=== PATIENT | female | born 1950 | race Caucasian/White ===

== ENCOUNTER 2024-12-19 13:42 | Emergency (ER) | payer MEDICARE, SELFPAY ==
--- OUTSIDE RECORDS SUMMARY | 2024-04-13 04:30 | XMS_ITS | Continuity of Care Document ---
Author Organization [facility], L TD Address [address] [place] [address] Phone Care Team Providers Care Tax Lawyer Name Role Phone Trace Limon MD Unavailable Unavailable Allergies, Adverse Reactions, Alerts Substance Reaction Status Criticality Rrzlvxc-NXT-QkX Reductase Inhibitors Acti ve No Information CIPROFLOXACIN HCL Active No Informa tion ciprofloxacin Active No Information Penicillins Active No Information Medications Medication Instructions Dosage Effective Dates (start - stop) Status Comments amlodipine 2.5 mg tablet take 1 tablet by oral route every day 2.5 MG - Active Vitamin D3 25 mcg (1,000 unit) capsule take 1 tablet by oral route every day 1 tablet - Active metoprolol tartrate 25 mg tablet take 1 tablet by oral route every day 25 MG - Active olmesartan 5 mg tablet take 1 tablet by oral route every day 5 MG - Active aspirin 81 mg tablet,delayed release take 1 tablet by oral route every day 81 MG - Active metformin 500 mg tablet take 1 tablet by oral route every day with morning and evening meals 500 MG - Active Zyrtec 10 mg tablet take 1 tablet by oral route every day 10 MG - Active irbesartan 75 mg tablet take 1 tablet by oral route every day 75 MG - No Longer Active Procedures Procedure Date [employer]DUS [employer] REFRACTION EYE EXAM ESTABLISHED PATIENT EYE EXAM ESTABLISHED PATIENT REFRACTION FUNDUS PHOTOGRAPHY EYE EXAM ESTABLISHED PATIENT REFRACTION EYE EXAM ESTABLISHED PATIENT REFRACTION EYE EXAM ESTABLISHED PATIENT FUNDUS PHOTOGRAPHY EYE EXAM, NEW PATIENT Vision svcs frames purchases EYE EXAM, NEW PATIENT VISION REFRACTION UPDATE Bifocal Lens Progressive lens per lens Lens Polycarb Bifocal Lens Progressive lens per lens Lens Polycarb A/R Standard [place] Roll And [place] Slip On Sunglasses Advance Directives Directive Yes / No Effective Date File Name No Information Encounters Encounter Description Practice Location Reason(s) For Visit Diagnoses Date Provider Providers Copied on Encounter [facility], [facility], [address] [place] [address], [id number] , tel:[phone] [facility] diabetic eye exam (chief complaint)v ision exam (chief complaint) Type 2 diabetes mellitus without complicationsLong term (current) use of oral hypoglycemic drugsHypermetropi a, bilateralRegular astigmatism, bilateralPresbyop iaAge-related nuclear cataract, bilateralVitreous degeneration, bilateral Ashly Woodward. [address] [place] [address], [id number], [place]. tel:[phone] Referring Provider: Trace iLmon I, [address] [place] [address], [id number]. tel:[phone] [facility], [facility], [address] [place] [address], [id number] , tel:[phone] [facility] diabetic eye exam (chief complaint)v ision exam (chief complaint) Age-related nuclear cataract, bilateralType 2 diabetes mellitus without complicationsNone xudative age-related macular degeneration, bilateral, early dry stageLong term (current) use of oral hypoglycemic drugsPresbyopia 4 Nikki Marie. [address] [place] [address], [id number], [place]. tel:[phone] Referring Provider: Marie Anderson, [address] [place] [address], [id number]. tel:[phone] [facility], [facility], [address] [place] [address], [id number] , [place] tel:[phone] [facility] cataract evaluation (chief complaint) Type 2 diabetes mellitus without complicationsNone xudative age-related macular degeneration, bilateral, early dry stageLong term (current) use of oral hypoglycemic drugsAge-related nuclear cataract, bilateral 3 Agusto Hooks. [address] [place] [address], [id number], [place]. tel:[phone] Referring Provider: Neva Flanagan, [address] [place] [address], [id number]. tel:[phone] [facility], [address] [place] [address], [id number] , [place] tel:[phone] [facility] diabetic eye exam (chief complaint)v ision exam (chief complaint) Combined forms of age-related cataract, bilateralType 2 diabetes mellitus without complicationsLong term (current) use of oral hypoglycemic drugsNonexudative age-related macular degeneration, bilateral, early dry stagePresbyopia 2 Nikki Salazar. [address] [place] [address], [id number], [place]. tel:[phone] Referring Provider: Marie Anderson, [address] [place] [address], [id number]. tel:[phone] [facility], [facility], [address] [place] [address], [id number] , [place] tel:[phone] [facility] no changes in vision (chief complaint) Vitreous degeneration, right eyeAge-related nuclear cataract, bilateralPresbyop ia 1 Nikki Salazar. [address] [place] [address], [address] [place] [address], . tel:[phone] [facility], [address] [place] [address], [id number] , tel:[phone] [facility] [place] (chief complaint) Vitreous degeneration, right eyeAge-related nuclear cataract, bilateral 1 Nikki Salazar. [address] [place] [address], [address] [place] [address], . tel:[phone] [facility], [address] [place] [address], [id number] , tel:[phone] [facility] No Information 3 Shirley Guillen. [address] [place] [address], [address] [place] [address], . [phone] [facility], [address] [place] [address], [address] [place] [address] , tel:[phone] [facility] PresbyopiaSenile nuclear sclerosis 2 Shirley Guillen. [address] [place] [address], [address] [place] [address], . tel:[phone] Family History Family Member Type Diagnosis Age At Onset Problem (finding) No Family history of St rabismus Problem (finding) No Family history of Re spiratory Disease Problem (finding) No Family history of Ca taracts Father Problem (finding) HBP Problem (finding) No Family history of St roke Problem (finding) No Family history of Ar thritis Mother Problem (finding) diabetes melli tus in first degree relative Mother Problem (finding) glaucoma Problem (finding) No Family history of He art Disease Problem (finding) No Family history of As thma Problem (finding) No Family history of Re tinal Disorders Problem (finding) No Family hist ory of Macular Degeneration Payers Payer name Insurance type Covered green party ID Authoriza tion(s) RR Medicare MB [id number] [facility] [id number] Social History Type Description Quantity Date Captured Comments Alcohol Use Details Unknown Caffeine Use Details Unknown Tobacco Use Status Moderate cigarette smoker (10-19 cigs/day) Smoking Status Heavy tobacco smoker Smoking Tobacco Use Details Cigarette: No Details Available Cigarette: 15 Cigarettes per day Sex Female Chief Complaint And Reason For Visit From encounter dated '04/13/2024 10:30'. diabetic eye exam (chief complaint). Description: The 73 year old patient presents for diabetic eyeexam in the right eye and left eye. Pt is taking oral medication. PCP is Senia Multani. Pt statesthat she did not check her BS this morning, but is using higher in the mornings ranging from 130-170. Pt states that lat A1C was 6 taken less than a year ago. vision exam (chief complaint). Description: The patient is present for dilated/vision exam in the right eye and left eye. Pt states that she has not noticed any changes in her vision in OU for distance and near with glasses. Pt states that when she started more HBP medication within the last 3 months that she started noticing floaters in the OS. Pt states that she has glare with lights at night. Pt denies pain or discomfort. Pt is not using any At's. Reason For Referral Reason For Referral No Information Plan Of Treatment Date Type Action Status Goal Tobacco cessation counseling completed Goal Tobacco cessation counseling completed Goal Tobacco cessation counseling completed Goal Tobacco cessation counseling completed Goal Tobacco cessation counseling completed History Of Present Illness Encounter Date Complaint History Of Prese nt Illness diabetic eye exam The 73 year ol d patient presents for diabetic eye exam in the right eye and left eye. Pt is taking oral medication. PCP is Senia Multani. Pt states that she did not check her BS this morning, but is using higher in the mornings ranging from 130-170. Pt states that lat A1C was 6 taken less than a year ago. Feb-28-2025 vision exam The patient is p resent for dilated/vision exam in the right eye and left eye. Pt states that she has not noticed any changes in her vision in OU for distance and near with glasses. Pt states that when she started more HBP medication within the last 3 months that she started noticing floaters in the OS. Pt states that she has glare with lights at night. Pt denies pain or discomfort. Pt is not using any At's. vision exam The patient is p resent for dilated vision exam in the right eye and left eye. Pt states that she has blurry vision OU for distance and near with glasses. Pt states that she has glare with lights. Pt denies pain or discomfort. Pt is not using any ATs. diabetic eye exam The 72 year ol d patient presents for diabetic eye exam in the right eye and left eye. Pt is taking oral medication. PCP is Senia Multani NP. Pt states that BS was 124 yesterday morning. Pt states that A1C is usually 6-6.4. cataract evaluation The 71 year old patient presents for evaluation of cataract evaluation in the right eye and left eye, referred SCS. Pt states she gets the glare at night from headlights. Pt states she does not see the road signs as well as she did before. Pt needs more light for reading. Pt does not use OTC eye drops/AT. Pt Type 2 Diabetic BS 103 and A1C 6.8. diabetic eye exam The 71 year ol d patient presents for evaluation of diabetic eye exam in the right eye and left eye. Pt is type 2 diabetic treating with oral meds. BS stable. Pt states BS runs 90-120 and last A1C was 3 months ago and it was 6. Please send letter to Argelia Multani. vision exam The patient is p resent for evaluation of vision exam in the right and left eye. Pt reports a decrease in vision since last exam. Pt states this affects both D&N c gls. Pt states that she does notice glare at night and she feels she can see better at night w/o glasses. Pt states she has not noticed any floaters in a while. Pt states that about 1 month ago, her СВЕТЛАНА was very tender. Pt thought her IOP might have went up, but it started feeling better the next day. Pt is not using eye meds or OTC AT. no changes in vision The 69 Year old female presents for f/u Vitreous Degeneration OD and Cataract OU. Pt states no changes in vision in the right eye and left eye since last exam, but has noticed occasional floaters every once in a while OD. It affects both near and far vision c gls. Pt states floaters dont move when she moves her eye and no flashes of light. The patient denies pain or discomfort and COVID-19 symptoms - temperature normal. Not using any eye meds or OTC AT. [place] The 69 Year old female presents for [place] in the unsure which eye. Pt notes she notices the [place] when either eye is closed, but always appears on the right side of vision. It started about 1 week(s) ago. It affects both near and far vision. The symptom is constant but patient states she has to look for it in brighter light. In addition, the condition is more noticeable in dimmer light. The patient denies COVID-19 symptoms - temperature normal and flashes, curtain pain. Pt notes some itching and dryness. No eye meds. Pt reports that 6 months ago she had some crusting but resolved with lid scrubs and using Systane. No longer Systane. Functional Status Date Functional Assessmen t No Information Instructions Date Instruction Additional Infor yoan Impression/Plan Impression/Plan Impression/Plan Impression/Plan Impression/Plan Impression/Plan - Return in 1 year with DRI for Ref T & D. Related to Presbyopia Presbyopia OU. Condi tion: will continue to monitor. NSC OU. Condition: will continue to monitor. - Presbyopia OU. REC updating RX with AR. No OAG. REC yearly eye exam especially to monitor for OAG. No retinal problems. NSC OU create glare. NSC OU. REC AR to reduce intensity of glare. Eyes appear healthy. 1 year for R,T,D Related to Presbyopia Assessments Type Assessment Date assessment Type 2 diabetes mellitus without complications assessment alf (current) use of oral hypoglycemic drugs assessment Hypermetropia, bilateral 2024 assessment Regular astigmatism, bilateral F assessment Presbyopia assessment Age-related nuclear cataract, bi lateral assessment Vitreous degeneration, bilateral Patient Care Teams Name Effective Dates (start - stop) Status Members No Information
--- OUTSIDE RECORDS SUMMARY | 2024-12-19 11:15 | XMS_ITS | Encounter Summary ---
Author Organization [facility] Address [address] [place] [address] Care Team Providers Care Gold Frame Assembler Name Role Phone Sandro Wilson MD Unavailable Senia Multani NP Unavailable [phone] Senia Multani NP Primary Care Provider + Reason for Visit * Reason Comments Post-op 12/03/24 TCAR w/ Lt Carotid angiogram & Aortic arch angiogram Lt Carotid stent @ Aortic arch w/ transcervical cutdown on Lt common artery Encounter Details Date Type Department Care Team (Late st Contact Info) Description 12/19/2024 11:15 AM PATIENTS TRANSPORTER Office Visit [facility] at [address] [place] [address] Wilbert Norman MD [facility] [address] [place] [address] [place] [address] Social History Tobacco Use Types Packs/Day Years Used Date Smoking Tobacco: Every Day Cigarettes 0.5 49 Started: 1975; Last attempted to quit: 2024 Smokeless Tobacco: Never Alcohol Use Standard Drinks/Week Comments Not Currently 0 (1 standard drink = 0.6 oz pur e alcohol) Social Connection and Isolation Panel Answer Date Recorded In a typical week, how many times do you talk on the phone with family, friends, or neighbors? More than three times a week 12/04/2024 How often do you get togethe r with friends or relatives? Three times a week 12/04/2024 How often do you attend chur ch or baptist services? Never 12/04/2024 Do you belong to any clubs o r organizations such as religious groups, unions, fraternal or athletic groups, or school groups? Yes 12/04/2024 How often do you attend meet ings of the clubs or organizations you belong to? More than 4 times per year 12/04/2024 Are you , , di vorced, , never , or living with a partner? 12/04/2024 AUDIT-C Answer Date Recorded Q1: How often do you have a drink containing alcohol? Never 11/28/2024 Q2: How many drinks containi ng alcohol do you have on a typical day when you are drinking? Patient does not drink Q3: How often do you have si x or more drinks on one occasion? Never 11/28/2024 Overall Financial Resource Strain (CARDIA) Answe r Date Recorded How hard is it for you to pa y for the very basics like food, housing, medical care, and heating? Not hard at all 12/04/2024 Hunger Vital Sign Answer Date Recorded Within the past 12 months, y ou worried that your food would run out before you got the money to buy more. Never true 12/05/19 25 Within the past 12 months, t he food you bought just didn't last and you didn't have money to get more. Never true 12/04/2024 PRAPARE - Transportation Answer Date Re corded In the past 12 months, has l ack of transportation kept you from medical appointments or from getting medications? No 11/15 In the past 12 months, has l ack of transportation kept you from meetings, work, or from getting things needed for daily living? No 12/04/2024 Housing Stability Vital Sign Answer Allen e Recorded In the last 12 months, was t here a time when you were not able to pay the mortgage or rent on time? No 12/04/2024 In the past 12 months, how m any times have you moved where you were living? 0 12/04/2024 At any time in the past 12 m [facility], were you homeless or living in a long term (including now)? No 12/04/2024 [facility] Utilities Answer Date Recorded In the past 12 months has th [employer], gas, oil, or water company threatened to shut off services in your home? No 12/04/2024 Personal Safety Answer Date Recorded Have you ever been in or are you currently in a harmful physical or emotional relationship or is someone making you feel afraid or unsafe? Denies 12/03/2024 Comments No Sex and Gender Information Value Date Recorded Sex Assigned at Not on file Legal Sex Female 4:20 AM PATIENTS TRANSPORTER Gender Identity Not on file Sexual Orientation Not on file documented as of this encounter Last Filed Vital Signs Vital Sign Reading Time Taken Comments Blood Pressure 152/84 12/19/2024 11:09 AM PATIENTS TRANSPORTER Pulse 66 12/19/2024 11:09 AM PATIENTS TRANSPORTER Temperature - - Respiratory Rate - - Oxygen Saturation 99% 12/19/2024 11:09 AM PATIENTS TRANSPORTER Inhaled Oxygen Concentration - - Weight 68 kg (150 lb) 12/19/2024 11:09 AM PATIENTS TRANSPORTER Height 157.5 cm (5' 2) 12/19/2024 11:09 AM PATIENTS TRANSPORTER Body Mass Index 27.44 12/19/2024 11:09 AM PATIENTS TRANSPORTER documented in this encounter Functional Status * BP Location Answer Date of Assessment Author Left arm 12/19/2024 11:09 AM PATIENTS TRANSPORTER Rony Felder MA * BP Location Answer Date of Assessment Author Left arm 12/19/2024 11:09 AM PATIENTS TRANSPORTER Rony Felder MA documented as of this encounter Plan of Treatment Not on file documented as of this encounter Visit Diagnoses Not on filedocumented in this encounter Care Teams Gold Frame Assembler Relationship Specialty Start Date End Date Senia Multani NP [address] [place] [address] PCP - General Nurse Practitioner 11/21/24 Sandro Wilson MD Referring Physician Cardiology 11/12/24 Senia Multani NP [address] [place] [address] Nurse Practitioner 11/12/24 documented as of this encounter
[2024-12-19 13:59] VITALS: BP 116/61; PULSE 70; RESP 18; TEMP 36.8; O2SAT 97
[2024-12-19 14:09] LABS: EDUAAPPEAR Clear; EDUABILI 1+ (Negative); EDUABLOOD Negative (Negative); EDUACOLOR1 Dark; EDUAGLUCOSE Negative (Negative); EDUAKETONE Trace (Negative); EDUALEUKO Trace (Negative); EDUANITRATE Negative (Negative); EDUAPH 6.0; EDUAPROTEIN 1+ (Negative); EDUASPGRAVITY 1.020; EDUAUROBILI 0.2
--- NOTE | 2024-12-19 14:40 | ED_ITS ---
HPI - Female Genitourinary General Chief complaint: Urogenital-Female Stated complaint: ear/UTI Time Seen by Provider: 12/19/24 14:08 Source: patient and RN notes reviewed Mode of arrival: ambulatory Limitations: no limitations History of Present Illness HPI Narrative: 74 year old female patient with hx of CVA in Oct, cardiac and carotid stents 2 weeks ago, presents today complaining of intermittent sharp left ear pain x2 days without drainage or muffled hearing. Currently rates her pain 3/10. She has tried tylenol, motrin, and zyrtec for her pain withour relief. She is also complaining of urgency, frequency, headache, and low back pain that has been sporadic over the last 5-6 days. States she experienced symptoms 5 days ago, then symptoms were absent for 3-4 days before returning again. Denies fever, hematuria, paresthesias. Related Data Home Medications ?Medication ?Instructions ?Recorded ?Confirmed ?Last Taken ?Type alprazolam 0.5 mg tablet mg 12/19/24 Unknown History amlodipine 10 mg tablet mg 12/19/24 Unknown History clopidogrel 75 mg tablet mg 12/19/24 Unknown History ezetimibe 10 mg tablet mg 12/19/24 Unknown History metformin 500 mg tablet mg 12/19/24 Unknown History metoprolol succinate 25 mg mg PO 12/19/24 Unknown His tory tablet,extended release 24 hr nitroglycerin 0.4 mg sublingual mg 12/19/24 Unknown H istory tablet olmesartan 40 mg tablet mg 12/19/24 Unknown History Allergies Allergy/AdvReac Type Severity Reaction Status Date / Time Penicillins Allergy Mild Hives Verified 12/19/24 13:45 [facility] Past Medical History Medical History (Updated 12/19/24 @ 15:02 by Kiara Fabian APRN, SH[facility]) History of CVA (cerebrovascular accident) Hypertension Surgical History Surgical History (Updated 12/19/24 @ 15:01 by Kiara Fabian APRN, SHARON) H/O heart artery stent Comments At time of signature, I have reviewed and agree with nursing past medical, surgical, social and family history unless otherwise noted. Please see nursing chart for further information. There is no relevant family history pertinent to the presenting complaint Exam Narrative: GENERAL: Well-appearing, well-nourished, and in no acute distress. HEAD: Normocephalic, atraumatic. EYES: EOMI. PERRL. No redness or drainage. Conjunctivae normal. ENT: Mucous membranes pink and moist. Nares clear. No rhinorrhea. Right TM normal. Left TM with moderate amount of cerumen in the canal with occlusion of the TM. See procedure note. NECK: Normal AROM. Surgical wound noted to the left anterior neck. CHEST: No respiratory distress. Clear to auscultation. HEART: Regular rate and rhythm. No murmur appreciated. MUSCULOSKELETAL: No bony tenderness. EXTREMITIES: Normal range of motion. No edema. SKIN: Warm, dry, no rash. Capillary refill normal. Normal skin turgor. NEURO: No focal deficits. Alert and oriented x3. Gait steady. PSYCH: Normal affect. No signs of depression or anxiety. Course Course Level of Care: Express Care Visit Vital Signs Vital signs: Vital Signs Temperature 98.3 F 12/19/24 13:59 Pulse Rate 70 12/19/24 13:59 Respiratory Rate 18 12/19/24 13:59 Blood Pressure 116/61 12/19/24 13:59 Pulse Oximetry 97 12/19/24 13:59 Oxygen Delivery Room Air 12/19/24 13:59 Temperature 98.3 F 12/19/24 13:59 Pulse Rate 70 12/19/24 13:59 Respiratory Rate 18 12/19/24 13:59 Blood Pressure 116/61 12/19/24 13:59 Pulse Oximetry 97 12/19/24 13:59 Oxygen Delivery Room Air 12/19/24 13:59 Reviewed Procedures Ear Wax Removal Left Ear: Ear Wax Removal Date: 12/19/24 Ear Wax Removal Time: 14:20 Cerumenolytic Used: other (water with small amt of peroxide) Results: Re-examined: cerumen removed completely TM Examination: TM(s) intact, normal appearance Ear Canal Exam: atraumatic Patient Tolerated Procedure: well Complications: no problems Technique: ear canal irrigated and ear canal curetted MDM - Female Genitourinary MDM Narrative Medical decision making narrative: 74 year old female patient with hx of CVA in Oct, cardiac and carotid stents 2 weeks ago, presents today complaining of intermittent sharp left ear pain x2 days without drainage or muffled hearing. Currently rates her pain 3/10. She has tried tylenol, motrin, and zyrtec for her pain withour relief. She is also complaining of urgency, frequency, headache, and low back pain that has been sporadic over the last 5-6 days. States she experienced symptoms 5 days ago, then symptoms were absent for 3-4 days before returning again. Denies fever, hematuria, paresthesias. Upon exam, patient had left ear canal with moderate cerumen causing loss of visualization of the TM. Cerumen removal accomplished with some irrigation and curette use. Visualization of the left TM showed a moderate serous otitis media without evidence of bacterial infection. Recommend starting some Flonase. Patient's urinalysis shows 1+ protein, trace ketones, and trace leukocytes. Taking into account this urinalysis as well as patient is very sporadic urinary symptoms, using shared decision making, will wait for urine culture to come back before starting patient on antibiotics for UTI. VSS. Anticipatory guidance. ED precautions given. Differential Diagnosis Differential diagnosis: Likely urinary tract infection and other (Pyelonephritis, otitis media, otitis externa, ruptured TM, serous otitis) Lab Data Labs: Lab Results 12/19/24 Range/Units 14:06 POC Urine Color Dark POC Urine Clarity Clear POC Urine pH 6.0 POC Ur Specif [place] 1.020 POC Urine Protein 1+ (Negative) POC Ur Glucose (UA) Negative (Negative) POC Urine Ketones Trace (Negative) POC Urine Blood Negative (Negative) POC Urine Nitrite Negative (Negative) POC Urine Bilirubin 1+ (Negative) POC Urine Urobilinogen 0.2 POC U Leukocyte Esteras Trace (Negative) Critical Care Time Critical Care Time Critical Care Time: No Discharge Plan Discharge Clinical Impression: Symptoms of urinary tract infection, Impacted cerumen of left ear Acute serous otitis media of left ear Qualifiers: Recurrence: non-recurrent Qualified Code(s): H65.02 - Acute serous otitis media, left ear Patient Disposition: Home Condition: Stable Instructions: Fluid In The Ear (Serous Otitis Media) (ED) Additional Instructions: Your left ear exam showed a small amount of fluid behind the eardrum. Please consider starting some Flonase to help with this. You may continue Tylenol as well. Your urinalysis at this time is not consistent with active infection. You will be notified in a few days if your urine culture comes back positive for infection and appropriate antibiotics will be called in for you at that time. If symptoms worsen to include fever, severe abdominal or back pain, vomiting, please go to the ER immediately for further evaluation and treatment. Patient Language: Mongolian Prescriptions: No Action metformin 500 mg tablet clopidogrel 75 mg tablet alprazolam 0.5 mg tablet amlodipine 10 mg tablet nitroglycerin 0.4 mg tablet, sublingual metoprolol succinate 25 mg tablet extended release 24 hr PO olmesartan 40 mg tablet ezetimibe 10 mg tablet Follow-up/Referrals: UNKNOWN,DOCTOR [Primary Care Provider] Time of Disposition: 14:39
--- OUTSIDE RECORDS SUMMARY | 2024-12-20 13:04 | XMS_ITS | Encounter Summary ---
Author Organization [facility] Address [address] [place] [address] Phone Care Team Providers Care Neurology Tech Name Role Phone Senia Multani APRN Primary Care Provider Encounter Details Date Type Department Care Team (Latest Contact Info) Description 04/15/2023 Transcribe Orders [facility] [address] [place] [address] Gisella Bella MD [address] [place] [address] [phone] (Work) Encounter for screening mammogram for breast cancer (Primary Dx) Social History Tobacco Use Types Packs/Day Years Used Date Smoking Tobacco: Every Day Cigarettes 0.5 30 Smokeless Tobacco: Never Alcohol Use Standard Drinks/Week Comments Yes 0 (1 standard drink = 0.6 oz pur e alcohol) AUDIT-C Answer Date Recorded Frequency of Alcohol Consumption Monthly or less 11/16/2018 Average Number of Drinks Not on file 019 Frequency of Binge Drinking Not on file 04/2018 Comments No Sex and Gender Information Value Date Recorded Sex Assigned at Not on file 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 Gender Identity Not on file Sexual Orientation Not on file Occupation Industry Job Start Date Job End Date [employer] Not on file Not on file N ot on file documented as of this encounter Plan of Treatment Upcoming Encounters Date Type Department Care Team (Late st Contact Info) Description 03/21/2025 9:15 AM PRODUCT DEVELOPMENT TECHNICIAN Office Visit [facility] Dermatology [facility] [address] [place] [address] Arely Clemens, YUNIER [address] [place] [address] documented as of this encounter Visit Diagnoses Diagnosis Encounter for screening mammogram for breast cancer- Primary documented in this encounter Care Teams Neurology Tech Relationship Specialty Start Date End Date Senia Multani APRN PCP - General Family Medicine 01/20/17 documented as of this encounter
--- OUTSIDE RECORDS SUMMARY | 2024-12-20 13:04 | XMS_ITS | Clinical Summary ---
Author Organization [facility] Address [address] [place] [address] Phone Care Team Providers Care Batter Scaler Name Role Phone Senia Multani APRN Primary Care Provider Allergies Active Allergy Reactions Criticality Noted Date Comments Atorvastatin Nausea & Vomiting Medium 05/31/2017 Muscle aches, GERD, weakness, nausea Ciprofloxacin Hives,Rash Low 11/16/2018 Gum-Pv Alcohol-Dental Adhesive Rash Low 02/22/2023 Latex Unknown 11/30/2019 Nitrofurantoin Monohyd/M-Cryst Palpitations Low 10/24/2018 Penicillins Anaphylaxis High 05/31/2017 Hypotension, passed out, N/V, anxiety Dgyiluz-Vin-Hbh Reductase Inhibitors Nausea Low 02/22/2023 Tapentadol Nausea Low 10/24/2018 Medications metFORMIN (GLUCOPHAGE) 500 mg tablet Take by mouth 2 (two) times daily Active cetirizine (ZYRTEC) 10 mg tablet Take 1 tablet by mouth Active ALPRAZolam (XANAX) 0.5 mg tablet Active albuterol HFA 90 mcg/actuation inhaler Take 2 puffs inhaled by mouth 9 Active cholecalciferol (VITAMIN D3) 25 mcg (1,000 unit) capsule Take 1,000 Units by mouth Active aspirin enteric coated 81 mg tablet, delayed release Take 81 mg by mouth every day Active metoprolol succinate ER (TOPROL XL) 25 mg extended release tabletIndication s:Essential (primary) hypertension Take 1 tablet (25 mg total) by mouth every day 90 tablet 3 4 Active Additional Information Patient not taking.Reported on 04/19/2024 olmesartan (BENICAR) 40 mg tabletIndication s:Essential (primary) hypertension Take 1 tablet (40 mg total) by mouth at bedtime 90 tablet 3 4 Active amLODIPine (NORVASC) 10 mg tablet Take 10 mg by mouth Active acetaminophen 325 mg tablet Take 325 mg by mouth Active Active Problems Problem Noted Date Diagnosed Date Atherosclerotic heart diseas e of [place] coronary artery without angina pectoris 12/29/2020 Assessment & Plan (09/19/2023 9:43 PM CDT): Coronary disease is stable without angina. I recommend continued medical therapy. If she develops any significant chest pain or shortness breath with exertion she will be scheduled for coronary angiogram. Assessment & Plan (06/14/2022 10:53 PM CDT): Coronary disease is stable without angina. I recommend medical therapy. I recommend risk factor modification including control of blood pressure and lipids. I recommend target LDL less than 70. I recommend target blood pressure less than 130/80 mm Hg. Assessment & Plan (11/16/2021 10:25 PM CDT): She does not have any symptoms of angina or anginal equivalent. At this time she requires medical therapy and risk factor modification. She is on aspirin. Unfortunately she did not tolerate atorvastatin and rosuvastatin because of myalgias. She is not willing to try Zetia or PCSK9 inhibitor. Assessment & Plan (05/04/2021 12:42 PM CDT): She does not have any angina. He requires aggressive risk factor modification. She does not want to take statin or PCSK9 inhibitor. Her blood pressure was also elevated but her blood pressure at home is much better controlled. I discussed with her option of restarting metoprolol succinate. She did not want to add any other medicine at this time. Assessment & Plan (04/06/2021 12:44 PM YARD SPOTTER): Coronary artery disease is stable. She does not have any angina. Previous coronary CT angiogram November 2020 showed 40-50% lad stenosis, 20-30% proximal left circumflex artery stenosis and 40 50% proximal and mid right coronary stenosis with normal ejection fraction. I recommend medical therapy and risk factor modification. Assessment & Plan (12/29/2020 11:08 AM YARD SPOTTER): Coronary disease is not severe and she does not have any angina. She requires medical therapy and risk factor modification. I have added amlodipine 5 mg daily. She is already on carvedilol 12.5 mg twice a day. She is on aspirin 325 mg daily. I have ordered rosuvastatin 10 mg daily. I recommend continued medical therapy. She does not require further cardiac workup at this time. I recommended that she quit smoking. Shortness of breath 08/12/2020 Assessment & Plan (08/12/2020 1:42 PM CDT): Predominantly pulmonary, continues to smoke, probable recent bronchitis, COVID- 19 last December. Symptoms improved with Pulmonary management. Need to exclude cardiac component, patient is concerned about cardiac inflammation and heart function. History of atypical nevus 12/06/2019 Abdominal aortic aneurysm (AAA) without rupture 11/16/2018 Atherosclerosis of [place] ar yessenia of both lower extremities with intermittent claudication 11/16/2018 Benign neoplasm of skin 11/16/2018 Bilateral carotid artery stenosis 11/16/2018 Benign paroxysmal positional vertigo, bilateral 11/16/2018 Degeneration of intervertebral disc of lumbar re gion 11/16/2018 Essential (primary) hypertension 11/16/2018 Assessment & Plan (09/19/2023 9:40 PM CDT): Blood pressure is significantly elevated. States that her blood pressure at home is around 130/80 mm Hg. I have started her on metoprolol succinate 25 mg daily. She is on olmesartan 40 mg daily. I have change olmesartan to 40 mg at night instead of morning. Assessment & Plan (06/14/2022 10:48 PM CDT): Blood pressure in clinic was elevated. She states that at home her blood pressure is 130/75 mm Hg. She is on maximum dose of olmesartan 40 mg daily. She did not tolerate amlodipine because of adverse effects including feeling sick, muscle pain, nausea and dizziness. She states that she could not function when she took amlodipine. Because of her diabetes mellitus target blood pressure should be 130/80 mm Hg or below. She does not want to take any additional blood pressure medication at this time. If in future she agrees to add a blood pressure medicines then option would be to start her on hydrochlorothiazide 25 mg daily along with potassium chloride 10 mEq daily. Assessment & Plan (11/16/2021 10:22 PM CDT): Blood pressure is under control on current medications. Assessment & Plan (05/04/2021 12:40 PM CDT): Blood pressure in the clinic with her own machine and clinic machine was elevated. Repeat blood pressure was 162/84 mm Hg. Prior to leaving her blood pressure did come down. She her machine recorded blood pressure of 138/80 mm Hg. Previously she was on metoprolol succinate 50 mg daily and she was able to tolerate this medicine without too much adverse effects. For now she will continue olmesartan 40 mg daily without any other medication. She states that she wants to continue her medications and not add any medicine at this time. Assessment & Plan (04/06/2021 12:47 PM YARD SPOTTER): He blood pressure is significantly elevated today. She cut down her carvedilol to 3.125 mg twice a day because of fatigue and tiredness and bad dreams at night. She quit taking amlodipine because of adverse effects. She thought that this medicine was causing her to have urinary incontinence and myalgias in combination with statin. She is on olmesartan 40 mg daily. I have added hydralazine 10 mg twice a day. I recommend that she bring her home blood pressure machine with her next time to check blood pressure with home machine and clinic by over machine and evaluate for any discrepancies or inaccuracy of home machine. Assessment & Plan (12/29/2020 11:04 AM YARD SPOTTER): Her blood pressure is not adequately controlled. Blood pressure in the right arm was higher than the left and I explained to her that right arm blood pressure is accurate and she should check blood pressure in the right arm only. I have added amlodipine 5 mg daily. She will continue all valsartan 40 mg daily and carvedilol 12.5 mg twice a day. Assessment & Plan (08/12/2020 1:41 PM CDT): Borderline control today, has not been checking it recently. No angina. Normal stress echo 2016. EF 55-60% 2019. Assessment & Plan (08/13/2019 10:17 AM CDT): Blood pressure controlled. No recent chest pain. Normal stress echo 2017. Recent EF 55-60%. Symptomatically doing well. GERD (gastroesophageal reflux disease) 9 History of nonmelanoma skin cancer 11/16/2018 Hypercholesterolemia 11/16/2018 Assessment & Plan (09/19/2023 9:43 PM CDT): Previously she did not tolerate atorvastatin and rosuvastatin because of myalgias. I recommended PCSK9 inhibitor therapy with Repatha. She did not agree to taking Repatha. Also she did not agree to taking Zetia. She does have coronary disease and peripheral arterial disease and she is status post left carotid endarterectomy in the past. She was diabetes mellitus and she has an active smoker. She however refused lipid-lowering therapy with Zetia or Repatha. Assessment & Plan (06/14/2022 10:52 PM CDT): She is intolerance to atorvastatin and rosuvastatin because of myalgias. She is extensive atherosclerotic cardiovascular disease in multiple vascular beds including carotid disease status post left carotid endarterectomy, coronary disease with correlated 50% proximal and mid right coronary artery stenosis, 40-50% ostial 1st diagonal artery stenosis and 20-30% proximal left circumflex artery stenosis. Also she is peripheral vascular disease and small abdominal aortic aneurysm. Target LDL 70 or below. Previous lipids on 09/20/2021 showed LDL 181. I discussed with her option of adding PCSK9 inhibitor such as Repatha 140 mg subcutaneous every 2 weeks. She refused Repatha. I discussed with her option of taking Zetia 10 mg daily which is likely to improve her LDL by 15 %. She does not want to take Zetia. I recommended low-cholesterol diet less than 200 mg cholesterol per day. Recommend that she cut down red meat, egg yolk and dairy products. I recommended regular exercise program at least 45 minutes of exercise 5 days a week. I discussed with her option of [id number] lipid lowering supplements such as CholesteRice which is red yeast rice products which has been shown to reduce LDL and total cholesterol. I did explain to her that only statin therapies and PCSK9 inhibitor therapy has been shown to prevent cardiovascular events including heart attack and stroke. Other therapies help improve the LDL but there is no proof that they prevent cardiovascular events including heart attack and stroke. After the discussion she would like to try lifestyle modification and then repeat cholesterol test and then decide on taking lipid-lowering [id number] supplement surgery as red yeast rice preparation. She is not agreeing to PCSK9 inhibitor therapy or Zetia. Assessment & Plan (11/16/2021 10:24 PM CDT): She did not tolerate atorvastatin and rosuvastatin because of myalgias. I discussed with her further options regarding markedly elevated LDL of 181. She has coronary disease and she has carotid artery disease status post left carotid endarterectomy and she has bilateral peripheral arterial disease. Target LDL 70 or less. I discussed with her further options. I recommended PCSK9 inhibitor such as Repatha 140 mg subcutaneous every 14 days. She refused to take Repatha. I discussed with her option of trying Zetia 10 mg daily. She refused that as well. She does not want to take any cholesterol medicine at this time. She is well aware of the risks of progression of coronary disease peripheral artery disease and carotid disease and risk of heart attack stroke and limb ischemia. I also recommended that she quit smoking. Assessment & Plan (05/04/2021 12:41 PM CDT): She has mixed hyperlipidemia. She is diabetic. Target LDL less than 100. Her LDL is 121. She did not tolerate atorvastatin because of myalgias. She did not tolerate rosuvastatin because of myalgias. I discussed with her option of switching to PCSK9 inhibitor such as Repatha subcutaneous twice a month. She does not want to take any new medicine at this time. She does have multivessel atherosclerotic disease including carotid artery stenosis, peripheral arterial disease and coronary disease. I did explain that in the absence of statin or PCSK9 inhibitor she is likely to have progression of her vascular and coronary disease. She states that she does not want to take additional medicines at this time. She is aware of the risks of not taking statin or PCSK9 inhibitor. Assessment & Plan (04/06/2021 12:47 PM YARD SPOTTER): She complains of myalgias. I have instructed her to take rosuvastatin 10 mg every other day. Assessment & Plan (12/29/2020 11:06 AM YARD SPOTTER): She has not started rosuvastatin 5 mg daily. Her previous LDL is 124 with HDL 53 and triglyceride 132 on 07/29/2020. She has multivessel coronary disease with 40-50% LAD and 40-50% right coronary artery stenosis and 20-30% left circumflex stenosis. She also has carotid stenosis and peripheral artery disease. Target LDL less than 70. I have ordered rosuvastatin 10 mg daily and follow-up lipids and ALT level after 3 months. I recommended low-cholesterol diet less than 20 mg per day. I recommend that she cut down red meat, egg yolk and dairy products. Assessment & Plan (08/12/2020 1:42 PM CDT): History of intolerance to atorvastatin. Refuses other statins. Not interested in the PCSK9 inhibitors. Assessment & Plan (08/13/2019 10:17 AM CDT): Statin intolerant, followed by primary care Osteopenia 11/16/2018 Other specified peripheral vascular diseases 04/2018 Uterine prolapse 11/16/2018 Vitamin D deficiency 11/16/2018 Anxiety, generalized 07/19/2018 Type 2 diabetes mellitus wit h hyperglycemia, without long-term current use of insulin 07/19/2018 Aortoiliac occlusive disease 06/03/2017 Assessment & Plan (08/12/2020 1:42 PM CDT): Extensive peripheral vascular disease, followed by the vascular team, has abdominal aortic aneurysm being monitored Assessment & Plan (08/13/2019 10:17 AM CDT): Extensive peripheral vascular disease, followed by the vascular team Resolved Problems Problem Noted Date Diagnosed Date Resolved Date Encounter for preprocedural cardiovascular examination 11/16/2018 06/13/2019 Encounters Date Type Department Care Team Description 11/29/2024 Telephone [facility] [address] [place] [address] Byron Villarreal APRN Missed Appointment 10/08/2024 Refill [facility] Card[facility] [address] [place] [address] Adelfo Voss MD Refill Request from Last 3 Months Family History Medical History Relation Name Comments Blood Disease Daughter Nunu Hodgkins Hodgkin's Daughter Nunu Diabetes Father Heart Father one bypass Other Father occlusion from left femoral to popliteal Squamous Cell Cancer Father Breast Cancer Mother Laura had breast can cer twice. 40 was second diagnosis Colon Cancer Mother Laura Diabetes Mother Laura No Pertinent Hx Son Ovarian Cancer Negative Relation Name Status Comments Daughter Nunu Alive Father Maternal Grandfather Maternal Grandmother Mother Laura Paternal Grandfather Paternal Grandmother Son Alive Social History Tobacco Use Types Packs/Day Years Used Date Smoking Tobacco: Every Day Cigarettes 0.5 30 Smokeless Tobacco: Never Tobacco Cessation:Ready to Q uit: Not Asked; Counseling Given: Not Answered Alcohol Use Standard Drinks/Week Comments Not Currently 0 (1 standard drink = 0.6 oz pur e alcohol) Rarely AUDIT-C Answer Date Recorded Frequency of Alcohol Consumption Monthly or less 11/16/2018 Average Number of Drinks Not on file 019 Frequency of Binge Drinking Not on file 04/2018 Comments No Sex and Gender Information Value Date Recorded Sex Assigned at Not on file Legal Sex Female 8:07 AM YARD SPOTTER Gender Identity Not on file Sexual Orientation Not on file Occupation Industry Job Start Date Job End Date [employer] Not on file Not on file N ot on file Last Filed Vital Signs Vital Sign Reading Time Taken Comments Blood Pressure 112/80 04/19/2024 11:11 AM YARD SPOTTER Pulse 82 04/19/2024 11:11 AM YARD SPOTTER Temperature 36.4 C (97.5 F) 01/09/2024 8:09 AM YARD SPOTTER Respiratory Rate 13 01/09/2024 10:05 AM YARD SPOTTER Oxygen Saturation 97% 04/19/2024 11:11 AM YARD SPOTTER Inhaled Oxygen Concentration - - Weight 60.1 kg (132 lb 6.4 oz) 04/19/2024 11:11 AM YARD SPOTTER Height 157.5 cm (5' 2) 04/19/2024 11:11 AM YARD SPOTTER Body Mass Index 24.22 04/19/2024 11:11 AM YARD SPOTTER Plan of Treatment Upcoming Encounters Date Type Department Care Team (Late st Contact Info) Description 03/21/2025 9:15 AM YARD SPOTTER Office Visit [facility] [address] [address] Arely Clemens, PA [address] [place] [address] Health Maintenance Due Date Last Done Comments HCPOA Document on File 2000 Zoster (Shingles) Vaccine (1 of 2) 2000 Eligible for Initial Annual Medicare Wellness Exam 11/14/2016 Pneumococcal Vaccines (50+) (2 of 2 - PCV) 11/11/2017 11/11/2016 Diabetes: Foot Exam 11/16/2018 Diabetes: Urine Microalbumin 11/16/2018 Diabetes: Glyco Hemoglobin A1C 03/20/2023 09/17/2022 Diabetes: Comprehensive Metabolic Panel 09/18/2023 09/17/2022, 04/26/2022, 06/14/2017 Lipid Panel 09/18/2023 09/17/2022 COVID-19 Vaccine ( season) 2024 Influenza Vaccine (#1) 2024 , 12/15/2022, 01/12/2021, Additional history exists Breast Cancer Screening 10/30/2024 10/31/19 24, 10/31/2023, 05/10/2022, Additional history exists Depression Screening 02/16/2025 02/17/2024, 02/16/2023, 02/26/2022, Additional history exists Fall Screening 02/16/2025 02/17/2024, 02/16/2023 Diabetes: Eye (Ophthalmology) Exam 04/13/2025 04/13/2024, 04/13/2024, 03/23/2023, Additional history exists DTaP/Tdap/Td Vaccines (2 - Td or Tdap) 09/19/2025 09/20/2015 RSV Vaccine (60+/) (1 - 1-dose 75+ series) 2025 Diagnostic Colonoscopy 01/08/2029 01/09/2024, 2023 HIB Vaccines Aged Out No longer eligi ble based on patient's age to complete this topic HPV Vaccines Aged Out No longer eligi ble based on patient's age to complete this topic Hepatitis A Vaccines Aged Out No long er eligible based on patient's age to complete this topic Hepatitis B Vaccines Aged Out No long er eligible based on patient's age to complete this topic IPV Vaccines Aged Out No longer eligi ble based on patient's age to complete this topic Meningococcal B Vaccine Aged Out No l onger eligible based on patient's age to complete this topic Meningococcal Vaccine (ACWY) Aged Out No longer eligible based on patient's age to complete this topic Rotavirus Vaccines Aged Out No longer eligible based on patient's age to complete this topic Procedures Procedure Name Priority Date/Time Associated Diagnosis Comments COLONOSCOPY 01/09/2024 8:59 AM YARD SPOTTER YADIEL SCREENING BREAST BILATERAL W/CAD Routine 10/31/2023 7:54 AM CDT Screening mammogram, encounter for GLYCO HB A1C Routine 09/17/2022 7:46 AM CDT Elevated glucose GENERAL HEALTH PANEL Routine 09/17/2022 7:46 AM CDT Elevated cholesterol LIPID PANEL (W/ DIRECT LDL) Routine 09/17/2022 7:45 AM CDT Hypercholesterolemia Atherosclerosis of [place] coronary artery of [place] heart without angina pectoris from Last 3 Months or Most Recently Relevant to Health Maintenance Results * COLONOSCOPY (01/09/2024 8:59 AM YARD SPOTTER) REPORT COMPONENT Attending MD: Shania Jackson MD, [id number] Procedure: Colonoscopy [facility] REPORT COMPONENT Findings: The terminal ileum appeared normal. Three sessile polyps were found in the sigmoid colon. The polyps were 2 to 3 mm in size. These polyps were removed with a cold biopsy forceps. Resection and retrieval were complete. Non-bleeding internal hemorrhoids were found during retroflexion. The hemorrhoids were Grade I (internal hemorrhoids that do not prolapse). The exam was otherwise normal throughout the examined colon. [facility] REPORT COMPONENT Recommendation: - Patient has a contact number available for emergencies. The signs and symptoms of potential delayed complications were discussed with the patient. Return to normal activities tomorrow. Written discharge instructions were provided to the patient. - Resume previous diet. Start fiber supplements such as Metamucil on a daily basis. - Continue present medications. - Repeat colonoscopy date to be determined after pending pathology results are reviewed for surveillance. - The findings and recommendations were discussed with the designated responsible adult. - Discharge patient to home (with escort). - The patient will be observed post-procedure, until all discharge criteria are met. [facility] Anatomical Region Laterality Modality Other 01/09/2024 8:59 AM YARD SPOTTER Impressions 01/09/2024 9:36 AM YARD SPOTTER Impression: - The examined portion of the ileum was normal. - Three 2 to 3 mm polyps in the sigmoid colon, removed with a cold biopsy forceps. Resected and retrieved. - Non-bleeding internal hemorrhoids. Narrative 01/09/2024 9:36 AM YARD SPOTTER [facility] Patient Name: Cinthia Vela Procedure Date: 01/09/2024 8:59 AM Gender: Female Date of : 1950 Indications: Abdominal pain in the right lower quadrant, Change in bowel habits. Personal history of polyps Medicines: Fentanyl 100 micrograms IV, Midazolam 6 mg IV, The level of sedation administered was moderate, Sedation Administered by the Nurse, See Nursing Notes for medication administration Estimated Blood Loss: Estimated blood loss: none. Complications: No immediate complications. No blood products administered. Implants or grafts: None permanent Procedure: Pre-Anesthesia Assessment: - Prior to the procedure, a History and Physical was performed, and patient medications and allergies were reviewed. The patient's tolerance of previous anesthesia was also reviewed. The risks and benefits of the procedure and the sedation options and risks were discussed with the patient. All questions were answered, and informed consent was obtained. Prior Anticoagulants: The patient has taken no anticoagulant or antiplatelet agents. ASA Grade Assessment: II - A patient with mild systemic disease. After reviewing the risks and benefits, the patient was deemed in satisfactory condition to undergo the procedure. After I obtained informed consent, the scope was passed under direct vision. Throughout the procedure, the patient's blood pressure, pulse, and oxygen saturations were monitored continuously. The Colonoscope was introduced through the anus and advanced to the terminal ileum, with identification of the appendiceal orifice and IC valve. The colonoscopy was performed without difficulty. The patient tolerated the procedure well. The quality of the bowel preparation was adequate. The quality of the bowel preparation was evaluated using the BBPS ([place] Bowel Preparation Scale) with scores of: Right Colon = 3 (entire mucosa seen well with no residual staining, small fragments of stool or opaque liquid), Transverse Colon = 3 (entire mucosa seen well with no residual staining, small fragments of stool or opaque liquid) and Left Colon = 3 (entire mucosa seen well with no residual staining, small fragments of stool or opaque liquid). The total BBPS score equals 9. The terminal ileum, the appendiceal orifice and the rectum were photographed. Providers: Shania Jackson MD Procedure Code(s): --- Technical --- 38906, Colonoscopy, flexible; with biopsy, single or multiple Diagnosis Code(s): --- Technical --- D12.5, Benign neoplasm of sigmoid colon R10.31, Right lower quadrant pain R19.4, Change in bowel habit CPT copyright 2021 [employer]. All rights reserved. The codes documented in this report are preliminary and upon insight director review may be revised to meet current compliance requirements. Attending Participation: I personally performed the entire procedure. I was present with the patient for the duration of the procedure, and supervised endoscopy staff. For moderate sedation cases, see RN flow sheet. For anesthesia sedated cases see anesthesia flow sheet. Shania Jackson MD 01/09/2024 9:35:52 AM Electronically signed and Authenticated by Shania Jackson MD Number of Addenda: 0 Note Initiated On: 01/09/2024 8:59 AM Procedure Date: 01/09/2024 8:59:13 AM Scope Withdrawal Time 0 hours 13 minutes 1 second Total Procedure Duration Time 0 hours 17 minutes 24 seconds Scope In: 9:14:41 AM Scope Out: 9:32:05 AM Shania Jackson MD GI PROCEDURES Final Result * YADIEL SCREENING BREAST BILATERAL W/CAD (10/31/2023 7:54 AM CDT) Anatomical Region Laterality Modality Breast Bilateral Mammography Ana SimmonsKhloeRomaine CARTOGRAPHIC TECHNICIAN MAMMOGRAPHY Final Res ult * (ABNORMAL) GLYCO HB A1C (09/17/2022 7:46 AM CDT) GLYCO HB A1C 6.0(H) 4.2 - 5.6 % [facility] Comment: Prediabetic: 5.7-6.4 Diabetes: >6.4 Glycemic control for adults with diabetes: <7.0 Pre-diabetes is a range suggesting higher than normal blood glucose that can help determine and increase risk of diabetes as determined by age and other risk factors. [facility], [address] [place] [address] 09/17/2022 7:46 AM CDT 09/17/2022 11:59 AM CDT Gisella Bella MD HEM/CHEM/IMMUN-BLOOD Final Re sult Performing Organization Address City/State/[facility] Co de Phone Number [facility] [address] [place] [address]. [address] * (ABNORMAL) GENERAL HEALTH PANEL (09/17/2022 7:46 AM CDT) WBC 5.92 4.50 - 11.00 10^3/uL [facility] RBC 4.49 3.80 - 5.30 10^6/uL [facility] HGB 15.7 11.7 - 16.0 g/dL [facility] HCT 44.3 35.0 - 47.0 % [facility] MCV 98.7 80.0 - 101.0 fL [facility] MCH 34.9 26.0 - 35.0 pg [facility] MCHC 35.4 31.0 - 37.0 g/dL [facility] RDW 11.4 9.9 - 17.1 % [facility] PLATELET 187 150 - 400 10^3/uL [facility] SEG 53.1 % [facility] LYMPHOCYTE 34.0 % [facility] MONOCYTE 5.4 % [facility] EOSINOPHIL 5.9 % [facility] BASOPHIL 1.6 % [facility] ABSOLUTE NEUTR 3.14 1.80 - 7.70 10^3/uL [facility] ABSOLUTE LYMPH 2.01 1.00 - 4.80 10^3/uL [facility] ABSOLUTE MONO 0.32 0.00 - 0.80 10^3/uL [facility] ABSOLUTE EOS 0.35 0.00 - 0.50 10^3/uL [facility] ABSOLUTE BASO 0.09 0.00 - 0.20 10^3/uL [facility] TSH 1.44 0.35 - 4.94 uIU/mL [facility] CALCIUM 9.4 8.4 - 10.2 mg/dL [facility] GLUCOSE 137(H) 65 - 99 mg/dL [facility] Comment: REFERENCE RANGE FOR GLUCOSE: NON- ADULT 65 TO 99 MG/DL-FASTING, NORMOGLYCEMIA 100 TO 125 MG/DL-IMPAIRED FASTING GLUCOSE 65 TO 125 MG/DL-NORMOGLYCEMIA, NON-FASTING IMPAIRED GLUCOSE TOLERANCE IS DIAGNOSED IF THE FOLLOWING ARE PRESENT: FASTING GLUCOSE LEVEL 100-125 MG/DL; AND THE 120 MINUTES SAMPLE IS BETWEEN 140-199 MG/DL BASED ON ADA GUIDELINES, FOLLOW-UP REPORT OF THE EXPERT COMMITTEE ON THE DIAGNOSIS OF DIABETES MELLITUS. DIABETES CARE,VOL.26.. [place] IS BASED ON FASTING REF RANGE BUN 19(H) 7 - 18 mg/dL [facility] CREATININE 0.7 0.6 - 1.0 mg/dL [facility] TOTAL PROTEIN 7.9 6.5 - 8.5 g/dL [facility] ALBUMIN 4.8 3.8 - 5.0 g/dL [facility] BILIRUBIN, TOTAL 0.4 0.1 - 1.2 mg/dL [facility] AST 25 8 - 39 U/L [facility] ALT 14 0 - 35 U/L [facility] ALKALINE PHOSPHATASE 112 38 - 126 U/L [facility] SODIUM 140 135 - 143 mEq/L [facility] POTASSIUM 4.2 3.6 - 5.0 mEq/L [facility] CHLORIDE 104 98 - 107 mEq/L [facility] Comment: CHLORIDE NOTE: Triglyceride at 600 mg/dl may cause a positive bias of approximately 2.1 mmol/L for Chloride CO2 29 22 - 32 mmol/L [facility] GFR:NON- 82 arbitrary unit [facility] GFR: 100 arbitrary unit [facility] Comment: CHRONIC KIDNEY DISEASE <60 ML/MIN/1.73 M^2 KIDNEY FAILURE <15 ML/MIN/1.73 M^2 REFERENCE: NKDEP (MDRD equation) NOTE: Results of GFR should be interpreted in relation to patient's clinical history & presenting condition. [facility], [address] [place] [id number] 09/17/2022 7:46 AM CDT 09/17/2022 11:59 AM CDT us Gisella Bella MD HEM/CHEM/IMMUN-BLOOD Final Re sult [facility] [address] [place] [address]. [place] [address], * (ABNORMAL) LIPID PANEL (W/ DIRECT LDL) (09/17/2022 7:45 AM CDT) CHOLESTEROL, TOTAL 232(H) <200 mg/dL [facility] TRIGLYCERIDES 145 0 - 150 mg/dL [facility] Comment:TRIGLYCERIDES SHOULD BE FASTING FOR 14 HOURS HDL CHOLESTEROL 49 40 - 110 mg/dL [facility] LDL, DIRECT 229(H) 0 - 100 mg/dL [facility] Comment: ADULT REFERENCE RANGE LIPID PROFILE (mg/dl)*: Total Cholesterol < 200 Desirable 200-239 Borderline High >/= 240 High Triglycerides < 150 Normal 150-199 Borderline High 200-499 High HDL Cholesterol < 40 A major factor for heart disease >/= 60 Considered protective against heart disease LDL Cholesterol (Calculated) < 100 Optimal 100-129 Near Optimal 130-159 Borderline High 160-189 High >/= 190 Very High *[facility], NIH Diseases and Conditions Index, 2007. IF RESULT IS INDETERMINATE = UNABLE TO DETERMINE LDL DUE TO ELEVATED TRIGLYCERIDE. [facility], [address] [place] [id number] 09/17/2022 7:45 AM CDT 09/17/2022 11:59 AM CDT us Adelfo Voss MD HEM/CHEM/IMMUN-BLOOD Final Resu lt [facility] [address] [facility] [place] [address], from Last 3 Months or Most Recently Relevant to Health Maintenance Insurance [employer] [facility] [employer] [facility] [employer] Care Teams Batter Scaler Relationship Specialty Start Date End Date Senia Multani APRN PCP - General Family Medicine 01/20/17
--- OUTSIDE RECORDS SUMMARY | 2024-12-20 13:04 | XMS_ITS | Clinical Summary ---
Author Organization [facility] Address [address] [place] [address] Phone Care Team Providers Care Communications Superintendent Name Role Phone Senia Multani APRN, CAPACITY MANAGEMENT SPECIALIST Primary Care Pro vider Mikayla Osorio APRN, CAPACITY MANAGEMENT SPECIALIST Unavailable Allergies Active Allergy Reactions Criticality Noted Date Comments Ciprofloxacin Hives,Rash 02/22/2023 Denture Adhesive Rash 02/22/2023 Latex Other (see Comments) 11/30/2019 Atorvastatin Other (see Comments) Medium 05/31/2017 Muscle aches, GERD, weakness, nausea Nitrofurantoin Palpitations Low 10/24/2018 Other-Environmental Allergen (Not Found In Search) Unknown 05/12/2022 Penicillin G Anaphylaxis 02/22/2023 Penicillins Anaphylaxis High 05/31/2017 Hypotension, passed out, N/V, anxiety Statins Nausea 02/22/2023 Tapentadol Nausea 10/24/2018 Medications Cholecalciferol (VITAMIN D-3) 400 UNIT Tablet Take 1 Tablet by mouth daily. Active Acetaminophen (Tylenol) 325 MG Capsule Tylenol oral 4 Active aspirin EC 81 MG Tablet Delayed Response aspirin 81 mg tablet,delayed release 2 Active cetirizine (ZyrTEC Allergy) 10 MG Tablet Zyrtec 10 mg tablet 4 Active albuterol 108 (90 Base) MCG/ACT Aerosol SolutionIndicati ons:Acute cough take 2 Puffs by inhalation every 4 hours as needed for Cough. 18 g 4 Active olmesartan (BENICAR) 5 MG Tablet Take 1 Tablet by mouth daily. 5 Active metFORMIN (GLUCOPHAGE) 500 MG Tablet Take 1 Tablet by mouth 2 times daily (with meals). 180 Tablet 3 5 Active ALPRAZolam (XANAX) 0.5 MG TabletIndication s:Anxiety, generalized TAKE 1 TABLET BY MOUTH 3 TIMES DAILY NEEDED FOR ANXIETY 90 Tablet 5 Active amLODIPine (NORVASC) 10 MG Tablet TAKE 1 TABLET BY MOUTH DAILY 90 Tablet 5 Active metoprolol Succinate (TOPROL-XL) 25 MG TABLET SR 24 HR TAKE 1 TABLET BY MOUTH DAILY 90 Tablet 5 Active Active Problems Problem Noted Date Diagnosed Date Current smoker 02/22/2023 History of left-sided carotid endarterectomy 10/2023 PEYMAN (obstructive sleep apnea) 05/11/2021 Chronic right-sided thoracic back pain 2 Atherosclerotic heart diseas e of [place] coronary artery without angina pectoris 12/29/2020 Overview (03/24/2021): Last Assessment & Plan: Coronary disease is not severe and she [...] time. I recommended that she quit smoking. 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 No recent chest pain. Normal stress echo 2016. Recent EF 55-60%. Symptomatically doing well. History of nonmelanoma skin cancer 11/16/2018 Hypercholesterolemia 11/16/2018 Overview (05/27/2020): Last Assessment & Plan: Statin intolerant, followed by primary care Other specified peripheral vascular diseases 04/2018 Benign neoplasm of skin 11/16/2018 Type 2 diabetes mellitus wit h hyperglycemia, without long-term current use of insulin 07/19/2018 Overview (08/26/2020): Last dilated eye exam 05/27/20 Anxiety, generalized 07/19/2018 Aortoiliac occlusive disease 06/03/2017 Nuclear senile cataract 09/15/2011 Benign paroxysmal positional vertigo, bilateral Female climacteric state GERD (gastroesophageal reflux disease) Osteopenia Degeneration of intervertebral disc of lumbar re gion Uterine prolapse Vitamin D deficiency Resolved Problems Problem Noted Date Diagnosed Date Resolved Date Cough 08/28/2020 09/14/2022 Diarrhea 06/03/2017 07/19/2018 Sty 06/03/2017 07/19/2018 Aphthous ulcer recurrent 06/2018 Encounters Date Type Department Care Team Description 10/31/2024 Telephone [facility] [place] [address] [place] [address] Senia Multani, STAIN APPLICATOR, CAPACITY MANAGEMENT SPECIALIST [facility]/09[facility] [address] [place] [address] Senia Multani, EVELYN, CAPACITY MANAGEMENT SPECIALIST Medication Refill 10/08[facility]20[facility] [place] [facility] [address] [place] [address] Zachery Toscano MD Medication Refill 10/08/2024 Refill [facility] [place] [address] [place] [address] Senia Multani, EVELYN, NEFTALI Medication Refill from Last 3 Months Immunizations Immunization Administration Dates Next Due Influenza Vaccine 11/11/2016,11/13/2015,11/14/19 15 Influenza Vaccine, Quadrivalent, PF 01/12/2021,1 Influenza, Quadrivalent, Adjuvanted 12/15/2022 Influenza, Trivalent, Adjuvanted, PF 12/07/2023 Influenza, high-dose, trivalent, PF 12/02/2018,1 02/14/2017 Pneumococcal Vaccine Adult - 23 Valent 7 TDAP Vaccine 09/20/2015 Family History Medical History Relation Name Comments Diabetes Brother 1 Diabetes Brother 2 Diabetes Brother 3 Diabetes Father Squamous Cell Carcinoma Father Colon Cancer Maternal Aunt Diabetes Maternal Aunt Diabetes Maternal Grandfather Congestive Heart Failure Maternal Grandmother Diabetes Maternal Grandmother Breast Cancer Mother Colon Cancer Mother Diabetes Mother Other-comment Paternal Grandmother BYPASS No Known Problems Sister 1 Diabetes Sister 2 Diabetes Sister 3 Diabetes Sister 4 Relation Name Status Comments Brother 1 Brother 2 Brother 3 Father Maternal Aunt Maternal Grandfather Maternal Grandmother Mother Paternal Grandmother Sister 1 Sister 2 Sister 3 Sister 4 Social History Tobacco Use Types Packs/Day Years Used Date Smoking Tobacco: Every Day Cigarettes 0.5 44 Smokeless Tobacco: Never Tobacco Cessation:Ready to Q uit: No; Counseling Given: Yes Alcohol Use Standard Drinks/Week Comments Yes 0 (1 standard drink = 0.6 oz pur e alcohol) rarely [facility] Utilities Answer Date Recorded In the past 12 months has [employer], gas, oil, or water [employer] threatened to shut off services in your home? No 05/23/2024 Social Connection and Isolation Panel Answer Date Recorded In a typical week, how many times do you talk on the phone with family, friends, or neighbors? Patient declined 05/23/2024 Frequency of Social Gatherings with Friends and Family Not on file 05/23/2024 How often do you attend alevism or zoroastrianism serv ices? Patient declined 05/23/2024 Do you belong to any clubs o r organizations such as alevism groups, unions, fraternal or athletic groups, or school groups? Patient declined 05/23/2024 How often do you attend meet ings of the clubs or organizations you belong to? Patient declined 05/23/2024 Are you , , di vorced, , never , or living with a partner? 05/23/2024 AUDIT-C Answer Date Recorded Q1: How often do you have a drink containing alc ohol? Patient declined 05/23/2024 Q2: How many drinks containi ng alcohol do you have on a typical day when you are drinking? Patient declined 05/23/2024 Q3: How often do you have si x or more drinks on one occasion? Patient declined 05/23/2024 Overall Financial Resource Strain (CARDIA) Answe r Date Recorded How hard is it for you to pa y for the very basics like food, housing, medical care, and heating? Patient declined 05/23/2024 PHQ-2 Answer Date Recorded Total Score - Questions 1-9 0 02/2023 [facility] - Occupational Stress Questionnaire Answer Date Recorded Do you feel stress - tense, restless, nervous, or anxious, or unable to sleep at night because your mind is troubled all the time - these days? Only a little 05/23/2024 Exercise Vital Sign Answer Date Recorde d On average, how many days pe r week do you engage in moderate to strenuous exercise (like a brisk walk)? Patient declined On average, how many minutes do you engage in exercise at this level? Patient declined 05/23/2024 Hunger Vital Sign Answer Date Recorded Within the past 12 months, y ou worried that your food would run out before you got the money to buy more. Never true 05/24/19 25 Within the past 12 months, t he food you bought just didn't last and you didn't have money to get more. Never true 05/23/2024 PRAPARE - Transportation Answer Date Re corded In the past 12 months, has l ack of transportation kept you from medical appointments or from getting medications? No 10/2024 In the past 12 months, has l ack of transportation kept you from meetings, work, or from getting things needed for daily living? No 05/23/2024 Housing Stability Vital Sign Answer Allen e Recorded In the last 12 months, was t here a time when you were not able to pay the mortgage or rent on time? No 04/06/2023 In the last 12 months, how many places have you lived? 1 04/06/2023 In the last 12 months, was t here a time when you did not have a steady place to sleep or slept in a [place] (including now)? No 04/06/2023 Housing Stability Vital Sign Answer Allen e Recorded In the last 12 months, was t here a time when you were not able to pay the mortgage or rent on time? No 05/23/2024 Number of Times Moved in the Last Year Not on fi le 05/23/2024 At any time in the past 12 m [facility], were you homeless or living in a [place] facility (including now)? No 05/23/2024 Education Answer Date Recorded What is the highest level of school you have completed or the highest degree you have received? Associate degree: occupational, technical, or vocational program 05/27/2020 Sexually Active Control Partners Comments Yes Post-menopausal Comments No Sex and Gender Information Value Date Recorded Sex Assigned at Not on file Legal Sex Female 8:15 PM [employer] Gender Identity Not on file Sexual Orientation Not on file Last Filed Vital Signs Vital Sign Reading Time Taken Comments Blood Pressure 138/70 05/24/2024 7:28 AM CDT Pulse 62 05/24/2024 7:28 AM CDT Temperature 37.1 C (98.7 F) 05/24/2024 7:28 AM CDT Respiratory Rate 20 05/24/2024 7:28 AM CDT Oxygen Saturation 94% 05/24/2024 7:28 AM CDT Inhaled Oxygen Concentration - - Weight 60.3 kg (133 lb) 05/24/2024 7:28 AM CDT Height 157.5 cm (5' 2) 05/24/2024 7:28 AM CDT Body Mass Index 24.33 05/24/2024 7:28 AM CDT Plan of Treatment Upcoming Encounters Date Type Department Care Team (Late st Contact Info) Description 01/02/2025 7:20 AM [employer] [facility] Visit [facility] [address] [place] [address] Senia Multani, STAIN APPLICATOR, CAPACITY MANAGEMENT SPECIALIST [address] [place] [address] Health Maintenance Due Date Last Done Comments Cologuard 11/27/1995 Respiratory Syncytial Virus (RSV) Immunization (Adult) (1 - Risk 50-74 years 1-dose series) 2000 Medicare Initial AWV [id number] 11/14/2016 Pneumococcal Immunization (50+ years) (2 of 2 - PCV) 11/11/2017 11/11/2016 Diabetes: Foot Exam 09/15/2023 09/14/2022, 07/27/2019, 07/27/2019, Additional history exists Immunochemical Fecal Occult Blood 04/09/2024 04/09/2023 DEXA Bone Density 04/12/2024 04/12/2022, 12/29/2016 Influenza Immunization (#1) 10/15/202411/15, 12/15/2022, 01/12/2021, Additional history exists Mammogram 10/30/2024 10/31/2023, 10/15, 05/10/2022, Additional history exists Diabetes: Eye Exam 04/13/2025 04/13/2024, 0 04/13/2024, 03/23/2023, Additional history exists Diabetes: Nephropathy Screening 05/24/2025 05/24/2024, 05/24/2024, 02/04/2024, Additional history exists Lung Cancer Screening 06/01/2025 06/01/2024 , 06/28/2023, 12/22/2022, Additional history exists Diabetes: Hemoglobin A1c 06/03/2025 025, 10/30/2024, 05/24/2024, Additional history exists Td Immunization Every 10 Years (Adults With 1 Tdap) 09/19/2025 09/20/2015 Colonoscopy 01/08/2034 01/09/2024, 12/16, 01/09/2024, Additional history exists Colorectal Cancer Screening 01/08/2034 DTaP/Tdap/Td Immunization Discontinued 09/20/2015 Pneumococcal Immunization Combined Discontinued 11/11/2016 Hepatitis C Virus (HCV) Screening Completed 12/05/2023 Hepatitis B Immunization Aged Out No longer eligible based on patient's age to complete this topic Human Papillomavirus (HPV) Immunization Aged Out No longer eligible based on patient's age to complete this topic Meningococcal Immunization (ACWY) Aged Out No longer eligible based on patient's age to complete this topic Rotavirus Immunization Aged Out No lo nger eligible based on patient's age to complete this topic SARS-COV-2 Immunization Discontinued Zoster Immunization Discontinued Procedures Procedure Name Priority Date/Time Associated Diagnosis Comments CARDIOLOGY CONSULT 12/17/2024 12 :00 AM [employer] STRESS TEST 11/27/2024 12:00 AM CDT CARDIOLOGY CONSULT 11/22/2024 12 :[address] CHEST W/O CONTRAST Routine 06/01/2024 4:11 PM CDT Enlarged lymph nodes UR MICROALBUMIN/CREATIN INE RATIO RANDOM Routine 05/24/2024 8:29 AM CDT Type 2 diabetes mellitus with hyperglycemia, without long-term current use of insulin (HCC) HEMOGLOBIN A1C W/ ESTIMATED GLUCOSE Routine 05/24/2024 8:29 AM CDT Type 2 diabetes mellitus with hyperglycemia, without long-term current use of insulin (HCC) HM DILATED EYE EXAM 04/13/2024 1 2:00 AM [employer]ER HEPATITIS C ANTIBODY Routine 12/05/2023 9:09 AM CDT Preventative health care (Adult) Need for hepatitis C screening test YADIEL SCREENING BILATERAL DIGITAL W CAD W TIFFANIE Routine 10/31/2023 11:01 AM CDT Encounter for screening mammogram for malignant neoplasm of breast STOOL, OCCULT BLOOD IMMUNOASSAY (IFOB) Routine 04/09/2023 8:21 AM [employer] Change in bowel movement HM COLONOSCOPY Routine 10/03/2019 HM DEXA SCAN Routine 12/29/2016 from Last 3 Months or Most Recently Relevant to Health Maintenance Results * CARDIOLOGY CONSULT (12/17/2024 12:00 AM [employer]) Only the most recent of2 resultswithin the time period is included. 12/17/2024 us Provider Scan GENERIC SCAN ORDERS CONSULT Guera l Result SCAN * STRESS TEST (11/27/2024 12:00 AM CDT) Anatomical Region Laterality Modality Other 11/27/2024 us Provider Scan CV PROCEDURES SCHED Final Result * CT CHEST W/O CONTRAST (06/01/2024 4:11 PM CDT) Anatomical Region Laterality Modality Chest N/A Computed Tomogra phy 06/01/2024 4:11 PM CDT Impressions 06/03/2024 9:55 AM CDT IMPRESSION: 1. No lymphadenopathy. 2. Partially visualized abdominal aortic aneurysm. Narrative 06/03/2024 9:55 AM CDT DICTATING PHYSICIAN: Bhanu Jonas M.D. EXAM DATE: 06/01/2024 4:11 PM EXAM: CT CHEST W/O CONTRAST COMPARISON: 06/28/[address] INDICATION: Lymphadenopathy. PROCEDURE: Nonenhanced CT images of the chest. 1.25 mm lung windows. Dose reduction technique(s) utilized. Radiation dose reduction techniques were employed. CTDIvol: 4.3 mGy. DLP: 170 mGy-cm. FINDINGS: Lung and airways: No abnormality identified. Thyroid: Unremarkable thyroid. Esophagus: Unremarkable. Aorta and vessels: Normal caliber. Normal anatomic configuration of the arch vessels. Scattered wall calcifications. Heart: Normal size. No pericardial effusion. Coronary artery calcification. Pulmonary arteries: Normal caliber. Lymphatics: Stable small prominent lymph nodes. No lymphadenopathy. Pleura: No effusion or thickening. Chest wall and axilla: Unremarkable. Upper Abdomen: Cholecystectomy clips. Partially visualized 4.1 x 3.5 cm abdominal aortic aneurysm. Bones: No destructive lesions. Procedure Note Bhanu Jonas MD - 06/03/2024 DICTATING PHYSICIAN: Bhaun Jonas M.D. EXAM DATE: 06/01/2024 4:11 PM EXAM: CT CHEST W/O CONTRAST COMPARISON: 06/28/[address] INDICATION: Lymphadenopathy. PROCEDURE: Nonenhanced CT images of the chest. 1.25 mm lung windows. Dosereduction technique(s) utilized. Radiation dose reduction techniques wereemployed. CTDIvol: 4.3 mGy. DLP: 170 mGy-cm. FINDINGS: Lung and airways: No abnormality identified. Thyroid: Unremarkable thyroid. Esophagus: Unremarkable. Aorta and vessels: Normal caliber. Normal anatomic configuration of thearch vessels. Scattered wall calcifications. Heart: Normal size. No pericardial effusion. Coronary arterycalcification. Pulmonary arteries: Normal caliber. Lymphatics: Stable small prominent lymph nodes. No lymphadenopathy. Pleura: No effusion or thickening. Chest wall and axilla: Unremarkable. Upper Abdomen: Cholecystectomy clips. Partially visualized 4.1 x 3.5 cmabdominal aortic aneurysm. Bones: No destructive lesions. IMPRESSION: 1. No lymphadenopathy. 2. Partially visualized abdominal aortic aneurysm. Mikayla Osorio STAIN APPLICATOR, NEFTALI IMG CT ORDERABLE S Final Result * (ABNORMAL) HEMOGLOBIN A1C W/ ESTIMATED GLUCOSE (05/24/2024 8:29 AM CDT) HGB-A1C 6.4(H) 4.0 - 6.0 % 05/24/2024 4:40 PM CDT [facility] Est Average Glucose 137.0 mg/dL 05/24/2024 4:40 PM CDT [facility] Blood Venipuncture / Unknown 05/24/2024 8:29 AM CDT 05/24/2024 8:29 AM CDT Narrative [facility] - 05/24/2024 4:40 PM CDT Specimens containing greater than 5% of Hemoglobin F may result in lower than expected % HbA1c results. Senia Multani STAIN APPLICATOR, CAPACITY MANAGEMENT SPECIALIST CHEMISTRY ORDERAB LES Final Result [facility] [address] [place] [address], [place] * (ABNORMAL) UR MICROALBUMIN/CREATININE RATIO RANDOM (05/24/2024 8:29 AM CDT) Pathologist [facility] RAN UR MICROALBUMIN 6.00 mg/dL 05/24/2024 4:22 PM CDT [facility] Comment:No reference range h as been established. Consider Clinical Correlation. CREATININE URINE 71.6 mg/dL 05/25/19 25 4:22 PM CDT [facility] Comment:No reference range h as been established. Consider Clinical Correlation. ALB/CREAT RATIO 84(H) 0 - 30 mg/g CRE 05/24/2024 4:22 PM CDT [facility] Urine Non-Phlebotomy Collection / Unknown 05/24/2024 8:29 AM CDT 05/24/2024 8:29 AM CDT Senia Multani APRN, CNP URINE ORDERABLES Final Result [facility] [address] [place] [address], [place] * HM DILATED EYE EXAM (04/13/2024 12:00 AM [employer]) 04/13/2024 us Provider Scan PROCEDURE/MINOR SURGICAL ORDERAB LES Final Result SCAN * HEPATITIS C ANTIBODY (12/05/2023 9:09 AM CDT) Pathologist [facility] hepatitis C antibody 0.07 <1 S/CO 12/05/2023 8:35 PM CDT [facility] Comment: Signal/Cutoff ratio < 0.79 is Nondetected Signal/Cutoff ratio 0.80-0.99 is Grayzone Signal/Cutoff ratio > 0.99 is Detected Supplemental assays are recommended if signal/cutoff ratio is >/=1.00. Signal/cutoff ratio result >/= 5.00 is 97% predictive of positivity for recombinant immunoblot assay (RIBA) and will be reported to the [place] Department of Public [facility] as required. Blood Venipuncture / Unknown 12/05/2023 9:09 AM CDT 12/05/2023 9:09 AM CDT us Senia Multani APRN, NEFTALI CHEMISTRY ORDERAB LES Final Result [facility] [address] [place] [address], [place] * YADEIL SCREENING BILATERAL DIGITAL W CAD W TIFFANIE (10/31/2023 11:01 AM CDT) Anatomical Region Laterality Modality breast Bilateral Mammography 10/31/2023 11:0 1 AM CDT Impressions 10/31/2023 12:09 PM CDT IMPRESSION: Stable bilateral mammogram. No mammographic evidence of malignancy in either breast. BI-RAD: BI-RAD 2 - Benign findings. FOLLOW UP: Annual follow-up mammography is recommended unless otherwise clinically indicated in the interval time.. RECOMMENDATION: Monthly self-breast examinations and screening mammograms as per ACS guidelines or as otherwise indicated. The patient was entered into a reminder system for their next mammogram. [employer] wants you to know regarding mammography: Although all palpable abnormalities should be imaged prior to performances of any interventional procedures, lack of radiologic evidence of malignancy should not delay biopsy if a clinically suspicious mass is present. A certain percentage of cancers, probably 10-20% will not be identified by mammography / ultrasound. Certain malignancies are inherently non-visible mammographically / ultrasonically, and an addition, adenosis and dense breast tissue may obscure an underlying neoplasm. Monthly self breast examination and annual clinical examination should be performed in conjunction with mammography. Thank you for allowing us to participate in the care of your patient. Narrative 10/31/2023 12:09 PM CDT PROCEDURE: [facility] SCREENING BILATERAL DIGITAL W CAD W TIFFANIE CLINICAL INFORMATION: 72 years, screening mammogram. Family history of breast cancer, mother. Squamous cell carcinoma. control pill usage in the past. No previous breast biopsy in the past COMPARISON: May 10, 2022. SIDE: Bilateral. TECHNIQUE: Mammogram digital plain and tomosynthesis images done. This mammogram was interpreted with the aid of CAD. BREAST DENSITY: The breast density for this patient is Category B - Scattered areas of fibroglandular density. FINDINGS: Moderately fatty breasts bilaterally with scattered fibroglandular densities on both sides. Nonspecific lymph nodes in the axilla bilaterally. Some vascular calcifications bilaterally. There is a small nodular density in the left breast in the central portion in the CC view. This is stable compared to prior study. There is no evidence of skin thickening, architectural distortion, or suspicious cluster of microcalcifications. us Ana Pitts STAIN APPLICATOR, CAPACITY MANAGEMENT SPECIALIST IMG MAMMO ORDERABLES Final Result * STOOL, OCCULT BLOOD IMMUNOASSAY (IFOB) (04/09/2023 8:21 AM [employer]) OCCULT BLOOD - IFOB Negative Negative 04/09/2023 5:29 PM [employer] [facility] Other STOOL SPECIMEN / Unknown Non-Phlebotomy Collection / Unknown 04/09/2023 8:21 AM [employer] 04/09/2023 8:21 AM [employer] Senia Multani STAIN APPLICATOR, CAPACITY MANAGEMENT SPECIALIST BODY FLUIDS & STO OLS ORDERABLES Final Result [facility] [address] [place] [address], * COLONOSCOPY (10/03/2019) Raj Patel MD PROCEDURE/MINOR SURGICAL ORDERABLES Edited Result - Final * DEXA SCAN (12/29/2016) Anatomical Region Laterality Modality Other Carlitos Renteria MD [place] - IMAGING Final Result from Last 3 Months or Most Recently Relevant to Health Maintenance Insurance MEDICARE [employer] Care Teams Communications Superintendent Relationship Specialty Start Date End Date Senia Multani APRN, CAPACITY MANAGEMENT SPECIALIST [address] [place] [address] PCP - General Advanced Practice Nurse 06/03/17 Mikayla Osorio APRN, CAPACITY MANAGEMENT SPECIALIST [address], [place] [id number] Nurse Practitioner Pulmonary Disease 11/06/20
--- OUTSIDE RECORDS SUMMARY | 2024-12-20 13:04 | XMS_ITS | Encounter Summary ---
Author Organization [facility] Address [address] [place] [address] Phone Care Team Providers Care Boat Fueler Name Role Phone Senia Multani APRN Primary Care Provider Reason for Visit * Reason Onset Date Comments Appointment Request 04/19/2023 Encounter Details Date Type Department Care Team (Late st Contact Info) Description 04/19/2023 Telephone [facility] Main [address] [place] [phone] Ana Pitts APRN Appointment Request Social History Tobacco Use Types Packs/Day Years [...] on file Legal Sex Female 8:07 AM SHEET METAL HELPER Gender Identity Not on file Sexual Orientation Not on file 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 T METAL HELPER * Telephone Encounter - Yulissa Mccarthy - 04/19/2023 10:18 AM CST Patient name: Cinthia Vela Exam ordered: pelvic pain Detailed reason for exam: full pelvic sono Provider the patient is seeing for follow-up: Ana Pitts APN Timeframe for ultrasound: Next available Please schedule f/u appt. With Ana. T METAL HELPER documented in this encounter Plan of Treatment Upcoming Encounters Date Type Department Care Team (Late st Contact Info) Description 03/21/2025 9:15 AM SHEET METAL HELPER Office Visit [address] [address] Arely Clemens, YUNIER [address] [place], [place] [phone] documented as of this encounter Visit Diagnoses Not on filedocumented in this encounter Care Teams Boat Fueler Relationship Specialty Start Date End Date Senia Multani APRN PCP - General Family Medicine 01/20/17 documented as of this encounter
--- OUTSIDE RECORDS SUMMARY | 2024-12-20 13:04 | XMS_ITS | Encounter Summary ---
Author Organization [facility] Address [address] [place] [address] Phone Care Team Providers Care Experimental Flight Test Mechanic Name Role Phone Senia Multani APRN Primary Care Provider Reason for Visit * Reason Onset Date Comments Missed Appointment 11/29/2024 Encounter Details Date Type Department Care Team ([facility] st Contact Info) Description 11/29/2024 Telephone [facility] Vein and Vascular Main [address] [place] [address] Byron Villarreal APRN [address] [place] [address] Missed Appointment Social History Tobacco Use Types Packs/Day Years [...] on file Legal Sex Female 8:07 AM NONPROFIT FUNDRAISER Gender Identity Not on file Sexual Orientation Not on file Occupation Industry Job Start Date Job End Date [employer] Not on file Not on file N ot on file documented as of this encounter Miscellaneous Notes * Telephone Encounter - Chelsie Bergeron - 11/29/2024 9:25 AM CDT Patient Cancelled their Testing and Office Visit on [ 12/03 & 12/04 ]. Will reach out to patient to attempt to reschedule. Please assist patient in rescheduling if they call prior. Patient is having surgery at on 12/03 so had to cancel regular follow up appt. Pt to call back and reschedule when able. documented in this encounter Plan of Treatment Upcoming Encounters Date Type Department Care Team (Late st Contact Info) Description 03/21/2025 9:15 AM NONPROFIT FUNDRAISER Office Visit [facility] Dermatology [facility] [address] [place] [address] Arely Clemens, PA [address] [place], [place] [address] documented as of this encounter Visit Diagnoses Not on filedocumented in this encounter Care Teams Experimental Flight Test Mechanic Relationship Specialty Start Date End Date Senia Multani APRN PCP - General Family Medicine 01/20/17 documented as of this encounter
--- OUTSIDE RECORDS SUMMARY | 2024-12-20 13:04 | XMS_ITS | Encounter Summary ---
Author Organization [facility] Address [address] [place] [address] Phone Care Team Providers Care Manager Delivery Name Role Phone Senia Multani APRN, FURNACE MECHANIC Primary Care Pro vider Carlitos Renteria MD Unavailable Unavailable High, Mikayla Eddy APRN, CNP Unavailable Encounter Details Date Type Department Care Team (Late st Contact Info) Description 09/03/2020 Lab [facility]quisition [facility] [address] [place] [address] Arely Clemens, PAC [address] [place] [address] Neoplasm of unspecified behavior of bone, soft tissue, and skin Social History Tobacco Use Types Packs/Day Years Used Date Smoking Tobacco: Every Day Cigarettes Smokeless Tobacco: Never Comments:UNDER 10 A DAY 08/28 Alcohol Use Standard Drinks/Week Comments Yes 0 (1 standard drink = 0.6 oz pur e alcohol) rarely PHQ-2 Answer Date Recorded Total Score - Questions 1-9 1 08/14 Education Answer Date Recorded What is the highest level of school you have completed or the highest degree you have received? Associate degree: occupational, technical, or vocational program 05/27/2020 Sexually Active Control Partners Comments Yes Post-menopausal Comments No Sex and Gender Information Value Date Recorded Sex Assigned at Not on file Legal Sex Female 8:15 PM MULTI TOWNSHIP ASSESSOR Gender Identity Not on file Sexual Orientation Not on file COVID-19 Exposure Response Date Recorded In the last month, have you been in contact with someone who was confirmed or suspected to have Coronavirus / COVID-19? No / Unsure 08/27/2020 10:28 AM CDT documented as of this encounter Plan of Treatment Upcoming Encounters Date Type Department Care Team (Late st Contact Info) Description 01/02/2025 7:20 AM MULTI TOWNSHIP ASSESSOR Office Visit [facility] - Primary Care [facility] [address] [place] [address] Senia Multani, BEEF CATTLE GRAZIER, FURNACE MECHANIC [address] [place] [address] documented as of this encounter Procedures Procedure Name Priority Date/Time Associated Diagnosis Comments PATHOLOGY SURGICAL Routine 09/03/2020 11 :24 AM CDT Neoplasm of unspecified behavior of bone, soft tissue, and skin documented in this encounter Results * PATHOLOGY SURGICAL (09/03/2020 11:24 AM CDT) Case Report Surgical Pathology Report Case: [id number] Authorizing Provider: Arely Clemens PAC Collected: 09/03/2020 11:24 AM Ordering Location: [facility]: 09/04/2020 06:58 AM [facility] Laboratory Services Pathologist: Sharri Ervin MD Specimen: Skin, LEFT DISTAL DORSAL FOREARM 09/11/2020 11:15 PM CDT [facility] FINAL DIAGNOSIS SKIN LESION, LEFT DISTAL DORSAL FOREARM, SKIN BIOPSY: - SQUAMOUS CELL CARCINOMA IN SITU, 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 Complete but conservative excision of the lesion as clinically indicated is suggested. Abnormal for scanning. 09/11/2020 11:[address] [facility] Clinical Information Rule out carcinoma 09/11/2020 11:[address] [facility] Gross Description A. LEFT DISTAL DORSAL FOREARM The specimen is labeled Cinthia Vela, left distal dorsal forearm. The name and the [facility] number on the requisition and the specimen container match. Received in formalin is an unoriented shave fragment of villalobos white skin measuring 0.5 x 0.4 x 0.1 cm. The external margins are inked with blue ink. The tissue is bisected and submitted between sponges in cassette A1. CE/1/Lx3/TC/star 09/11/2020 11:[address] [facility] Other SPECIMEN FROM SKIN / Unknown 09/03/2020 11:24 AM CDT 09/04/2020 6:58 AM CDT us Arely Clemens PAC PATHOLOGY/CYTOLOGY ORDERABLES Fi nal Result [facility] [address] [place] [address], documented in this encounter Visit Diagnoses Diagnosis Neoplasm of unspecified behavior of bone, soft tissue, and skin documented in this encounter Additional Health Concerns Infection Onset Date Last Indicated Resolved Time COVID - 19 08/03/2021 08/03/2021 08/04/2021 12:0 9 PM CDT COVID - 19 Confirmed 08/03/2021 08/03/2021 022 12:16 AM CDT C. difficile Rule-Out 02/04/2024 02/04/20242023 8:25 AM MULTI TOWNSHIP ASSESSOR C. difficile 02/04/2024 02/04/2024 05/04/2024 12:1 6 AM CDT Respiratory Rule-Out 02/13/2024 02/13/2024 024 1:58 PM MULTI TOWNSHIP ASSESSOR Assessment Noted Time PHQ-9 Depression Total Score: 1 08/29/19 10:29 AM CDT documented as of this encounter Care Teams Manager Delivery Relationship Specialty Start Date End Date Senia Multani APRN, FURNACE MECHANIC [address] [place] [address] PCP - General Advanced Practice Nurse 06/03/17 Carlitos Renteria MD [address] [place] [address] Consulting Physician Obstetrics & Gynecology 04/03/19 12/14/21 Mikayla Osorio APRN, FURNACE MECHANIC [address] [place] [address] Nurse Practitioner Pulmonary Disease 11/06/20 documented as of this encounter
--- OUTSIDE RECORDS SUMMARY | 2024-12-20 13:04 | XMS_ITS | Encounter Summary ---
Author Organization [facility] Address [address] [place] [address] Phone Care Team Providers Care Customer Assistant Name Role Phone Senia Multani APRN, COMMERCIAL ESCROW OFFICER Primary Care Pro vider Carlitos Renteria MD Unavailable Unavailable High, Mikayla Eddy APRN, COMMERCIAL ESCROW OFFICER Unavailable Reason for Visit * Reason Comments Medication Refill Encounter Details Date Type Department Care Team (Late st Contact Info) Description 01/07/2020 Refill [facility] [address] [place] [address] Senia Multani APRN, COMMERCIAL ESCROW OFFICER [address] [place], [place] [address] Medication Refill Social History Tobacco Use Types Packs/Day Years Used Date Smoking Tobacco: Every Day Cigarettes Smokeless Tobacco: Never Alcohol Use Standard Drinks/Week Comments Yes 0 (1 standard drink = 0.6 oz pur e alcohol) rarely PHQ-2 Answer Date Recorded Total Score - Questions 1-9 0 07/15 Education Answer Date Recorded What is the highest level of school you have completed or the highest degree you have received? Some college, no degree 12/17/2019 Comments No Sex and Gender Information Value Date Recorded Sex Assigned at Not on file Legal Sex Female 8:15 PM MORTGAGE UNDERWRITER Gender Identity Not on file Sexual Orientation Not on file COVID-19 Exposure Response Date Recorded In the last month, have you been in contact with someone who was confirmed or suspected to have Coronavirus / COVID-19? No / Unsure 12/24/2019 9:25 AM MORTGAGE UNDERWRITER documented as of this encounter Miscellaneous Notes * Telephone Encounter - Martina Moreno - 01/07/2020 11:00 AM CST Requested Prescriptions Pending Prescriptions Disp Refills ??? metoprolol Succinate (TOPROL-XL) 50 MG TABLET SR 24 HR [Pharmacy Med Name: METOPROL SUC 50MG ER] 90 Tab 1 Sig: Take 1 Tab by mouth nightly. See telephone encounter dated 12/12/19. Tera:12/17/19 Last filled:04/30/19 90 tab 1 refill Nov: 02/27/20 BP Readings from Last 3 Encounters: 12/16/19 131/72 11/30/19 146/84 07/27/19 148/90 Lab Results Component Value Date SODIUM 138 12/20/2019 POTASSIUM 4.0 12/20/2019 CHLORIDE 101 12/20/2019 CO2VEN 28 12/20/2019 ANIONGAP 9.0 12/20/2019 GLUCOSE 198 (H) 12/20/2019 BUN 23 12/20/2019 CREATININE 0.78 12/20/2019 BCRATIO8 29 (H) 12/20/2019 TOTALPROTEIN 6.8 12/16/2019 ALBUMIN 4.5 12/16/2019 CALCIUM 9.7 12/20/2019 TBIL 0.3 12/16/2019 SGOTAST 13 12/16/2019 SGPTALT 13 12/16/2019 ALKALINEPHO 88 12/16/2019 GFRNA >60 12/20/2019 GFRA >60 12/20/2019 GAGE UNDERWRITER * Telephone Encounter - Martina Moreno - 01/07/2020 10:15 AM CST [employer] message sent to patient to verify if she is taking Metoprolol Succinate or Tartrate. GAGE UNDERWRITER documented in this encounter Plan of Treatment Upcoming Encounters Date Type Department Care Team (Late st Contact Info) Description 01/02/2025 7:20 AM MORTGAGE UNDERWRITER Office Visit [facility] [address] [place] [address] Senia Multani APRN, COMMERCIAL ESCROW OFFICER [address], [place] [address] documented as of this encounter Visit Diagnoses Not on filedocumented in this encounter Additional Health Concerns Infection Onset Date Last Indicated Resolved Time COVID - 19 06/30/2020 06/30/2020 07/20/2020 12:1 6 AM CDT COVID - 19 08/03/2021 08/03/2021 08/04/2021 12:0 9 PM CDT COVID - 19 Confirmed 08/03/2021 08/03/2021 022 12:16 AM CDT C. difficile Rule-Out 02/04/2024 02/04/20242023 8:25 AM MORTGAGE UNDERWRITER C. difficile 02/04/2024 02/04/2024 05/04/2024 12:1 6 AM CDT Respiratory Rule-Out 02/13/2024 02/13/2024 024 1:58 PM MORTGAGE UNDERWRITER Assessment Noted Time PHQ-9 Depression Total Score: 0 07/27/19 8:35 AM CDT documented as of this encounter Care Teams Customer Assistant Relationship Specialty Start Date End Date Senia Multani APRN, COMMERCIAL ESCROW OFFICER [address] [place] [address] PCP - General Advanced Practice Nurse 06/03/17 Carlitos Renteria MD [address] [place] [address] Consulting Physician Obstetrics & Gynecology 04/03/19 12/14/21 Mikayla Osorio APRN, COMMERCIAL ESCROW OFFICER [address] [place] [address] Nurse Practitioner Pulmonary Disease 11/06/20 documented as of this encounter
--- OUTSIDE RECORDS SUMMARY | 2024-12-20 13:04 | XMS_ITS | Encounter Summary ---
Author Organization [facility] Address [address] [place] [address] Phone Care Team Providers Care Label Machine Operator Name Role Phone Senia Multani APRN Primary Care Provider Reason for Referral * - Complete Specialty Diagnoses / Procedures Referred By Ann alvarez Referred To Contact Cardiology Diagnoses Chest pain, precordial Procedures ECHOCARDIOGRAM-ADULT VA ECHO HEART XTHORACIC,COMPLETE W DOPPLER Natasha Grady MD [facility] Cardiac Diagnostics Main [address] [place] [address] Phone: tel: fax: Referral ID Status Reason Start Date Expiration Date V isits Requested Visits Authorized [id number] Complete 10/21/2018 1 1 Encounter Details Date Type Department Care Team (Late st Contact Info) Description 10/21/2018 Transcribe Orders [facility] Cardiology Main [address] [place] [address] Natasha Grady MD Chest pain, precordial Social History Tobacco Use Types Packs/Day Years Used Date Smoking Tobacco: Never Assessed Comments No Sex and Gender Information Value Date Recorded Sex Assigned at Not on file Legal Sex Female 8:07 AM DESIGN ENGINEER Gender Identity Not on file Sexual Orientation Not on file documented as of this encounter Plan of Treatment Upcoming Encounters Date Type Department Care Team (Late st Contact Info) Description 03/21/2025 9:15 AM DESIGN ENGINEER Office Visit [facility] Dermatology [facility] [address] [place] [address] Arely Clemens, PA [address] [place], [place] [address] documented as of this encounter Results * [facility] TRANSTHORACIC ECHO COMPLETE WO CONTRAST (08/07/2019 10:48 AM CDT) LVEF - ECHO 55 - 60% [facility] Anatomical Region Laterality Modality Ultrasound 08/07/2019 10:1 1 AM CDT Impressions 08/08/2019 2:51 PM CDT FINAL REPORT 08/07/2019 Patient Name: CINTHIA VELA [facility] Num: [id number] Ordering Physician: NATASHA GRADY History: AAA HTN HCL SMOKER Patient Age [age] years old Order Number [id number] Patient Height 62 in Patient Weight 152.2 lbs Heart Rate 59 bpm BSA 1.7 m2 Procedure: Complete 2D echo with spectral/color Doppler 54609 Reason for Study: Chest Pain (786.51) Interpretation Summary: There is mild concentric left ventricular hypertrophy. The left ventricular wall motion is normal. Left ventricular systolic function is normal. Ejection Fraction = 55 - 60% Stage 1 diastolic dysfunction of the left ventricle (Impaired Relaxation). There is trace mitral regurgitation. There is mild tricuspid regurgitation. No significant change from 09/19/16. Narrative 08/08/2019 2:51 PM CDT Echo Findings Aortic Valve: The aortic valve is trileaflet. The aortic valve is normal in structure and function. The aortic root is normal size. No aortic stenosis. There is no aortic regurgitation. Mitral Valve: The mitral valve is normal in structure and function. There is no mitral valve stenosis. There is trace mitral regurgitation. Tricuspid Valve: The tricuspid valve is normal in structure and function. There is mild tricuspid regurgitation. Right ventricular systolic pressure is normal. Pulmonic Valve: The pulmonic valve is not well visualized. There is no pulmonary regurgitation. Right Ventricle: The right ventricle is normal size. There is normal right ventricular contraction. Right Atrium: Right atrial size is normal. Left Atrium: The left atrial size is normal. SHANNON 22.42ml/m2 Left Ventricle: The left ventricle is normal in size. There is mild concentric left ventricular hypertrophy. Left ventricular systolic function is normal. Ejection Fraction = 55 - 60% The left ventricular wall motion is normal. Pericardium: No pericardial effusion. Diastology: E / E' = 12.67 Stage 1 diastolic dysfunction of the left ventricle (Impaired Relaxation). Miscellaneous Findings: IVC is normal size and shows normal respiratory variation. Tech Comments: Study was difficult due to lung interference . Echo Measurements MMode 2D Measurements and Calculations: IVSd 1.3 cm LVIDd 3.8 cm LVIDs 3 cm LVPWd 1.2 cm IVS/LVPW 1 FS 21.8 % EDV(Teich) 62.5 ml ESV(Teich) 34.5 ml EF(Teich) 44.8 % EF (est.) 54.5 % EDV(cubed) 55.5 ml ESV(cubed) 26.5 ml EF(cubed) 52.1 % LV mass(C)d 161.4 grams LV mass(C)dI 94.8 grams/m2 SV(Teich) 28 ml SI(Teich) 16.4 ml/m2 SV(cubed) 28.9 ml SI(cubed) 17 ml/m2 Ao root diam 2.9 cm Ao root area 6.8 cm2 LVOT diam 2 cm LVOT area 3.2 cm2 EDV(MOD-sp4) 52.9 ml ESV(MOD-sp4) 21.1 ml EF(MOD-sp4) 60 % EDV(MOD-sp2) 67.9 ml ESV(MOD-sp2) 32.8 ml EF(MOD-sp2) 51.6 % SV(MOD-sp4) 31.8 ml SI(MOD-sp4) 18.7 ml/m2 SV(MOD-sp2) 35 ml SI(MOD-sp2) 20.6 ml/m2 Doppler Measurements and Calculations: MV E max mars 75.7 cm/sec MV A max mars 103 cm/sec MV E/A 0.74 MV dec slope 302.1 cm/sec2 MV dec time 0.25 sec Ao V2 max 115.9 cm/sec Ao max PG 5.4 mmHg Ao max PG (full) 1.6 mmHg MARIA C(V,A) 2.7 cm2 MARIA C(V,D) 2.7 cm2 LV V1 max PG 3.8 mmHg LV V1 max 96.9 cm/sec TR max mars 250.6 cm/sec Interpreting Physician: Natasha Grady M.D. electronically signed on 2019-08-08 14:51:45.853 Optic Fibre Drawer: Carol Verde, Procedure Note Natasha Grady MD - 08/08/2019 Echo Findings Aortic Valve: The aortic valve is trileaflet. The aortic valve is normal in structure and function. The aortic root is normal size. No aortic stenosis. There is no aortic regurgitation. Mitral Valve: The mitral valve is normal in structure and function. There is no mitral valve stenosis. There is trace mitral regurgitation. Tricuspid Valve: The tricuspid valve is normal in structure and function. There is mild tricuspid regurgitation. Right ventricular systolic pressure is normal. Pulmonic Valve: The pulmonic valve is not well visualized. There is no pulmonary regurgitation. Right Ventricle: The right ventricle is normal size. There is normal right ventricular contraction. Right Atrium: Right atrial size is normal. Left Atrium: The left atrial size is normal. SHANNON 22.42ml/m2 Left Ventricle: The left ventricle is normal in size. There is mild concentric left ventricular hypertrophy. Left ventricular systolic function is normal. Ejection Fraction = 55 - 60% The left ventricular wall motion is normal. Pericardium: No pericardial effusion. Diastology: E / E' = 12.67 Stage 1 diastolic dysfunction of the left ventricle (Impaired Relaxation). Miscellaneous Findings: IVC is normal size and shows normal respiratory variation. Tech Comments: Study was difficult due to lung interference . Echo Measurements MMode 2D Measurements and Calculations: IVSd 1.3 cm LVIDd 3.8 cm LVIDs 3 cm LVPWd 1.2 cm IVS/LVPW 1 FS 21.8 % EDV(Teich) 62.5 ml ESV(Teich) 34.5 ml EF(Teich) 44.8 % EF (est.) 54.5 % EDV(cubed) 55.5 ml ESV(cubed) 26.5 ml EF(cubed) 52.1 % LV mass(C)d 161.4 grams LV mass(C)dI 94.8 grams/m2 SV(Teich) 28 ml SI(Teich) 16.4 ml/m2 SV(cubed) 28.9 ml SI(cubed) 17 ml/m2 Ao root diam 2.9 cm Ao root area 6.8 cm2 LVOT diam 2 cm LVOT area 3.2 cm2 EDV(MOD-sp4) 52.9 ml ESV(MOD-sp4) 21.1 ml EF(MOD-sp4) 60 % EDV(MOD-sp2) 67.9 ml ESV(MOD-sp2) 32.8 ml EF(MOD-sp2) 51.6 % SV(MOD-sp4) 31.8 ml SI(MOD-sp4) 18.7 ml/m2 SV(MOD-sp2) 35 ml SI(MOD-sp2) 20.6 ml/m2 Doppler Measurements and Calculations: MV E max mars 75.7 cm/sec MV A max mars 103 cm/sec MV E/A 0.74 MV dec slope 302.1 cm/sec2 MV dec time 0.25 sec Ao V2 max 115.9 cm/sec Ao max PG 5.4 mmHg Ao max PG (full) 1.6 mmHg MARIA C(V,A) 2.7 cm2 MARIA C(V,D) 2.7 cm2 LV V1 max PG 3.8 mmHg LV V1 max 96.9 cm/sec TR max mars 250.6 cm/sec Interpreting Physician: Natasha Grady M.D. electronically signed [id number] 14:51:45.853 Optic Fibre Drawer: JESSIE Senior FINAL [id number] Patient Name: CINTHIA VELA [facility] Num: [id number] Ordering Physician: NATASHA GRADY History: AAA HTN HCL SMOKER Patient Age [age] years old Order Number [id number] Patient Height 62 in Patient Weight 152.2 lbs Heart Rate 59 bpm BSA 1.7 m2 Procedure: Complete 2D echo with spectral/color Doppler 93343 Reason for Study: Chest Pain (786.51) Interpretation Summary: There is mild concentric left ventricular hypertrophy. The left ventricular wall motion is normal. Left ventricular systolic function is normal. Ejection Fraction = 55 - 60% Stage 1 diastolic dysfunction of the left ventricle (Impaired Relaxation). There is trace mitral regurgitation. There is mild tricuspid regurgitation. No significant change from 09/19/16. us Natasha Grady MD [facility] Final Result documented in this encounter Visit Diagnoses Diagnosis Chest pain, precordial Precordial pain Chest pain, precordial Precordial pain documented in this encounter Care Teams Label Machine Operator Relationship Specialty Start Date End Date Senia Multani, EVELYN PCP - General Family Medicine 01/20/17 documented as of this encounter
--- OUTSIDE RECORDS SUMMARY | 2024-12-20 13:04 | XMS_ITS | Encounter Summary ---
Author Organization [facility] Address [address] [place] [address] Phone Care Team Providers Care Mimeograph Operator Name Role Phone Senia Multani APRN, NEFTALI Primary Care Pro vider Mikayla Osorio APRN, COOKER SYRUP Unavailable Reason for Visit * Reason Comments Medication Refill Encounter Details Date Type Department Care Team (Late st Contact Info) Description 10/09/2024 Refill [facility] - Primary Care [facility] [address] [place] [address] Senia Multani APRN, COOKER SYRUP [address] [place] [address] Medication Refill Social History Tobacco Use Types Packs/Day Years Used Date Smoking Tobacco: Every Day Cigarettes 0.5 44 Smokeless Tobacco: Never Alcohol Use Standard Drinks/Week Comments Yes 0 (1 standard drink = 0.6 oz pur e alcohol) rarely [facility] Utilities Answer Date Recorded In the past 12 months has e electric, gas, oil, or water company threatened to shut off services in your home? No 05/23/2024 Social Connection and Isolation Panel Answer Date Recorded In a typical week, how many times do you talk on the phone with family, friends, or neighbors? Patient declined 05/23/2024 Frequency of Social Gatherings with Friends and Family Not on file 05/23/2024 How often do you attend shinto or christianity serv ices? Patient declined 05/23/2024 Do you belong to any clubs o r organizations such as shinto groups, unions, fraternal or athletic groups, or [...] Recorded Total Score - Questions 1-9 0 0 02/2023 [facility] of Occupat ional Health - Occupational [...] place to sleep or slept in a longterm (including now)? No 04/06/2023 Housing Stability Vital Sign Answer Allen e Recorded In the last 12 months, was t here a time when you were not able to pay the mortgage or rent on time? No 05/23/2024 Number of Times Moved in the Last Year Not on fi le 05/23/2024 At any time in the past 12 m [facility], were you homeless or living in a longterm (including now)? No 05/23/2024 Education Answer Date Recorded What is the highest level of school you have completed or the highest degree you have received? Associate degree: occupational, technical, or vocational program 05/27/2020 Sexually Active Control Partners Comments Yes Post-menopausal Comments No Sex and Gender Information Value Date Recorded Sex Assigned at Not on file Legal Sex Female 8:15 PM CANDY SPREADER Gender Identity Not on file Sexual Orientation Not on file documented as of this encounter Plan of Treatment Upcoming Encounters Date Type Department Care Team (Late st Contact Info) Description 01/02/2025 7:20 AM CANDY SPREADER [facility] [address] [place] [address] Senia Multani, MANOMETER TECHNICIAN, COOKER SYRUP [address] [place] [address] documented as of this encounter Visit Diagnoses Not on filedocumented in this encounter Additional Health Concerns Assessment Noted Time PHQ-9 Depression Total Score: 0 11/01/20 24 8:00 AM CDT documented as of this encounter Care Teams Mimeograph Operator Relationship Specialty Start Date End Date Senia Multani APRN, NEFTALI [address] [place] [address] PCP - General Advanced Practice Nurse 06/03/17 Mikayla Osorio APRN, NEFTALI [address] [place] [address] Nurse Practitioner Pulmonary Disease 11/06/20 documented as of this encounter
--- OUTSIDE RECORDS SUMMARY | 2024-12-20 13:05 | XMS_ITS | Encounter Summary ---
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 Not on file N ot on file documented as of this encounter Plan of Treatment Upcoming Encounters Date Type Department Care Team (Late st Contact Info) Description 03/21/2025 9:15 AM SERVICE MANAGER Office Visit [address] [address] Arely Clemens, PA [address] [place] [address] documented as of this encounter Procedures Procedure Name Priority Date/Time Associated Diagnosis Comments YADIEL SCREENING BREAST BILATERAL W/CAD Routine 10/31/2023 7:54 AM CDT Screening mammogram, encounter for documented in this encounter Results * YADIEL SCREENING BREAST BILATERAL W/CAD (10/31/2023 7:54 AM CDT) Anatomical Region Laterality Modality Breast Bilateral Mammography Ana Pitts VIDEO TECHNICIAN MAMMOGRAPHY Final Res ult documented in this encounter Visit Diagnoses Diagnosis Screening mammogram, encounter for documented in this encounter Care Teams Butcher Chicken And Fish Relationship Specialty Start Date End Date Senia Multani APRN PCP - General Family Medicine 01/20/17 documented as of this encounter
--- OUTSIDE RECORDS SUMMARY | 2024-12-20 13:05 | XMS_ITS | Encounter Summary ---
Author Organization [facility] Address [address] [place] [address] Phone Care Team Providers Care Product Mgr Name Role Phone Senia Multani APRN, NEFTALI Primary Care Pro vider Mikayla Osorio APRN, MEDICAL LABORATORY MANAGER Unavailable Reason for Visit * Reason Comments Medication Refill Encounter Details Date Type Department Care Team (Late st Contact Info) Description 07/04/2023 Refill [facility] - Primary Care [facility] [address] [place] [address] Senia Multani APRN, MEDICAL LABORATORY MANAGER [address] [place] [address] Medication Refill Social History Tobacco Use Types Packs/Day Years Used Date Smoking Tobacco: Every Day Cigarettes 0.5 44 Smokeless Tobacco: Never Alcohol Use Standard Drinks/Week Comments Yes 0 (1 standard drink = 0.6 oz pur e alcohol) rarely [facility] Utilities Answer Date Recorded In the past 12 months has e electric, gas, oil, or water company threatened to shut off services in your home? No 04/06/2023 Social Connection and Isolation Panel Answer Date Recorded In a typical week, how many times do you talk on the phone with family, friends, or neighbors? Three times a week 04/06/2023 How often do you get togethe r with friends or relatives? Twice a week 04/06/2023 How often do you attend chur ch or yazidism services? Patient declined 04/06/2023 Do you belong to any clubs o r organizations such as episcopalian groups, unions, fraternal or athletic groups, or school groups? Patient declined 04/06/2023 How often do you attend meet ings of the clubs or organizations you belong to? Patient declined 04/06/2023 Are you , , di vorced, , never , or living with a partner? 04/06/2023 AUDIT-C Answer Date Recorded Q1: How often do you have a drink containing alc ohol? Monthly or less 04/06/2023 Q2: How many drinks containi ng alcohol do you have on a typical day when you are drinking? 1 or 2 04/06/2023 Q3: How often do you have si x or more drinks on one occasion? Never 04/06/2023 Overall Financial Resource Strain (CARDIA) Answe r Date Recorded How hard is it for you to pa y for the very basics like food, housing, medical care, and heating? Not hard at all 04/06/2023 PHQ-2 Answer Date Recorded Total Score - Questions 1-9 0 03/18 [facility] of Occupat ional Health - Occupational Stress Questionnaire Answer Date Recorded Do you feel stress - tense, restless, nervous, or anxious, or unable to sleep at night because your mind is troubled all the time - these days? To some extent 04/06/2023 Exercise Vital Sign Answer Date Recorde d On average, how many days pe r week do you engage in moderate to strenuous exercise (like a brisk walk)? 2 days 04/06/2023 On average, how many minutes do you engage in exercise at this level? 20 min 04/06/2023 Hunger Vital Sign Answer Date Recorded Within the past 12 months, y ou worried that your food would run out before you got the money to buy more. Never true 04/06/19 24 Within the past 12 months, t he food you bought just didn't last and you didn't have money to get more. Never true 04/06/2023 PRAPARE - Transportation Answer Date Re corded In the past 12 months, has l ack of transportation kept you from medical appointments or from getting medications? No 03/18 In the past 12 months, has l ack of transportation kept you from meetings, work, or from getting things needed for daily living? No 04/06/2023 Housing Stability Vital Sign Answer [...] place to sleep or slept in a penitentiary (including now)? No 04/06/2023 Education Answer Date Recorded What is the highest level of school you have completed or the highest degree you have received? Associate degree: occupational, technical, or vocational program 05/27/2020 Sexually Active Control Partners Comments Yes Post-menopausal Comments No Sex and Gender Information Value Date Recorded Sex Assigned at Not on file Legal Sex Female 8:15 PM SODA ROOM OPERATOR Gender Identity Not on file Sexual Orientation Not on file documented as of this encounter Plan of Treatment Upcoming Encounters Date Type Department Care Team (Late st Contact Info) Description 01/02/2025 7:20 AM SODA ROOM OPERATOR [facility] Visit [facility] [address] [place] [address] Senia Multani, MANAGER ELECTRICAL, MEDICAL LABORATORY MANAGER [address] [place] [address] documented as of this encounter Visit Diagnoses Not on filedocumented in this encounter Additional Health Concerns Infection Onset Date Last Indicated Resolved Time C. difficile Rule-Out 02/04/2024 02/04/20242023 8:25 AM SODA ROOM OPERATOR C. difficile 02/04/2024 02/04/2024 05/04/2024 12:1 6 AM CDT Respiratory Rule-Out 02/13/2024 02/13/2024 024 1:58 PM SODA ROOM OPERATOR Assessment Noted Time PHQ-9 Depression Total Score: 0 04/07/19 24 7:55 AM SODA ROOM OPERATOR documented as of this encounter Care Teams Product Mgr Relationship Specialty Start Date End Date Senia Multani APRN, MEDICAL LABORATORY MANAGER [address] [place] [address] PCP - General Advanced Practice Nurse 06/03/17 Mikayla Osorio APRN, MEDICAL LABORATORY MANAGER [address] [place] [address] Nurse Practitioner Pulmonary Disease 11/06/20 documented as of this encounter
--- OUTSIDE RECORDS SUMMARY | 2024-12-20 13:05 | XMS_ITS | Encounter Summary ---
Author Organization [facility] Address [address] [place] [address] Phone Care Team Providers Care Edi Consultant Name Role Phone Senia Multani APRN Primary Care Provider Encounter Details Date Type Department Care Team (Late st Contact Info) Description 02/10/[address] 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 I got answering machine on both. If she feels well on current medications and her blood pressure is under control then just continuecurrent medication she is now taking without any change. She is diabetic and her target blood pressure should be 130/80 mm Hg. If her blood pressure is still running higher than target then she should call me back. CAL ASSISTANT OB GYN * Telephone Encounter - Jen Varela LPN - 02/10/2021 4:13 PM CST This nurse contacted the patient back. She states that when she initiated Coreg she noticed aches of both legs with feet tingling. She states with the addition of Norvasc she has intermittent nausea accompanied with fatigue and nightmares. She reports her blood pressures have been good. She reports she tried to stop the Norvasc and felt a lot better. She states she had energy, which she did not have. She reports she is currently taking: Olmesartan 40mg QHS Coreg 6.25mg BID (she cut the dose in half herself) Norvasc 2.5mg QD AM CAL ASSISTANT OB GYN * Telephone Encounter - Jessica Blanca MOA - 02/10/2021 1:10 PM CST Pt called back. Nurse was busy at the moment. Informed pt that the nurse would call back CAL ASSISTANT OB GYN * Telephone Encounter - Jen Varela LPN - 02/10/2021 12:33 PM CST Attempted to reach patient by telephone to further discuss symptoms. Left message for patient to return call. CAL ASSISTANT OB GYN * Telephone Encounter - Jen Varela LPN - 02/10/2021 11:32 AM CST ----- Message from Cinthia Vela sent at 02/08/2021 8:39 PM MEDICAL ASSISTANT OB GYN ----- Regarding: Side effects of Norvasc and/or Coreg I really need to adjust medications. I have had a lot of concerning symptoms since changing to Coreg in Oct and worse getting new symptoms since being on Norvasc. It affects my daily life. Vomiting,weakness, aching, heavy legs, tingling feet and more. CAL ASSISTANT OB GYN documented in this encounter Plan of Treatment Upcoming Encounters Date Type Department Care Team (Late st Contact Info) Description 03/21/2025 9:15 AM MEDICAL ASSISTANT OB GYN Office Visit [facility] Dermatology [address] [address] Arely Clemens, YUNIER [address] [place] [address] documented as of this encounter Visit Diagnoses Not on filedocumented in this encounter Care Teams Edi Consultant Relationship Specialty Start Date End Date Senia Multani APRN PCP - General Family Medicine 01/20/17 documented as of this encounter
--- OUTSIDE RECORDS SUMMARY | 2024-12-20 13:05 | XMS_ITS | Encounter Summary ---
Author Organization [facility] Address [address] [place] [address] Phone Care Team Providers Care Saw Repairer Name Role Phone Senia Multani APRN Primary Care Provider Reason for Visit * Reason Onset Date Comments Refill Request 04/22/2022 Encounter Details Date Type Department Care Team (Late st Contact Info) Description 04/22/2022 Refill [facility] Department of Cardiology, [address] [address] Adelfo Voss MD [address] [place] [address] Refill Request Social History Tobacco Use Types Packs/Day [...] on file Legal Sex Female 8:07 AM EMPLOYEE OPERATIONS EXAMINER Gender Identity Not on file Sexual Orientation Not on file 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 She had a comprehensive metabolic [facility] at [facility] on 10[facility]2021at showed normal kidney function and normal potassium. I called her and left a message that I have renewed her olmesartan prescription. OYEE OPERATIONS EXAMINER * Telephone Encounter - Jen Varela LPN - 04/22/2022 2:11 PM CST I routed you a separate encounter about this request. OYEE OPERATIONS EXAMINER documented in this encounter Plan of Treatment Upcoming Encounters Date Type Department Care Team (Late st Contact Info) Description 03/21/2025 9:15 AM EMPLOYEE OPERATIONS EXAMINER Office Visit [address] [address] Arely Clemens, YUNIER [address] [place] [address] documented as of this encounter Visit Diagnoses Diagnosis Essential (primary) hypertension Unspecified essential hypertension documented in this encounter Care Teams Saw Repairer Relationship Specialty Start Date End Date Senia Multani APRN PCP - General Family Medicine 01/20/17 documented as of this encounter
--- OUTSIDE RECORDS SUMMARY | 2024-12-20 13:05 | XMS_ITS | Encounter Summary ---
Author Organization [facility] Address [address] [place] [address] Phone Care Team Providers Care Dye Boarding Machine Operator Name Role Phone Senia Multani APRN Primary Care Provider Reason for Visit * Reason Onset Date Comments Refill Request 02/02/2021 Encounter Details Date Type Department Care Team (Late st Contact Info) Description 02/02/2021 Refill [facility] Cardiology Main [address] [place] [address] Adelfo Voss MD [address] [place] [address] Refill Request Social History Tobacco [...] on file Legal Sex Female 8:07 AM FACILITY SPECIALIST Gender Identity Not on file Sexual Orientation Not on file 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 file N ot on file documented as of this encounter Miscellaneous Notes * Telephone Encounter - Jessica Blanca MOA - 02/02/2021 12:48 PM CSTSummary: Med refill Pharmacy called stating that the pt needs a refill for the following med Carvedilol 12.5 mg x2 tablets daily 60 tablet dispense Pharmacy verified for [facility] [place] LITY SPECIALIST documented in this encounter Plan of Treatment Upcoming Encounters Date Type Department Care Team (Late st Contact Info) Description 03/21/2025 9:15 AM FACILITY SPECIALIST Office Visit [facility] [address] [place] [address] Arely Clemens, PA [address] [place] [address] documented as of this encounter Visit Diagnoses Diagnosis Essential (primary) hypertension Unspecified essential hypertension documented in this encounter Care Teams Dye Boarding Machine Operator Relationship Specialty Start Date End Date Senia Multani APRN PCP - General Family Medicine 01/20/17 documented as of this encounter
--- OUTSIDE RECORDS SUMMARY | 2024-12-20 13:05 | XMS_ITS | Encounter Summary ---
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 She states that her blood pressure has been under control at home with blood pressure readings approximately 124/78 in the morning and at night her blood pressure was sometimes around 105/50. When her blood pressure is low she does not feel well. I have instructed her to discontinue amlodipine 2.5 mg daily. I recommend that she continue olmesartan 40 mg daily and carvedilol 6.25mg twice a day. TIC FINISHER documented in this encounter Plan of Treatment Upcoming Encounters Date Type Department Care Team (Late st Contact Info) Description 03/21/2025 9:15 AM PLASTIC FINISHER Office Visit [address] [address] Arely Clemens, PA [address] [place] [address] documented as of this encounter Visit Diagnoses Diagnosis Essential (primary) hypertension Unspecified essential hypertension documented in this encounter Care Teams Program Support Assistant Relationship Specialty Start Date End Date Senia Multani APRN PCP - General Family Medicine 01/20/17 documented as of this encounter
--- OUTSIDE RECORDS SUMMARY | 2024-12-20 13:05 | XMS_ITS | Encounter Summary ---
Author Organization [facility] Address [address] [place] [address] Phone Care Team Providers Care Loom Repairer Name Role Phone Senia Multani APRN Primary Care Provider Reason for Referral * - Complete Specialty Diagnoses / Procedures Referred By Ann alvarez Referred To Contact Diagnoses Shortness of breath Disease of cardiovascular system EBCT (electron beam computerized tomography) abnormal Procedures CT CTA CORONARY ARTERIES WITH SCORING CT CTA CORONARY ARTERIES WITH SCORING CHG CT ANGIO HRT CORNRY ART/BYPASS GRFTS CONTRST 3D POST Bess Juarez APRN [address] [place] [address] Phone: tel: fax: [address] [phone] Referral ID Status Reason Start Date Expiration Date V isits Requested Visits Authorized [id number] Complete 11/04/2020 1 1 Encounter Details Date Type Department Care Team (Late st Contact Info) Description 12/02/2020 Transcribe Orders [facility] Cardiology Main [address] [place] [phone] Bess Juarez APRN [address] [place] [address] Shortness of breath; Disease of cardiovascular system; EBCT (electron beam computerized tomography) abnormal Social History Tobacco Use Types Packs/Day Years [...] on file Legal Sex Female 8: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 No / Unsure 12/05/2020 1:19 PM CDT documented as of this encounter Plan of Treatment Upcoming Encounters Date Type Department Care Team (Late st Contact Info) Description 03/21/2025 9:15 AM STEAMBOAT CAPTAIN Office Visit [address] [address] Arely Clemens, PA [address] [place] [address] documented as of this encounter Results * CT CTA CORONARY ARTERIES WITH SCORING (12/03/2020 12:29 PM CDT) Anatomical Region Laterality Modality Computed Tomogra phy 12/03/2020 9:54 AM CDT Narrative 12/04/2020 6:05 PM CDT Accession Exam Completed Date/Time [id number] CT CTA CORONARY ARTERIES WITH SCORING 12/03/2020 12:29 Requesting: BESS JUAREZ CT Angiography of the Coronary Arteries with Calcium Scoring Analysis: COMPARISONS: None INDICATION: Dyspnea on exertion (MONSON) QUALITY OF STUDY:Good CONTRAST: 100 mL of Isovue 370 mg/mL. TECHNIQUE: Multiple axial images of the heart with and without IV contrast were acquired. Additional reformatted images in Coronal, Sagittal, Oblique planes, as well as 3-D image from [place] [employer] were obtained. Dose modulation was used on this exam. FINDINGS: The Agatston coronary calcium score is 22.6. There is mild calcified atherosclerotic plaque. Aortic valve is trileaflet. There is no calcification on the valve leaflets. Aorta is normal in caliber. There is no evidence of dissection or aneurysm. Main pulmonary arteries normal in caliber. RIGHT main pulmonary artery appears normal. LEFT main pulmonary artery appears normal. Pulmonary veins are of normal configuration. There are 2 superior and 2 inferior branches. LEFT atrium is intact. The mitral valve appears intact without calcification. LEFT main coronary artery originates in the usual fashion. This vessel does not appear to have luminal obstruction. LEFT anterior descending artery originates from the LEFT main in the usual fashion. This vessel travels to the apex giving off a cascade of the lateral branches and a cascade of septal branches. There is approximately 40-50% stenosis from noncalcified plaque origin of D1 artery. Circumflex artery originates from the LEFT main in the usual fashion. This is a nondominant system. There is approximately 20-30% stenosis from noncalcified plaque in the proximal LCx, but this may be due to marked redundancy in this region. RIGHT coronary artery is very large dominant system. This is a tortuous system which ultimately gives off the PDA and a posterolateral network. On the 60% phase, there is approximately 40-50% stenosis from mixed calcified and noncalcified plaque in the proximal RCA. There is a proximally 40-50% stenosis from noncalcified plaque in the mid RCA. LEFT ventricular ejection fraction is 68%. LEFT ventricle is of normal size and with LEFT apical hypokinesia and thinning. The pericardium appears to have normal thickness without effusions noted. There is a 1.3 x 1.8 cm mildly enlarged noncalcified RIGHT paratracheal lymph node with normal fatty hilum. IMPRESSION: Mild Agatston coronary calcium score of 22.6. RIGHT dominant system with approximately 40-50% stenosis in the proximal and mid RCA. Approximately 40-50% stenosis in the proximal D1 artery. Approximately 20-30% stenosis in the proximal LCx, but this could be due to marked redundancy in this region. Normal LEFT ventricular ejection fraction of 68% with LEFT apical hypokinesia and thinning. Assisted by Gomez Rios RPA/RA 12/04/2020 18:05 Electronically Signed and Authenticated by Zoraida Perez M.D. 12/04/2020 18:05 Procedure Note Zoraida Peerz MD - 12/04/2020 Accession Exam CompletedDate/Time [id number] CT CTA CORONARY ARTERIES WITH SCORING 112:29 Requesting: BESS JUAREZ CT Angiography of the Coronary Arteries with Calcium Scoring Analysis: COMPARISONS: None INDICATION: Dyspnea on exertion (MONSON) QUALITY OF STUDY:Good CONTRAST: 100 mL of Isovue 370 mg/mL. TECHNIQUE: Multiple axial images of the heart with and without IV contrastwere acquired. Additional reformatted images in Coronal, Sagittal, Obliqueplanes, as well as 3-D image from [place] [employer] were obtained. Dosemodulation was used on this exam. FINDINGS: The Agatston coronary calcium score is 22.6. There is mild calcifiedatherosclerotic plaque. Aortic valve is trileaflet. There is no calcification on the valveleaflets. Aorta is normal in caliber. There is no evidence of dissectionor aneurysm. Main pulmonary arteries normal in caliber. RIGHT main pulmonary arteryappears normal. LEFT main pulmonary artery appears normal. Pulmonary veins are of normal configuration. There are 2 superior and 2inferior branches. LEFT atrium is intact. The mitral valve appears intactwithout calcification. LEFT main coronary artery originates in the usual fashion. This vesseldoes not appear to have luminal obstruction. LEFT anterior descending artery originates from the LEFT main in the usualfashion. This vessel travels to the apex giving off a cascade of thelateral branches and a cascade of septal branches. There is cybqioeaomvor61-04% stenosis from noncalcified plaque origin of D1 artery. Circumflex artery originates from the LEFT main in the usual fashion. Thisis a nondominant system. There is approximately 20-30% stenosis fromnoncalcified plaque in the proximal LCx, but this may be due to markedredundancy in this region. RIGHT coronary artery is very large dominant system. This is a tortuoussystem which ultimately gives off the PDA and a posterolateral network. Onthe 60% phase, there is approximately 40-50% stenosis from mixed calcifiedand noncalcified plaque in the proximal RCA. There is a proximally 40-50% stenosis from noncalcifiedplaque in the mid RCA. LEFT ventricular ejection fraction is 68%. LEFT ventricle is of normalsize and with LEFT apical hypokinesia and thinning. The pericardium appears to have normal thickness without effusionsnoted. There is a 1.3 x 1.8 cm mildly enlarged noncalcified RIGHT paratracheallymph node with normal fatty hilum. IMPRESSION: Mild Agatston coronary calcium score of 22.6. RIGHT dominant system with approximately 40-50% stenosis in the proximaland mid RCA. Approximately 40-50% stenosis in the proximal D1 artery. Approximately 20-30% stenosis in the proximal LCx, but this could be dueto marked redundancy in this region. Normal LEFT ventricular ejection fraction of 68% with LEFT apicalhypokinesia and thinning. Assisted by Gomez Rios RPA/ 118:05 Electronically Signed and Authenticated by Zoraida Perez M.D. 12/04/2020 18:05 Bess Juarez CYLINDER CHECKER CT WITH CONTRAST Final Re sult documented in this encounter Visit Diagnoses Diagnosis Shortness of breath Disease of cardiovascular system Unspecified cardiovascular disease EBCT (electron beam computerized tomography) abnormal Other nonspecific abnormal cardiovascular system function study Shortness of breath- Primary Disease of cardiovascular system Unspecified cardiovascular disease EBCT (electron beam computerized tomography) abnormal Other nonspecific abnormal cardiovascular system function study documented in this encounter Care Teams Loom Repairer Relationship Specialty Start Date End Date Senia Multani APRN PCP - General Family Medicine 01/20/17 documented as of this encounter
--- OUTSIDE RECORDS SUMMARY | 2024-12-20 13:05 | XMS_ITS | Encounter Summary ---
Author Organization [facility] Address [address] [place] [address] Phone Care Team Providers Care Equity Analyst Name Role Phone Senia Multani APRN Primary Care Provider Encounter Details Date Type Department Care Team (Late st Contact Info) Description 06/30/2023 Orders Only [facility] [address] [place] [address] Byron Villarreal, HAND TRUCKER [address] [place] [address] Infrarenal abdominal aortic aneurysm (AAA) without rupture ([facility]) Social History Tobacco Use Types Packs/Day Years [...] on file Legal Sex Female 8:07 AM QC TECH Gender Identity Not on file Sexual Orientation Not on file 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 Not on file N ot on file documented as of this encounter Plan of Treatment Upcoming Encounters Date Type Department Care Team (Late st Contact Info) Description 03/21/2025 9:15 AM QC TECH Office Visit [facility] [address] [place] [address] Arely Clemens, YUNIER [address] [place] [address] documented as of this encounter Procedures Procedure Name Priority Date/Time Associated Diagnosis Comments CT CTA ABDOMEN / PELVIS Routine 06/28/2023 1:33 PM CDT Infrarenal abdominal aortic aneurysm (AAA) without rupture (CMS-HCC) documented in this encounter Results * CT CTA ABDOMEN / PELVIS (06/28/2023 1:33 PM CDT) Anatomical Region Laterality Modality Abdomen, Pelvis N/A Computed Tomogra phy us Byron Villarreal APRN CT WITH CONTRAST Final Resu lt documented in this encounter Visit Diagnoses Diagnosis Infrarenal abdominal aortic aneurysm (AAA) without rupture (CMS-HCC) documented in this encounter Care Teams Equity Analyst Relationship Specialty Start Date End Date Senia Multani APRN PCP - General Family Medicine 01/20/17 documented as of this encounter
--- OUTSIDE RECORDS SUMMARY | 2024-12-20 13:05 | XMS_ITS | Encounter Summary ---
Author Organization [facility] Address [address] [place] [address] Phone Care Team Providers Care Senior Game Designer Name Role Phone Senia Mlutani APRN Primary Care Provider Reason for Referral * - Complete Specialty Diagnoses / Procedures Referred By Ann alvarez Referred To Contact Diagnoses Other specified disorders of bone density and structure, other site Procedures DEXA BONE DENSITOMETRY DEXA BONE DENSITOMETRY Babak Bella MD Phone: tel:[phone] fax: Referral ID Status Reason Start Date Expiration Date V isits Requested Visits Authorized [id number] Complete 02/26/2022 1 1 HT SERVICE SPECIALIST Encounter Details Date Type Department Care Team (Latest Contact Info) Description 03/01/2022 Transcribe Orders [facility] WORK COUNSELOR Main [address] [place] [address] Babak Bella MD [address] [place] [phone] (Work) Other specified disorders of bone density and structure, other site Social History Tobacco Use Types Packs/Day Years [...] on file Legal Sex Female 8:07 AM FLIGHT SERVICE SPECIALIST Gender Identity Not on file Sexual Orientation Not on file 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 No / Unsure 02/24/2022 3:40 PM FLIGHT SERVICE SPECIALIST documented as of this encounter Plan of Treatment Upcoming Encounters Date Type Department Care Team (Late st Contact Info) Description 03/21/2025 9:15 AM FLIGHT SERVICE SPECIALIST Office Visit [address] [address] Arely Clemens, PA [address] [place], [place] [id number] documented as of this encounter Results * DEXA BONE DENSITOMETRY (04/12/2022 2:09 PM FLIGHT SERVICE SPECIALIST) Anatomical Region Laterality Modality N/A Digital Radiogra phy 04/12/2022 1:34 PM FLIGHT SERVICE SPECIALIST Narrative 04/12/2022 7:15 PM FLIGHT SERVICE SPECIALIST Accession Exam Completed Date/Time [id number] DEXA BONE DENSITOMETRY 04/12/2022 14:09 Requesting: BABAK BELLA DEXA Bone Density Report: COMPARISON: None Available Bone Mineral Density performed on a [employer] DXA. The technical quality is excellent, and the exam is adequate for interpretation. World Health Organization (WHO) criteria: Normal: T-score at or above -1.0 Osteopenia: T-score between -1.0 and -2.5 Osteoporosis: T-score at or below -2.5 g/cm? T-score Lumbar Spine (L1-L4) 1.199 0.2 Left Femoral Neck 0.811 -1.6 Left Total Hip 0.835 -1.4 ASSESSMENT: The Bone Mineral Density fulfills the WHO classification for low bone mineral density (OSTEOPENIA). Using the WHO FRAX probability model of the Left Femur, the 10-year fracture risk is about 10.6% for a major osteoporotic related fracture and 3.0% for a hip fracture. According to the National Osteoporosis Foundation (NOF) and the International Society for Clinical Densitometry (ISCD), FDA-approved medical therapies should be considered due to the 10 year fracture probably by FRAX > 3% for a hip fracture or > 20% for a major osteoporotic fracture. RECOMMEND: Optimize calcium and vitamin D, and consider pharmacological therapy for osteoporosis if not contraindicated. FOLLOW-UP: Repeat Bone Mineral Density as appropriate in 1-2 years. THIS IS AN ABNORMAL FINDING. Electronically Signed and Authenticated by Zoraida Perez M.D. 04/12/2022 19:15 Procedure Note Zoraida Perez MD - 04/12/2022 Accession Exam CompletedDate/Time [id number] DEXA BONE DENSITOMETRY 314:09 Requesting: BABAK BELLA DEXA Bone Density Report: COMPARISON: None Available Bone Mineral Density performed on a [employer]. The technical quality is excellent, and the exam is adequate forinterpretation. World Health Organization (WHO) criteria: Normal: T-score at or above -1.0 Osteopenia: T-score between -1.0 and -2.5 Osteoporosis: T-score at or below -2.5 g/cm? T-score Lumbar Spine (L1-L4) 1.199 0.2 Left Femoral Neck 0.811 -1.6 Left Total Hip 0.835 -1.4 ASSESSMENT: The Bone Mineral Density fulfills the WHO classification forlow bone mineral density (OSTEOPENIA). Using the WHO FRAX probability model of the Left Femur, the 10-yearfracture risk is about 10.6% for a major osteoporotic related fracture and3.0% for a hip fracture. According to the National Osteoporosis Foundation(NOF) and the International Society for Clinical Densitometry (ISCD), FDA-approved medical therapies should beconsidered due to the 10 year fracture probably by FRAX > 3% for a hipfracture or > 20% for a major osteoporotic fracture. RECOMMEND: Optimize calcium and vitamin D, and consider pharmacologicaltherapy for osteoporosis if not contraindicated. FOLLOW-UP: Repeat Bone Mineral Density as appropriate in 1-2 years. THIS IS AN ABNORMAL FINDING. Electronically Signed and Authenticated by Zoraida Perez M.D. 04/12/2022 19:15 Babak Bella MD MAMMOGRAPHY Final Result documented in this encounter Visit Diagnoses Diagnosis Other specified disorders of bone density and structure, other site Other specified disorders of bone density and structure, other site documented in this encounter Care Teams Senior Game Designer Relationship Specialty Start Date End Date Senia Multani APRN PCP - General Family Medicine 01/20/17 documented as of this encounter
--- OUTSIDE RECORDS SUMMARY | 2024-12-20 13:05 | XMS_ITS | Encounter Summary ---
Author Organization [facility] Address [address] [place] [address] Phone Care Team Providers Care Emergency Medical Services Coordinator Name Role Phone Senia Multani APRN Primary Care Provider Encounter Details Date Type Department Care Team (Late st Contact Info) Description 10/08/2020 Telephone 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 No / Unsure 10/09/2020 1:09 PM CDT documented as of this encounter Miscellaneous Notes * Telephone Encounter - Kecia Carr RN - 10/08/2020 11:34 AM CDT Pt portal message sent. * Telephone Encounter - Kecia Carr RN - 10/08/2020 11:32 AM CDT Images from the original note were not included. Bess Juarez APRN P [facility] Cardiology Main Nurse Please call patient to get blood pressure readings documented in this encounter Plan of Treatment Upcoming Encounters Date Type Department Care Team (Late st Contact Info) Description 03/21/2025 9:15 AM SENIOR CLERK Office Visit [address] [address] Arely Clemens, YUNIER [address] [place] [address] documented as of this encounter Visit Diagnoses Not on filedocumented in this encounter Care Teams Emergency Medical Services Coordinator Relationship Specialty Start Date End Date Senia Multani APRN PCP - General Family Medicine 01/20/17 documented as of this encounter
--- OUTSIDE RECORDS SUMMARY | 2024-12-20 13:05 | XMS_ITS | Encounter Summary ---
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 No / Unsure 02/24/2022 3:40 PM LINE CONSTRUCTION SUPERINTENDENT documented as of this encounter Plan of Treatment Upcoming Encounters Date Type Department Care Team (Late Contact Info) Description 03/21/2025 9:15 AM LINE CONSTRUCTION SUPERINTENDENT Office Visit [facility] Dermatology [facility] [address] [place] [phone] Arely Clemens, YUNIER [address] [place] [address] documented as of this encounter Visit Diagnoses Not on filedocumented in this encounter Care Teams Electromechanical Assembly Technician Relationship Specialty Start Date End Date Senia Multani APRN PCP - General Family Medicine 01/20/17 documented as of this encounter
--- OUTSIDE RECORDS SUMMARY | 2024-12-20 13:05 | XMS_ITS | Encounter Summary ---
Author Organization [facility] Address [address] [place] [address] Phone Care Team Providers Care Spring Tier Name Role Phone Senia Multani APRN Primary Care Provider Reason for Referral * - Complete Specialty Diagnoses / Procedures Referred By Ann alvarez Referred To Contact Diagnoses Aortoiliac occlusive disease ([facility]) PVD (peripheral vascular disease) Procedures US CARLOS EDUARDO US CARLOS EDUARDO W/EXERCISE Catherine Ashford PA Referral ID Status Reason Start Date Expiration Date V isits Requested Visits Authorized [id number] Complete 11/07/2020 1 1 Encounter Details Date Type Department Care Team (Latest Contact Info) Description 10/30/2021 Transcribe Orders [facility] Department of Vein and Vascular [address] [place] [id number] Catherine Ashford PA Aortoiliac occlusive disease; PVD (peripheral vascular disease) Social History Tobacco Use Types Packs/Day Years [...] on file 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 No / Unsure 11/02/2021 8:14 AM CDT documented as of this encounter Plan of Treatment Upcoming Encounters Date Type Department Care Team (Late st Contact Info) Description 03/21/2025 9:15 AM WRECKING SUPERVISOR Office Visit [facility] Dermatology [address] [address] Arely Clemens PA [address] [place] [address] documented as of this encounter Results * US CARLOS EDUARDO (10/30/2021 10:24 AM CDT) Anatomical Region Laterality Modality Vascular Ultrasound 10/30/2021 9:46 AM CDT Impressions 11/02/2021 6:39 PM CDT Accession Exam Completed Date/Time [id number] US CARLOS EDUARDO 10/30/2021 10:24 Requesting: CATHERINE ASHFORD CARLOS EDUARDO: Technologist: Bal Kimble RVT Clinical Indication: Peripheral vascular disease Ankle-brachial index with toe pressure and PPG waveform and multi-level continuous Doppler waveforms performed. Previous Exam: 11/05/2020 Right: Pressures (mmHg): Brachial: 161 Posterior tibial: 100 Dorsalis pedis: 129 Greater toe: 72 CARLOS EDUARDO (RN UNIT MANAGER): 0.60 CARLOS EDUARDO (DPA): 0.75 TBI: 0.43 Waveforms: Femoral: Biphasic Popliteal: Biphasic Posterior tibial: Biphasic Dorsalis pedis: Biphasic Greater toe: Abnormal Left: Pressures (mmHg): Brachial: 168 Posterior tibial: 133 Dorsalis pedis: 142 Greater toe: 97 CARLOS EDUARDO (RN UNIT MANAGER): 0.79 CARLOS EDUARDO (DPA): 0.85 TBI: 0.58 Waveforms: Femoral: Biphasic Popliteal: Biphasic Posterior tibial: Monophasic Dorsalis pedis: Biphasic Greater toe: Abnormal Impression: Right: CARLOS EDUARDO demonstrates moderate disease. There are biphasic waveforms throughout evaluated lower extremity arteries suggestive of inflow arterial disease on this side. TBI is within the moderate disease range suggestive of either small vessel disease in the feet and/or underlying peripheral arterial disease. The greater toe pressure is 72mmHg. Left: CARLOS EDUARDO demonstrates moderate disease. Biphasic waveform at the femoral arterial segment is suggestive of inflow disease. The waveform at the popliteal segment further degraded into monophasic waveform at the posterior tibial segment which is also suggestive of popliteal-posterior tibial disease on this side. TBI is within the moderate disease range suggestive of either small vessel disease in the feet and/or underlying peripheral arterial disease. The greater toe pressure is 97mmHg. Assisted by Bal Kimble RVT 11/02/2021 18:39 Electronically Signed and Authenticated by Ricardo Caban 11/02/2021 18:39 Narrative Procedure Note Ricardo Caban MD - 11/02/2021 IMPRESSION Accession Exam CompletedDate/Time [id number] CARLOS EDUARDO 210:24 Requesting: CATHERINE ASHFORD CARLOS EDUARDO: Technologist: Bal Kimble RVT Clinical Indication: Peripheral vascular disease Ankle-brachial index with toe pressure and PPG waveform and multi- levelcontinuous Doppler waveforms performed. Previous Exam: 11/05/2020 Right: Pressures (mmHg): Brachial: 161 Posterior tibial: 100 Dorsalis pedis: 129 Greater toe: 72 CARLOS EDUARDO (RN UNIT MANAGER): 0.60 CARLOS EDUARDO (DPA): 0.75 TBI: 0.43 Waveforms: Femoral: Biphasic Popliteal: Biphasic Posterior tibial: Biphasic Dorsalis pedis: Biphasic Greater toe: Abnormal Left: Pressures (mmHg): Brachial: 168 Posterior tibial: 133 Dorsalis pedis: 142 Greater toe: 97 CARLOS EDUARDO (RN UNIT MANAGER): 0.79 CARLOS EDUARDO (DPA): 0.85 TBI: 0.58 Waveforms: Femoral: Biphasic Popliteal: Biphasic Posterior tibial: Monophasic Dorsalis pedis: Biphasic Greater toe: Abnormal Impression: Right: CARLOS EDUARDO demonstrates moderate disease. There are biphasic waveforms throughout evaluated lower extremity arteriessuggestive of inflow arterial disease on this side. TBI is within the moderate disease range suggestive of either small vesseldisease in the feet and/or underlying peripheral arterial disease. The greater toe pressure is 72mmHg. Left: CARLOS EDUARDO demonstrates moderate disease. Biphasic waveform at the femoral arterial segment is suggestive of inflowdisease. The waveform at the popliteal segment further degraded intomonophasic waveform at the posterior tibial segment which is alsosuggestive of popliteal-posterior tibial disease on this side. TBI is within the moderate disease range suggestive of either small vesseldisease in the feet and/or underlying peripheral arterial disease. The greater toe pressure is 97mmHg. Assisted by Bal Kimble RVT 11/02/2021 18:39 Electronically Signed and Authenticated by Ricardo Caban 8:39 Catherine Ashford [facility] Final Result documented in this encounter Visit Diagnoses Diagnosis Aortoiliac occlusive disease (CMS-HCC) Other arterial embolism and thrombosis of abdominal aorta PVD (peripheral vascular disease) Peripheral vascular disease, unspecified Aortoiliac occlusive disease (CMS-HCC) Other arterial embolism and thrombosis of abdominal aorta PVD (peripheral vascular disease) Peripheral vascular disease, unspecified documented in this encounter Care Teams Spring Tier Relationship Specialty Start Date End Date Senia Multani APRN PCP - General Family Medicine 01/20/17 documented as of this encounter
--- OUTSIDE RECORDS SUMMARY | 2024-12-20 13:05 | XMS_ITS | Encounter Summary ---
Author Organization [facility] Address [address] [place] [address] Phone Care Team Providers Care Supervisor Dog License Officer Name Role Phone Senia Multani APRN, NEFTALI Primary Care Pro vider Mikayla Osorio APRN, BASKETBALLS AND FOOTBALLS REVERSER Unavailable Reason for Visit * Reason Comments Medication Refill Encounter Details Date Type Department Care Team (Late st Contact Info) Description 04/20/2022 Refill [facility] - Gastroenterology [facility] [address] [place] [address] Raj Patel MD [address] [place] [address] Medication Refill Social History Tobacco Use Types Packs/Day Years Used Date Smoking Tobacco: Every Day Cigarettes 0.5 44 Smokeless Tobacco: Never Alcohol Use Standard Drinks/Week Comments Yes 0 (1 standard drink = 0.6 oz pur e alcohol) rarely PHQ-2 Answer Date Recorded Total Score - Questions 1-9 0 09/0 09/2021 Education Answer Date Recorded What is the highest level of school you have completed or the highest degree you have received? Associate degree: occupational, technical, or vocational program 05/27/2020 Sexually Active Control Partners Comments Yes Post-menopausal Comments No Sex and Gender Information Value Date Recorded Sex Assigned at Not on file Legal Sex Female 8:15 PM DIRECTOR DATABASE Gender Identity Not on file Sexual Orientation Not on file documented as of this encounter Miscellaneous Notes * Telephone Encounter - Margarita Naranjo RN - 04/20/2022 10:06 AM CST Call placed to patient to determine if symptoms improved with use of pantoprazole. Patient reports that she has had very limited break-through abdominal bloating or belching since starting pantoprazole. Patient would like to trial for another 30 days. CTOR DATABASE documented in this encounter Plan of Treatment Upcoming Encounters Date Type Department Care Team (Late st Contact Info) Description 01/02/2025 7:20 AM DIRECTOR DATABASE Office Visit [facility] - Primary [facility] [address] [place] [address] Senia Multani APRN, BASKETBALLS AND FOOTBALLS REVERSER [address], [place] [id number] documented as of this encounter Visit Diagnoses Not on filedocumented in this encounter Additional Health Concerns Infection Onset Date Last Indicated Resolved Time C. difficile Rule-Out 02/04/2024 02/04/20242023 8:25 AM DIRECTOR DATABASE C. difficile 02/04/2024 02/04/2024 05/04/2024 12:1 6 AM CDT Respiratory Rule-Out 02/13/2024 02/13/2024 024 1:58 PM DIRECTOR DATABASE Assessment Noted Time PHQ-9 Depression Total Score: 1 08/29/19 21 10:29 AM CDT documented as of this encounter Care Teams Supervisor Dog License Officer Relationship Specialty Start Date End Date Senia Multani APRN, BASKETBALLS AND FOOTBALLS REVERSER [address] [place], [place] [id number] PCP - General Advanced Practice Nurse 06/03/17 Mikayla Osorio APRN, BASKETBALLS AND FOOTBALLS REVERSER [address] [place] [address] Nurse Practitioner Pulmonary Disease 11/06/20 documented as of this encounter
--- OUTSIDE RECORDS SUMMARY | 2024-12-20 13:05 | XMS_ITS | Encounter Summary ---
Author Organization [facility] Address [address] [place] [address] Care Team Providers Care Chemical Dependency Therapist Name Role Phone Sandro Wilson MD Unavailable Senia Multani NP Unavailable [phone] Senia Multani NP Primary Care Provider + Reason for Referral * Diagnostic Imaging (Routine) - Authorized Specialty Diagnoses / Procedures Referred By Ann alvarez Referred To Contact Diagnoses Aftercare following surgery of the circulatory system Procedures US Carotids Duplex Bilateral Wilbert Norman MD [address] [address] Phone: tel: fax: [facility] Vascular and Vein Surgery at [address] [address] Phone: tel: fax: Referral ID Status Reason Start Date Expiration Date V isits Requested Visits Authorized [id number] Authorized 12/19/2024 01/18/2026 1 1 E FUND PRINCIPAL Encounter Details Date Type Department Care Team (Late st Contact Info) Description 12/19/2024 Orders Only [facility] Medical [facility] Vascular at [address] [address] Wilbert Norman MD [address] [facility] [place] [address] Aftercare following surgery of the circulatory system (Primary Dx) Social History Tobacco Use Types [...] 12/04/2024 How often do you attend [employer] or tenriism services? Never 12/04/2024 Do you belong to any clubs o r organizations such as roman catholic groups, unions, fraternal or athletic groups, or [...] any time in the past 12 m [facility], were you homeless or living in a alf (including now)? No 12/04/2024 [facility] Utilities Answer Date Recorded In the past 12 months has th e electric, gas, oil, or water company [...] on file Legal Sex Female 4:20 AM HEDGE FUND PRINCIPAL Gender Identity Not on file Sexual Orientation Not on file documented as of this encounter Functional Status * BP Location Answer Date of Assessment Author Left arm 12/19/2024 11:09 AM Rony Palacios MA * BP Location Answer Date of Assessment Author Left arm 12/19/2024 11:09 AM Rony Palacios MA documented as of this encounter Plan of Treatment Scheduled Orders Name Type Priority Associated Diagnoses Orde r Schedule US Carotids Duplex Bilateral Imaging Schedule Routine, Read Routine (OP Routine) Aftercare following surgery of the circulatory system Expected: 06/18/2025, Expires: 06/18/2026 documented as of this encounter Visit Diagnoses Diagnosis Aftercare following surgery of the circulatory system- Primary Aftercare following surgery of the circulatory system, NEC documented in this encounter Care Teams Chemical Dependency Therapist Relationship Specialty Start Date End Date Senia Multani NP [address] [place] [address] PCP - General Nurse Practitioner 11/21/24 Sandro Wilson MD Referring Physician Cardiology 11/12/24 Senia Multani NP [address] [place] [address] Nurse Practitioner 11/12/24 documented as of this encounter
--- OUTSIDE RECORDS SUMMARY | 2024-12-20 13:05 | XMS_ITS | Encounter Summary ---
Author Organization [facility] Address [address] [place] [address] Phone Care Team Providers Care Hemodialysis Charge Nurse Name Role Phone Senia Multani SAW MAKER Primary Care Provider Reason for Visit * Reason Onset Date Comments Insurance Prior Authorization 12/02/2020 NE EDING CODE Encounter Details Date Type Department Care Team (Late st Contact Info) Description 12/02/2020 Telephone [facility] Cardiology Main [address] [place] [address] Bess Juarez APRN [address] [place] [address] Insurance Prior Authorization (NEEDING CODE) Social History Tobacco Use Types Packs/Day Years [...] on file Legal Sex Female 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 No / Unsure 12/05/2020 1:19 PM CDT documented as of this encounter Miscellaneous Notes * Telephone Encounter - Bess Juarez APRN - 12/03/2020 1:30 PM CDT R94.39-abnormal result of other cardiac study. Patient had MARY JANE that noted less than 1 mm horizontalST segment depression in inferior and anterolateral leads. This test was nondiagnostic as patient did not achieve 85% of the age predicted maximum heart rate. She has multiple risk factors for CAD and continues to have exertional dyspnea, requiring additional work up * Telephone Encounter - Melissa Tim - 12/02/2020 8:17 AM CDT I am needing a medicare payable DX code CHARLI or we will have to reschedule patient. The list is found here. [email or web address] documented in this encounter Plan of Treatment Upcoming Encounters Date Type Department Care Team (Late st Contact Info) Description 03/21/2025 9:15 AM ABRASIVE SAWYER Office Visit [facility] Dermatology [facility] [address] [place] [address] Arely Clemens PA [address] [place], [place] [address] documented as of this encounter Visit Diagnoses Not on filedocumented in this encounter Care Teams Hemodialysis Charge Nurse Relationship Specialty Start Date End Date Senia Multani APRN PCP - General Family Medicine 01/20/17 documented as of this encounter
--- OUTSIDE RECORDS SUMMARY | 2024-12-20 13:05 | XMS_ITS | Clinical Summary ---
Author Organization [facility] Address [address] [place] [address] Care Team Providers Care Claims Investigator Name Role Phone Sandro Wilson MD Unavailable Senia Multani NP Unavailable [phone] Senia Multani NP Primary Care Provider + Allergies Active Allergy Reactions Criticality Noted Date Comments Adhesive Rash Medium 11/12/2024 TOLERATES TEGADERM Ciprofloxacin Hives,Rash Medium 11/16/2018 Nitrofurantoin Palpitations Low 10/24/2018 Penicillins Anaphylaxis High 05/31/2017 Hypotension, passed out, N/V, anxiety Pgwjvim-Uyp-Bhq Reductase Inhibitors Nausea only,Nausea And Vomiting,Other (See comments) Medium 05/31/2017 Muscle aches, GERD, weakness, nausea Tapentadol Nausea only Low 10/24/2018 Medications metoprolol XL (TOPROL-XL) 25 mg extended release tablet Take 1 tablet (25 mg total) by mouth nightly Active olmesartan (BENICAR) 20 mg tablet Take 1 tablet (20 mg total) by mouth nightly Active aspirin 81 mg enteric coated tablet Take 1 tablet (81 mg total) by mouth daily Active ezetimibe (ZETIA) 10 mg tablet Take 1 tablet (10 mg total) by mouth nightly 30 tablet 11/01/19 25 09/17/2 026 Active metFORMIN (GLUCOPHAGE) 500 mg tablet Take 1 tablet (500 mg total) by mouth 2 (two) times a day with meals 11/02/19 Active amLODIPine (NORVASC) 5 mg tablet Take 1 tablet (5 mg total) by mouth daily 30 tablet 11/01/19 25 026 Active Additional Information Patient not taking.Reported on 12/19/2024 ALPRAZolam (XANAX) 0.5 mg tablet Take 1 tablet (0.5 mg total) by mouth 3 (three) times a day as needed for anxiety Active cetirizine (ZyrTEC) 10 mg tablet Take 1 tablet (10 mg total) by mouth daily 02/22/19 24 Active albuterol HFA (Ventolin HFA) 90 mcg/actuation inhaler Inhale 2 puffs every 6 (six) hours as needed for wheezing or shortness of breath 01/27/20 19 Active clopidogreL (PLAVIX) 75 mg tablet Take 1 tablet (75 mg total) by mouth nightly 30 tablet 2 11/30/19 25 026 Active clopidogreL (PLAVIX) 75 mg tablet Take 1 tablet (75 mg total) by mouth nightly 30 tablet 11/01/19 25 025 Discontinued clopidogreL (PLAVIX) 75 mg tablet Take 1 tablet (75 mg total) by mouth daily 30 tablet 11 11/29/19 25 025 Discontinued(St op Taking at Discharge) Active Problems Problem Noted Date Diagnosed Date Carotid stenosis, symptomatic, with infarction 1 Abnormal stress test 11/27/2024 Assessment & Plan (11/28/2024 1:13 PM CDT): -History of CAD -Abnormal Nuclear stress test outpatient -EKG on admission WNL -Troponins is negative -S/p 325 mg of Aspirin in the ER -C/wAspirin 81 mg daily -2D echocardiogram pending read -IV analgesics started PRN for pain -Cardiology following -cardiac catherization today -Tele Hypertension -Continue amlodipine, losartan, and metoprolol -Monitor blood pressure and make adjustments as needed Hyperlipidemia -Lipid panel (LDL 111, HDL 41, TG 211) -Continue Zetia Type 2 DM -Hgb A1c 7.3 28 days ago -Hold home oral hyperglycemic medications -Continue insulin sensitive SSI -Bedside glucose checks ACHS -Diabetic restricted diet. -Hypoglycemic protocol Seasonal allergies -Continue Zyrtec daily Anxiety -Continue home PRN Xanax for anxiety Primary hypertension 11/08/2024 Assessment & Plan (11/08/2024 8:02 AM CDT): Stable continue amlodipine Mixed hyperlipidemia 11/08/2024 Assessment & Plan (11/08/2024 8:02 AM CDT): Uncontrolled. Needs a statin. Continue Zetia. Stenosis of left carotid artery 11/07/2024 Stroke-like symptoms 10/30/2024 Nonintractable headache, uns pecified chronicity pattern, unspecified headache type 10/30/2024 Ischemic stroke 10/30/2024 Carotid stenosis, bilateral 10/30/2024 Assessment & Plan (11/08/2024 8:02 AM CDT): Severe bilateral internal carotid artery stenosis as well as left common carotid artery stenosis at the aortic arch. The left ICA stenosis is greater than 80%, also had a left sided possible MCA distribution stroke. She had returned to baseline. Discussed findings at length with the patient and her family, complicating her carotid disease is a prior left CEA done 8 years ago. Given her tandem lesions both at the left CCA and ICA I have recommended a left carotid cutdown with retrograde CCA stenting as well as a left TCAR. Risks benefits alternatives were discussed, risks including bleeding, infection, nerve injury, stroke, and need for further surgery. She wished to proceed. We did have a long discussion regarding her overall medical comorbidities, her lipid panel shows extremely uncontrolled hyperlipidemia as well as her tobacco abuse. I urged at length with her and her family for her to quit smoking as well as get her hyperlipidemia better controlled. We will get her established with a record systems analyst for medical management and cardiac risk assessment. Encounters Date Type Department Care Team Description 12/19/2024 11:15 AM PYTHON WEB DEVELOPER Office Visit [facility] at [address] [place] [address] Mary Norman MD 12/19/2024 Orders Only [facility] at [address] [place] [address] Mary Norman MD Aftercare following surgery of the circulatory system (Primary Dx) 12/03/2024 7:41 AM CDT Anesthesia Event [facility] OR [address] [place] [phone] Tj Rodriguez MD Taylor-White, Carlotta A. DIE MAINTENANCE 12/03/2024 7:30 AM CDT - 12/03/2024 10:59 AM CDT Surgery [facility] OR [address] [place] [phone] Mary Norman MD LEFT CAROTID CUTDOWN WITH RETROGRADE STENT WITH LEFT TRANSCAROTID ARTERIAL REVASCULARIZATION 12/03/2024 5:27 AM CDT - 12/04/2024 2:15 PM CDT Hospital Encounter [facility] [address] [place] [phone] Mary Norman MD Carotid stenosis, symptomatic, with infarction (HCC) (Primary Dx); Stenosis of left carotid artery Discharge Disposition: Discharge to home or self care 11/28/2024 12:00 PM CDT - 11/28/2024 1:00 PM CDT Surgery [facility] Cardiac Printer Maintainer [address] [place] [address] John Dougherty MD CORONARY ANGIOGRAPHY [id number] 11/27/2024 8:02 PM CDT - 11/29/2024 11:06 AM CDT Hospital Encounter [facility] [address] Med [address] [place] [phone] Gomez Mack MD Sada, MD Reymundo Carter, Guille Melendez MD Nonintractable headache, unspecified chronicity pattern, unspecified headache type (Primary Dx); Abnormal stress test; Primary hypertension [I10] Discharge Disposition: Discharge to home or self care 11/27/2024 Telephone [facility] [address] [phone] John Dougherty MD 11/12/2024 3:30 PM CDT Pre-Admission Testing [facility] PreAdmission Testing [address] [place] [address] Stenosis of left carotid artery; Pre-operative laboratory examination 11/08/2024 Telephone [facility] Surgery [address] [place] [phone] Alison Felder MA 11/07/2024 2:00 PM CDT Office Visit [facility] Surgery [address] [place] [phone] Mary Norman MD Carotid stenosis, bilateral (Primary Dx); Primary hypertension; Mixed hyperlipidemia 11/07/2024 Documentation [facility] Surgery [address] [place] [phone] Arlene Ojeda, RN 11/07/2024 Orders Only [facility] Surgery [address] [place] [phone] Mary Norman MD Pre-operative cardiovascular examination (Primary Dx); Pre-operative laboratory examination 11/07/2024 Documentation [facility] Ve[facility] Surgery [address] [place] [phone] Arlene Ojeda, RN 10/29/2024 10:36 PM CDT - 10/31/2024 11:10 AM CDT Hospital Encounter [facility] 4 Med Surg [facility] [place] [address] Satya Nunez Jr., MD [place], MD Tessy Valdez, Tank Owens MD Nonintractable headache, unspecified chronicity pattern, unspecified headache type (Primary Dx) Discharge Disposition: Discharge to home or self care from Last 3 Months Surgical History Surgery Date Site/Laterality Comments COLONOSCOPY 12/16/2023 - 01/14/2024 CHOLECYSTECTOMY ESOPHAGOGASTRODUODENOSCOPY CAROTID ENDARTERECTOMY 02/14/2017 - 02/13/2018 Left TONSILLECTOMY CARDIAC CATHETERIZATION 11/28/2024 N/A Procedure: CORONARY ANGIOGRAPHY [id number]; Surgeon: John Dougherty MD; Location: [facility] CARDIAC BPM SOLUTION ARCHITECT; Service: Cardiovascular; Laterality: N/A; Medical devices from this surgery are in the Medical Devices section. CARDIAC CATHETERIZATION 11/28/2024 N/A Procedure: PCI BENI MAJOR CORONARY [id number] - [id number]; Surgeon: John Dougherty MD; Location: [facility] CARDIAC BPM SOLUTION ARCHITECT; Service: Cardiovascular; Laterality: N/A; Medical devices from this surgery are in the Medical Devices section. CARDIAC CATHETERIZATION 11/28/2024 N/A Procedure: IVUS/OCT CORS OR GRAFTS, FIRST VESSEL (+) [id number]; Surgeon: John Dougherty MD; Location: [facility] CARDIAC BPM SOLUTION ARCHITECT; Service: Cardiovascular; Laterality: N/A; Medical devices from this surgery are in the Medical Devices section. Medical History Medical History Date Comments PAD (peripheral artery disease) CVA (cerebral vascular accident) ([facility]) PONV (postoperative nausea and vomiting) Hypertension Coronary artery disease COPD (chronic obstructive pulmonary disease) GERD (gastroesophageal reflux disease) Type 2 diabetes mellitus Carotid stenosis, bilateral Social History Tobacco Use Types Packs/Day Years Used Date Smoking Tobacco: Every Day Cigarettes 0.5 49 Started: 1975; Last attempted to quit: 2024 Smokeless Tobacco: Never Tobacco Cessation:Ready to Q [...] 12/04/2024 How often do you attend [employer] or sikhism services? Never 12/04/2024 Do you belong to any clubs o r organizations such as evangelical groups, unions, fraternal or athletic groups, or [...] any time in the past 12 m [facility], were you homeless or living in a assisted (including now)? No 12/04/2024 [facility] Utilities Answer Date Recorded In the past 12 months has e [employer], gas, oil, or water [employer] threatened to shut off services in your home? No 12/04/2024 Personal Safety Answer Date Recorded Have you ever been in or are you currently in a harmful physical or emotional relationship or is someone making you feel afraid or unsafe? Denies 12/03/2024 Comments No Sex and Gender Information Value Date Recorded Sex Assigned at Not on file Legal Sex Female 4:20 AM PYTHON WEB DEVELOPER Gender Identity Not on file Sexual Orientation Not on file Last Filed Vital Signs Vital Sign Reading Time Taken Comments Blood Pressure 152/84 12/19/2024 11:09 AM PYTHON WEB DEVELOPER Pulse 66 12/19/2024 11:09 AM PYTHON WEB DEVELOPER Temperature 36.6 C (97.8 F) 12/04/2024 12:00 PM CDT Respiratory Rate 13 12/04/2024 12:00 PM CDT Oxygen Saturation 99% 12/19/2024 11:09 AM PYTHON WEB DEVELOPER Inhaled Oxygen Concentration - - Weight 68 kg (150 lb) 12/19/2024 11:09 AM PYTHON WEB DEVELOPER Height 157.5 cm (5' 2) 12/19/2024 11:09 AM PYTHON WEB DEVELOPER Body Mass Index 27.44 12/19/2024 11:09 AM PYTHON WEB DEVELOPER Plan of Treatment Health Maintenance Due Date Last Done Comments Albumin Creatinine Ratio, Urine 1950 Colon Cancer Screening-Colonoscopy 1950 Depression Screening 1950 Hepatitis C Screening 1950 Osteoporosis Screening-Bone Density Scan 1950 Dilated Eye Exam 1950 Foot Exam 1950 Hepatitis B Screening 1968 Zoster Vaccine (1 of 2) 2000 Well Visit 65+ 11/27/2015 Pneumococcal vaccine 65+ (2 of 2 - PCV) 11/11/2017 11/11/2016 Lung Cancer Screening 12/23/2023 12/22/2022 , 10/20/2021, 12/28/2017 Influenza Vaccine (#1) 2024 , 12/15/2022, 01/12/2021, Additional history exists Breast Cancer Screening-Mammogram 10/30/2024 10/31/2023, 10/31/2023, 01/15/2021, Additional history exists Hemoglobin A1C 06/03/2025 12/03/2024, 10/15, 10/30/2024 DTaP/Tdap/Td Vaccine (2 - Td or Tdap) 09/19/2025 09/20/2015 Lipid Panel 11/28/2025 11/28/2024, 10/15, 10/30/2024, Additional history exists Fall Risk Assessment 12/04/2025 12/04/2024 eGFR 12/04/2025 12/04/2024, 11/15, 11/28/2024, Additional history exists Medical Devices Implanted Type Area Senior Bi Developer Device Identifier Shelf Expiration Date Model / Serial / Lot [employer] Enroute Uber Flex 8mm .065in 40mm 57cm Delivery System Angle Tip [id number]-[id number] - [id number] Implanted:Qty: 1 on 12/03/2024 by Mary Norman MD at [facility] Stent Left: Carotid [employer] [id number] 11/13/2026 SR-0840- CS / / [id number] Medtronic Card Vasc Surgery 3.0 X 38mm Tim Waverly Rx Coronary Stent [id number] - [id number] Implanted:Qty: 1 on 11/28/2024 by John Dougherty MD at [facility] Medtronic Card Vasc Surgery 02/25/2027 [id number] / / [id number] Medtronic Card Vasc Surgery 3.5 X 38mm Tim Waverly Rx Coronary Stent [id number] - [id number] Implanted:Qty: 1 on 11/28/2024 by John Dougherty MD at [facility] Medtronic Card Vasc Surgery 01/18/2027 [id number] / / [id number] Medtronic Card Vasc Surgery 3.5 X 15mm Savannah Waverly Rx Coronary Stent [id number] - [id number] Implanted:Qty: 1 on 11/28/2024 by John Dougherty MD at [facility] Medtronic Card Vasc Surgery 10/12/2026 [id number] / / [id number] [employer] Stent Graft Endoprosthesis Reduced Profile Straight Heparin Coated Viabahn [id number] - [id number] - [id number] Implanted:Qty: 1 on 12/03/2024 by Mary Norman MD at [facility] Left: Carotid [employer]l [employer] [id number] 05/14/2027 [id number] / [id number] Procedures Procedure Name Priority Date/Time Associated Diagnosis Comments CRITICAL CARE Routine 12/04/2024 2:15 PM CDT Carotid stenosis, symptomatic, with infarction (HCC) INFECTION PREVENTION MARLA AURIS PCR, SURVEILLANCE Routine 12/04/2024 1:13 PM CDT POCT GLUCOSE DEVICE Routine 12/04/2024 12:14 PM CDT US CAROTID DUPLEX UNILATERAL LEFT IP Routine 12/04/2024 8:44 AM CDT POCT GLUCOSE DEVICE Routine 12/04/2024 7 :50 AM CDT EGFR Routine 12/04/2024 4:30 AM CDT PHOSPHORUS Routine 12/04/2024 4:30 AM CDT CBC WITHOUT DIFFERENTIAL Routine 12/04/2024 4:30 AM CDT BASIC METABOLIC PANEL Routine 12/04/2024 4:30 AM CDT MAGNESIUM Routine 12/04/2024 4:30 AM CDT POCT GLUCOSE DEVICE Routine 12/03/2024 8 :48 PM CDT INFECTION PREVENTION MRSA ONLY (STAPHYLOCOCCUS AUREUS) PCR Routine 12/03/2024 5:46 PM CDT EGFR Timed 12/03/2024 5:45 PM CDT BASIC METABOLIC PANEL Timed 12/03/2024 5:45 PM CDT HEMOGLOBIN A1C Routine 12/03/2024 5:45 PM CDT POCT GLUCOSE DEVICE Routine 12/03/2024 5 :16 PM CDT CRITICAL CARE Routine 12/03/2024 10:52 AM CDT POCT GLUCOSE DEVICE Routine 12/03/2024 10:12 AM CDT FL FLUOROSCOPY < 1 HOUR IP Routine 12/04/19 9:46 AM CDT POCT ACTIVATED CLOTTING TIME, LOW RANGE Routine 12/03/2024 8:42 AM CDT IA AN PROCEDURE PLACEHOLDER Routine 12/03/2024 8:31 AM CDT IA AN PROCEDURE PLACEHOLDER Routine 12/03/2024 8:14 AM CDT IA AN PROCEDURE PLACEHOLDER Routine 12/03/2024 8:13 AM CDT IA AN ELECTIVE ENDOTRACHEAL AIRWAY Routine 12/03/2024 8:13 AM CDT TRANSCAROTID ARTERIAL REVASCULARIZATION 12/03/2024 7:41 AM CDT Stenosis of left carotid artery POCT GLUCOSE DEVICE Routine 12/03/2024 6 :33 AM CDT ANTIBODY SCREEN STAT 12/03/2024 6:18 AM CDT ABO/RH STAT 12/03/2024 6:18 AM CDT TYPE AND SCREEN STAT 12/03/2024 6:18 AM CDT POCT GLUCOSE DEVICE Routine 11/29/2024 9 :19 AM CDT POCT GLUCOSE DEVICE Routine 11/29/2024 7 :56 AM CDT POCT GLUCOSE DEVICE Routine 11/29/2024 4 :06 AM CDT POCT GLUCOSE DEVICE Routine 11/29/2024 12:05 AM CDT POCT GLUCOSE DEVICE Routine 11/28/2024 8 :40 PM CDT POCT GLUCOSE DEVICE Routine 11/28/2024 3 :24 PM CDT LEFT CORONARY ANGIOGRAPHY Routine 11/28/2024 1:51 PM CDT Abnormal stress test CORONARY OCT, 1ST VESSEL Routine 11/28/2024 1:51 PM CDT Abnormal stress test BENI MAJOR CORONARY Routine 11/28/2024 1: 51 PM CDT Abnormal stress test ECG 12-LEAD STAT 11/28/2024 1:49 PM CDT TRANSTHORACIC ECHO (TTE) LIMITED/FOLLOW UP W LTD DOPPLER/CF W CONTRAST Routine 11/28/2024 10:27 AM CDT POCT GLUCOSE DEVICE Routine 11/28/2024 8 :33 AM CDT POCT GLUCOSE DEVICE Routine 11/28/2024 4 :46 AM CDT EGFR Routine 11/28/2024 12:55 AM CDT LIPID PANEL Routine 11/28/2024 12:55 AM CDT THYROID FUNCTION CASCADE Routine 11/28/2024 12:55 AM CDT CBC WITHOUT DIFFERENTIAL Routine 11/28/2024 12:55 AM CDT BASIC METABOLIC PANEL Routine 11/28/2024 12:55 AM CDT TROPONIN T HIGH-SENSITIVITY 6-HOUR Timed 11/28/2024 12:55 AM CDT TROPONIN T HIGH-SENSITIVITY 4-HR Timed 11/27/2024 11:06 PM CDT POCT GLUCOSE DEVICE Routine 11/27/2024 10:32 PM CDT TROPONIN T HIGH-SENSITIVITY 2-HOUR Timed 11/27/2024 8:40 PM CDT XR CHEST 1 VIEW ED 11/27/2024 7:06 PM CDT EGFR STAT 11/27/2024 6:47 PM CDT DIFFERENTIAL AUTO STAT 11/27/2024 6:4 7 PM CDT TROPONIN T HIGH-SENSITIVITY SERIES (BASELINE, 2HR, 4HR, 6HR) STAT 11/27/2024 6:47 PM CDT COMPREHENSIVE METABOLIC PANEL STAT 11/27/2024 6:47 PM CDT CBC WITH AUTO DIFFERENTIAL STAT 11/27/2024 6:47 PM CDT ECG 12-LEAD STAT 11/27/2024 6:43 PM CDT EGFR Routine 11/12/2024 3:06 PM CDT Stenosis of left carotid artery DIFFERENTIAL AUTO Routine 11/12/2024 3:0 6 PM CDT Stenosis of left carotid artery ANTIBODY SCREEN Routine 11/12/2024 3:06 PM CDT Stenosis of left carotid artery ABO/RH Routine 11/12/2024 3:06 PM CDT Stenosis of left carotid artery VERIFY NOW CLOPIDOGREL Routine 3:06 PM CDT Pre-operative laboratory examination BASIC METABOLIC PANEL Routine 11/12/2024 3:06 PM CDT Stenosis of left carotid artery CBC WITH AUTO DIFFERENTIAL Routine 11/12/2024 3:06 PM CDT Stenosis of left carotid artery PROTIME-INR Routine 11/12/2024 3:06 PM CDT Stenosis of left carotid artery APTT Routine 11/12/2024 3:06 PM CDT Stenosis of left carotid artery TYPE AND SCREEN 14 DAY Routine 3:06 PM CDT Stenosis of left carotid artery CTA HEAD NECK W WO CONTRAST IP Routine 10/30/2024 2:56 PM CDT TRANSTHORACIC ECHO (TTE) COMPLETE W DOPPLER/CF WO CONTRAST Routine 10/30/2024 12:50 PM CDT US CAROTIDS DUPLEX BILATERAL IP Routine 10/30/2024 12:35 PM CDT MRI BRAIN WO CONTRAST IP Routine 10/30/2024 11:45 AM CDT HEMOGLOBIN A1C Routine 10/30/2024 6:02 AM CDT LIPID PANEL Routine 10/30/2024 6:02 AM CDT EGFR Routine 10/30/2024 6:02 AM CDT DIFFERENTIAL AUTO Routine 10/30/2024 6:0 2 AM CDT CBC WITH AUTO DIFFERENTIAL Routine 10/30/2024 6:02 AM CDT COMPREHENSIVE METABOLIC PANEL Routine 10/30/2024 6:02 AM CDT ERYTHROCYTE SEDIMENTATION RATE STAT 10/30/2024 12:28 AM CDT TROPONIN T HIGH-SENSITIVITY 4-HR Timed 10/29/2024 11:03 PM CDT URINALYSIS, MICROSCOPIC ONLY STAT 10/29/2024 8:58 PM CDT URINALYSIS AND REFLEX TO MICROSCOPIC AND CULTURE STAT 10/29/2024 8:58 PM CDT TROPONIN T HIGH-SENSITIVITY 2-HOUR Timed 10/29/2024 8:[address] HEAD WO CONTRAST ED Urgent/IP Urgent 10/29/2024 7:02 PM CDT ECG 12-LEAD STAT 10/29/2024 6:57 PM CDT EGFR STAT 10/29/2024 6:55 PM CDT DIFFERENTIAL AUTO STAT 10/29/2024 6:5 5 PM CDT APTT STAT 10/29/2024 6:55 PM CDT PROTIME-INR STAT 10/29/2024 6:55 PM CDT TROPONIN T HIGH-SENSITIVITY SERIES (BASELINE, 2HR, 4HR, 6HR) STAT 10/29/2024 6:55 PM CDT COMPREHENSIVE METABOLIC PANEL STAT 10/29/2024 6:55 PM CDT CBC WITH AUTO DIFFERENTIAL STAT 10/29/2024 6:55 PM CDT POCT GLUCOSE DEVICE Routine 10/29/2024 6 :47 PM CDT from Last 3 Months Results * Critical Care (12/04/2024 2:15 PM CDT) Narrative LinkRadha, - 12/04/2024 2:15 PM CDT Radha Breaux DO 12/05/2024 9:06 PM Critical Care Performed by: Adilene Song NP Authorized by: Adilene Song NP CRITICAL CARE: Team: [facility] Shift: AM Level of Billing: Subsequent Hospital Visit Level 3 My time spent with this patient was 75 minutes: Critical Provider Statement: I have seen and examined the patient on this day of service. I have reviewed and confirmed the history, physical exam, laboratory, and radiographic data as documented in the ICU note. I have reviewed and discussed my treatment plan with the patient's team and other medical/analytics consultant staff. This time was in addition to and separate from care provided by other practitioners on this day of service. Adilene Song NP IN CLINIC/BEDSIDE ORDERABLES F inal Result * Infection Prevention Marla auris PCR, surveillance Axilla/Groin (12/04/2024 1:13 PM CDT) Pathologist [facility] Marla auris DNA Not Detected Not Detected [facility] Comment: Interpretive Data Testing performed by [facility] using the Catherine charli 6800 Marla auris assay. This assay detects DNA from Marla auris using Real-Time PCR. This assay is laboratory developed and is not cleared by the [place] Food and Drug Administration. The performance characteristics have been verified by the [facility]. Testing performed by: [facility], [address] [place]., [address] Axilla/Groin 12/04/2024 1:13 PM CDT 12/04/2024 5:47 PM CDT Narrative [facility] 12/04/2024 11:25 PM CDT Order placed by [facility] due to ring surveillance. Instant Order Generic Provider LAB MICROBIOLOGY - GENERAL ORDERABLES Final Result [address] [place] [address] [facility] * (ABNORMAL) POCT glucose (12/04/2024 12:14 PM CDT) Pathologist [facility] Glucose, POC 225(H) 70 - 199 mg/dL Blood 12/04/2024 12:1 4 PM CDT 12/04/2024 12:14 PM CDT Mary Norman MD LAB POCT ORDERABLES - DEVICE Fin al Result [address] [place] [address] * US Carotid Duplex Unilateral Left (12/04/2024 8:44 AM CDT) Anatomical Region Laterality Modality Vascular Left Ultrasound 12/04/2024 7:50 AM CDT Narrative 12/05/2024 8:22 AM CDT Carotid Duplex Ultrasound Report Patient Name: MEGAN VELA G : 1950 (74y ) Study Date: 12/04/2024 7:50:08 AM Sex: F Planogrammer: JAVIER TOUSSAINT Location: [id number] Ref Provider: MARY NORMAN Quality: Adequate Order Provider: MARY NORMAN PROCEDURES: Carotid Report: Carotid duplex examination of the extracranial arteries was performed using 2D, color and spectral Doppler. INDICATIONS: Bruit. HISTORY: Left carotid stent 12/03/24. MEASUREMENTS: Left Value LT Prox CCA PSV 88 cm/sec LT Prox CCA EDV 21 cm/sec LT Distal ICA PSV 73 cm/sec LT Distal ICA EDV 25 cm/sec LT ECA Prx PSV 194 cm/sec LT ICA/CCA 0.80 ratio Lt Vert PSV 69 cm/sec STENT MEASUREMENTS: Left Value Location DIST CCA INTO ICA Lt Stent Prx Cahto PSV 79/19 cm/sec Lt Stent Prx Attachment PSV 83/19 cm/sec Lt Stent Mid PSV 77/25 cm/sec Lt Stent Dst Attachment PSV 74/26 cm/sec Lt Stent Dst Cahto PSV 68/25 cm/sec FINDINGS: Lt Common Carotid Artery: Duplex imaging of the left common carotid artery is within normal limits without evidence of atherosclerotic disease. Lt Internal Carotid Artery: The plaque in the left internal carotid artery appears to be heterogeneous and smooth. Atherosclerotic changes of the left internal carotid artery without hemodynamically significant Doppler findings. <50% stenosis S/P LT TCAR. Lt External Carotid Artery: Patent left external carotid artery with evidence of atherosclerotic disease present. Lt Vertebral Artery: The left vertebral artery is patent with antegrade flow. Stent: Stent is located in the distal CCA into ICA. Patent stent without evidence of restenosis. Comments: The stented left Internal Carotid Artery is patent and throughout the stent a maximum peak systolic velocity 83cm/sec, an end diastolic velocity of 19cm/sec, stented ICA/CCA ratio 1.05. CONCLUSIONS: 1. Normal, antegrade flow is noted in the left vertebral artery. 2. Left internal carotid artery stent is patent. ATTESTATION: I have reviewed and interpreted the pertinent images and measurements of this study. I attest to the conclusions in the final report that is provided above. Electronically Signed By: Byron Norman MD 12/05/2024 7:35:08 AM CDT Procedure Note Byron Norman MD - 12/05/2024 Carotid Duplex Ultrasound Report Patient Name: MEGAN VELA G : 1950 (74y ) Study Date: 12/04/2024 7:50:08 AM Sex: F Planogrammer: JAVIER TOUSSAINT Location: [id number] Ref Provider: MARY NORMAN Quality: Adequate Order Provider: MARY [place] PROCEDURES: Carotid Report: Carotid duplex examination of the extracranial arterieswas performed using 2D, color and spectral Doppler. INDICATIONS: Bruit. HISTORY: Left carotid stent 12/03/24. MEASUREMENTS: Left Value LT Prox CCA PSV 88 cm/sec LT Prox CCA EDV 21 cm/sec LT Distal ICA PSV 73 cm/sec LT Distal ICA EDV 25 cm/sec LT ECA Prx PSV 194 cm/sec LT ICA/CCA 0.80 ratio Lt Vert PSV 69 cm/sec STENT MEASUREMENTS: Left Value Location DIST CCA INTO ICA Lt Stent Prx Cahto PSV 79/19 cm/sec Lt Stent Prx Attachment PSV 83/19 cm/sec Lt Stent Mid PSV 77/25 cm/sec Lt Stent Dst Attachment PSV 74/26 cm/sec Lt Stent Dst Cahto PSV 68/25 cm/sec FINDINGS: Lt Common Carotid Artery: Duplex imaging of the left common carotid arteryis within normal limits without evidence of atherosclerotic disease. Lt Internal Carotid Artery: The plaque in the left internal carotid arteryappears to be heterogeneous and smooth. Atherosclerotic changes of the left internalcarotid artery without hemodynamically significant Doppler findings. <50% stenosis S/P LTTCAR. Lt External Carotid Artery: Patent left external carotid artery withevidence of atherosclerotic disease present. Lt Vertebral Artery: The left vertebral artery is patent with antegradeflow. Stent: Stent is located in the distal CCA into ICA. Patent stent withoutevidence of restenosis. Comments: The stented left Internal Carotid Artery is patent andthroughout the stent a maximum peak systolic velocity 83cm/sec, an end diastolic velocity of19cm/sec, stented ICA/CCA ratio 1.05. CONCLUSIONS: 1. Normal, antegrade flow is noted in the left vertebral artery. 2. Left internal carotid artery stent is patent. ATTESTATION: I have reviewed and interpreted the pertinent images and measurements ofthis study. I attest to the conclusions in the final report that is provided above. Electronically Signed By: Byron Norman MD 12/05/2024 7:35:08 AM CDT Mary Norman MD [facility] [place]ED[place] Final Result * (ABNORMAL) POCT glucose (12/04/2024 7:50 AM CDT) Glucose, POC 203(H) 70 - 199 mg/dL Blood 12/04/2024 7:50 AM CDT 12/04/2024 7:50 AM CDT Mary Norman MD LAB POCT ORDERABLES - DEVICE Fin al Result Performing Organization Address [facility] Co de Phone Number SHEELA [address] [place] [address] * eGFR (12/04/2024 4:30 AM CDT) eGFR 69 >=60 mL/min/1. 73 m2 Comment: Interpretive Data Reference Interval Normal >/= 90 mL/min/1.73m2 Mildly decreased* 60 - 89 mL/min/1.73m2 Mildly to moderately decreased 45 - 59 mL/min/1.73m2 Moderately to severely decreased 30 - 44 mL/min/1.73m2 Severely decreased 15 - 29 mL/min/1.73m2 Kidney Failure < 15 mL/min/1.73m2 *Relative to young adult level Estimated glomerular filtration rate is determined by the 2020 CKD-EPI equation recommended by the National Kidney Foundation (A Unifying Approach to GFR Estimation: Recommendations of the NKF-ASK Task Force on Reassessing the Inclusion of Race in Diagnosing Kidney Disease, JASN 2020). The CKD-EPI equation should not be used for patients with unstable renal function and has not been validated in children and those over 70. Current interpretive data was last reviewed 2020. Blood 12/04/2024 4:30 AM CDT 12/04/2024 4:32 AM CDT Pearl Boateng NP LAB BLOOD ORDER CADEN Final Result Performing Organization Address City/[facility]/ZIP Co de Phone Number SHEELA [address] [place] [address] * (ABNORMAL) CBC without differential (12/04/2024 4:30 AM CDT) Pathologist [facility] WBC 8.22 3.80 - 9.90 K/cumm Hgb 11.6(L) 11.9 - 15.5 g/dL [facility] Hct 33.0(L) 35.6 - 45.5 % [facility] Plt 191 150 - 400 K/cumm [facility] MPV 9.6 9.1 - 12.3 fL [facility] RBC 3.34(L) 3.90 - 5.20 M/cumm [facility] MCV 98.8(H) 81.3 - 96.4 fL [facility] MCH 34.7(H) 27.1 - 33.3 pg [facility] MCHC 35.2 32.3 - 35.7 g/dL [facility] RDW CV 12.1 11.1 - 14.9 % [facility] RDW SD 43.7 35.7 - 48.1 fL [facility] NRBC abs 0.00 0.00 - 0.01 K/cumm [facility] Blood 12/04/2024 4:30 AM CDT 12/04/2024 4:32 AM CDT Pearl Boateng NP LAB BLOOD ORDER CADEN Final Result Performing Organization Address [facility] de Phone Number [address] [place] [address] * Phosphorus (12/04/2024 4:30 AM CDT) [facility] Phosphorus, pl 3.8 2.3 - 4.5 mg/dL Blood 12/04/2024 4:30 AM CDT 12/04/2024 4:32 AM CDT Pearl Boateng NP LAB BLOOD ORDER CADEN Final Result Performing Organization Address City/[facility] Co de Phone Number [address] [employer] [place] [address] * Magnesium (12/04/2024 4:30 AM CDT) Pathologist [facility] Magnesium 2.1 1.4 - 2.5 mg/dL Blood 12/04/2024 4:30 AM CDT 12/04/2024 4:32 AM CDT [facility] Ivett Boateng NP LAB BLOOD ORDER CADEN Final Result Performing Organization Address City/[facility]/ZIP Co de Phone Number [address] [place] [address] * (ABNORMAL) Basic metabolic panel (12/04/2024 4:30 AM CDT) [facility] Sodium 135 135 - 145 mmol/L Potassium, pl 4.4 3.3 - 4.9 mmol/L [facility] Chloride 102 97 - 110 mmol/L [facility] CO2 24 22 - 32 mmol/L [facility] Anion gap 9 2 - 15 mmol/L [facility] BUN 20 6 - 25 mg/dL [facility] Creatinine 0.88 0.60 - 1.10 mg/dL [facility] Glucose 232(H) 70 - 199 mg/dL [facility] Comment: Interpretive Data Fasting glucose >/= 126 mg/dl is diagnostic for diabetes. Fasting is defined as no caloric intake for at least 8 hours. Fasting glucose between 100 mg/dl to 125 mg/dl is diagnostic of prediabetes. In a patient with classic symptoms of hyperglycemia or hyperglycemic crisis, a random glucose >/= 200 mg/dl is diagnostic for diabetes. In the absence of unequivocal hyperglycemia, results should be confirmed by repeat testing. The classification and Diagnosis of Diabetes Diabetes Care 2021; 46: S19-S40. Current interpretive data was last revised 2022. Calcium 9.1 8.5 - 10.3 mg/dL [facility] Blood 12/04/2024 4:30 AM CDT 12/04/2024 4:32 AM CDT Pearlarnulfo Boateng NP LAB BLOOD ORDER CADEN Final Result Performing Organization Address City/[facility]/ZIP Co de Phone Number [address] [address] * (ABNORMAL) POCT glucose (12/03/2024 8:48 PM CDT) [facility] Glucose, POC 236(H) 70 - 199 mg/dL Blood 12/03/2024 8:48 PM CDT 12/03/2024 8:48 PM CDT Mary Norman MD LAB POCT ORDERABLES - DEVICE Fin al Result [address] [address] * Infection Prevention MRSA Only (Staphylococcus aureus) PCR Nasal (12/03/2024 5:46 PM CDT) [facility] PCR Scrn, Methicillin resistant Staphylococcus aureus (MRSA) Not Detected Not Detected Comment: Interpretive Data Testing performed using Nucleic Acid Amplification with the 115 network disks Xpert MRSA NxG Assay. This assay detects target DNA from mecA, mecC and the SCCmec insertion site of Staphylococcus aureus using Real-Time PCR and has been cleared by the FDA. Performance characteristics have been verified by the [facility]. Current Interpretive Data was last revised on 2022 Nasal 12/03/2024 5:46 PM CDT 12/03/2024 5:49 PM CDT Pearl Boateng NP LAB MICROBIOLOG Y - GENERAL ORDERABLES Final Result [address] [address] * eGFR (12/03/2024 5:45 PM CDT) [facility] eGFR 76 >=60 mL/min/1. 73 m2 Comment: Interpretive Data Reference Interval Normal >/= 90 mL/min/1.73m2 Mildly decreased* 60 - 89 mL/min/1.73m2 Mildly to moderately decreased 45 - 59 mL/min/1.73m2 Moderately to severely decreased 30 - 44 mL/min/1.73m2 Severely decreased 15 - 29 mL/min/1.73m2 Kidney Failure < 15 mL/min/1.73m2 *Relative to young adult level Estimated glomerular filtration rate is determined by the 2020 CKD-EPI equation recommended by the National Kidney Foundation (A Unifying Approach to GFR Estimation: Recommendations of the NKF-ASK Task Force on Reassessing the Inclusion of Race in Diagnosing Kidney Disease, JASN 2020). The CKD-EPI equation should not be used for patients with unstable renal function and has not been validated in children and those over 70. Current interpretive data was last reviewed 2020. Blood 12/03/2024 5:45 PM CDT 12/03/2024 5:50 PM CDT Pearl Boateng LAB BLOOD ORDER CADEN Final Result Performing Organization Address [facility] de Phone Number [facility] [employer] [place] [address] * (ABNORMAL) Hemoglobin A1c (12/03/2024 5:45 PM CDT) Hgb A1C 7.0(H) 4.0 - 5.6 % Estimated Average Glucose 154 mg/dL SHEELA Comment: The ADA recommends reporting an estimated Average Glucose (eAG) with all Hemoglobin A1c results using the equation derived from a study of 507 normal and diabetic adults. Minority populations were underrepresented and children were not included. (Diabetes Care 31:9148-0945, 2008). The eAG is not equivalent to a fasting glucose. Blood 12/03/2024 5:45 PM CDT 12/03/2024 5:50 PM CDT Narrative SHEELA - 12/03/2024 6:23 PM CDT Indication for repeat testing:->Health monitoring Pearl Boateng NP LAB BLOOD ORDER CADEN Final Result Performing Organization Address [facility] de Phone Number [place] [address] [place] [address] * (ABNORMAL) Basic metabolic panel (12/03/2024 5:45 PM CDT) Pathologist [facility] Sodium 135 135 - 145 mmol/L Potassium, pl 4.3 3.3 - 4.9 mmol/L [facility] Chloride 102 97 - 110 mmol/L [facility] CO2 23 22 - 32 mmol/L [facility] Anion gap 10 2 - 15 mmol/L [facility] BUN 18 6 - 25 mg/dL [facility] Creatinine 0.81 0.60 - 1.10 mg/dL [facility] Glucose 301(H) 70 - 199 mg/dL [facility] Comment: Interpretive Data Fasting glucose >/= 126 mg/dl is diagnostic for diabetes. Fasting is defined as no caloric intake for at least 8 hours. Fasting glucose between 100 mg/dl to 125 mg/dl is diagnostic of prediabetes. In a patient with classic symptoms of hyperglycemia or hyperglycemic crisis, a random glucose >/= 200 mg/dl is diagnostic for diabetes. In the absence of unequivocal hyperglycemia, results should be confirmed by repeat testing. The classification and Diagnosis of Diabetes Diabetes Care 2021; 46: S19-S40. Current interpretive data was last revised 2022. Calcium 9.1 8.5 - 10.3 mg/dL [facility] Blood 12/03/2024 5:45 PM CDT 12/03/2024 5:50 PM CDT us Pearl Boateng NP LAB BLOOD ORDER CADEN Final Result [facility] [address] [facility] [place] [address] * (ABNORMAL) POCT glucose (12/03/2024 5:16 PM CDT) Pathologist [facility] Glucose, POC 305(H) 70 - 199 mg/dL Blood 12/03/2024 5:16 PM CDT 12/03/2024 5:16 PM CDT Mary Norman MD LAB POCT ORDERABLES - DEVICE Fin al Result SHEELA [address] [facility] Department [place] [address] * Critical Care (12/03/2024 10:52 AM CDT) Narrative Radha Breauxn, - 12/03/2024 10:52 AM CDT SaeidRadha Shwetha, DO 12/03/2024 9:11 PM Critical Care Performed by: Pearl Boateng NP Authorized by: Pearl Boateng NP CRITICAL CARE: Team: JEEVAN Shift: AM Level of Billing: Critical Care My time spent with this patient was 60 minutes: Critical Provider Statement: I have seen and examined the patient on this day of service. I have reviewed and confirmed the history, physical exam, laboratory and radiologic data as documented in the signed ICU note. I have reviewed and discussed my treatment plan with the ICU team and other medical/analytics consultant staff, making frequent assessments and decisions regarding this patient's complex medical care. Critical Care time was exclusive of time spent performing separately billed procedures, treating other patients, and teaching. This time was in addition to and separate from critical care provided by other practitioners in my group on this day of service. Critical Care was necessary to treat or prevent imminent or life-threatening deterioration of the following conditions: Post-op TCAR This time was spent by me doing the following: Serial bedside patient exams Active and frequent reassessment of respiratory status and oxygen requirements Glycemic control I spent time reviewing and interpreting data from bedside monitors, laboratory results, and imaging, I spent time discussing the management of this critically ill patient with consultants and the medical staff and I spent time documenting in the medical record us Pearl Boateng DIE MAINTENANCE IN CLINIC/BEDSI DE ORDERABLES Final Result * POCT glucose (12/03/2024 10:12 AM CDT) Glucose, POC 196 70 - 199 mg/dL Blood 12/03/2024 10:1 2 AM CDT 12/03/2024 10:12 AM CDT us Mary Norman MD LAB POCT ORDERABLES - DEVICE Fin al Result Performing Organization Address [facility] de Phone Number SHEELA [address] [place] [address] * FL Fluoroscopy < 1 Hour (12/03/2024 9:46 AM CDT) Narrative LATASHA_[email or web address]_[email or web address] - 12/03/2024 9:47 AM CDT The images from this study are not interpreted by Radiology. Please refer to the physician's procedure / OR operative note. Mary Norman MD IMG FLUOROSCOPY PROCEDURES Final Result Performing Organization Address [facility] de Phone Number [email or web address] * (ABNORMAL) POCT Activated clotting time, low range (12/03/2024 8:42 AM CDT) ACT 269(H) 123 - 168 sec POC Device Number [id number] [facility] Blood 12/03/2024 8:42 AM CDT 12/03/2024 8:42 AM CDT Mary Norman MD LAB POCT ORDERABLES - DEVICE Fin al Result Performing Organization Address [facility] Phone Number [address] [employer] [place] [address] * IA AN PROCEDURE PLACEHOLDER (12/03/2024 8:31 AM CDT) Narrative Adilene Lopez CRNA - 12/03/2024 8:31 AM CDT Adilene Lopez CRNA 12/03/2024 8:31 AM Peripheral IV Catheter Patient location: OR End time: 12/03/2024 7:54 AM Staff: Placed by: RADHA: Adilene Lopez CRNA Preprocedure prep: Prep solution: alcohol PPE: gloves and provider hat/mask PIV line: Laterality: left Site: forearm Catheter size: 18 g Technique: anatomical landmarks and direct visualization Procedure details: occlusive dressing applied and good blood return Number of attempts: 1 Assessment: Events: patient tolerated procedure well with no complications us Tj Rodriguez MD ANESTHESIA ORDERABLES Final Result * IA AN PROCEDURE PLACEHOLDER (12/03/2024 8:14 AM CDT) Narrative Tj Rodriguez MD - 12/03/2024 8:14 AM CDT Tj Rodriguez MD 12/03/2024 8:46 AM Arterial Line Patient location: OR End time: 12/03/2024 7:59 AM Indication: continuous blood pressure monitoring and blood sampling needed Ultrasound assisted: yes Staff: Placed by: Anesthesiologist: Tj Rodriguez MD Procedure prep: Prep solution: alcohol Prep: provider hat/mask, sterile gloves, sterile drape and sterile probe cover Arterial line: Catheter size: 20 gauge Arterial line catheter length: 1 and 1/2 inch. Seldinger technique: yes Laterality: right Site: radial artery Line secured: Tegaderm Results: good waveform and good blood return Number of attempts: 1 Assessment: Events: patient tolerated procedure well with no complications Result [facility] Tj oRdriguez MD ANESTHESIA ORDERABLES Edited Result - Final * IA AN ELECTIVE ENDOTRACHEAL AIRWAY, IA AN PROCEDURE PLACEHOLDER (12/03/2024 8:13 AM CDT) Narrative Adilene Lopez CRNA - 12/03/2024 8:13 AM CDT Adilene Lopez CRNA 12/03/2024 8:13 AM Airway Patient location: OR Urgency: elective Date/time: 12/03/2024 7:51 AM Indications for airway management: anesthesia Difficult airway: no Staff: Placed by: ADULT NEUROPSYCHOLOGIST: Adilene Lopez CRNA Emergent airway documentation: Risks and benefits discussed: yes Consent obtained: yes Consent given by: patient Airway prep: Preoxygenated: yes Patient position: sniffing MILS maintained throughout: yes Mask difficulty assessment: 1 - vent by mask Spontaneous ventilation during airway: absent Sedation level during airway: GA Final airway details: Final airway type: endotracheal airway Tube type: ETT ETT size: 7.0 mm Cuffed: yes Technique used for successful ETT placement: direct laryngoscopy Insertion site: oral Blade type: Javier Blade size: 2 Cormack-Lehane (direct): grade IIb - view of arytenoids or posterior of glottis only Cuff inflated with: air ETT to gums: 21 cm Placement verified by: auscultation and CO2 detection Airway secured with: other Number of attempts: 1no Additional comments: [place] tape Tj Rodriguez MD ANESTHESIA ORDERABLES Final Result * POCT glucose (12/03/2024 6:33 AM CDT) Glucose, POC 194 70 - 199 mg/dL Blood 12/03/2024 6:33 AM CDT 12/03/2024 6:33 AM CDT Mary Norman MD LAB POCT ORDERABLES - DEVICE Fin al Result Performing Organization Address [facility] Co de Phone Number [address] [employer] [place] [address] * ABO/Rh (12/03/2024 6:18 AM CDT) ABO/Rh O Positive Blood 12/03/2024 6:18 AM CDT 12/03/2024 6:36 AM CDT Mary Norman MD LAB BLOOD BANK TEST ORDERABLES F inal Result Performing Organization Address [facility] de Phone Number [address] [employer] [place] [address] * Antibody screen (12/03/2024 6:18 AM CDT) Kuldeep, indirect, Gel Interpretation Negative ABSC Blood 12/03/2024 6:18 AM CDT 12/03/2024 6:36 AM CDT Mary Norman MD LAB BLOOD BANK TEST ORDERABLES F inal Result Performing Organization Address [facility] Co de Phone Number [address] [employer] [place] [address] * (ABNORMAL) POCT glucose (11/29/2024 9:19 AM CDT) Glucose, POC 251(H) 70 - 199 mg/dL Comment:Testing performed by : [address] [address] Blood 11/29/2024 9:19 AM CDT 11/29/2024 9:19 AM CDT Guille Dwyer MD LAB POCT ORDERABLES - DEVICE Final Result Performing Organization Address [facility] de Phone Number [address] [employer] [place] [address] * POCT glucose (11/29/2024 7:56 AM CDT) Glucose, POC 173 70 - 199 mg/dL Comment:Testing performed by : [address] [address] Blood 11/29/2024 7:56 AM CDT 11/29/2024 7:56 AM CDT Guille Dwyer MD LAB POCT ORDERABLES - DEVICE Final Result Performing Organization Address [facility] de Phone Number [address] [employer] [place] [address] * POCT glucose (11/29/2024 4:06 AM CDT) Glucose, POC 183 70 - 199 mg/dL Comment:Testing performed by : [address] [address] Glucose comment 1 RN/MD Notified SHEELA Comment:Testing performed by : [address] [address] Blood 11/29/2024 4:06 AM CDT 11/29/2024 4:06 AM CDT Guille Dwyer MD LAB POCT ORDERABLES - DEVICE Final Result Performing Organization Address [facility] Co de Phone Number [address] [employer] [place] [address] * POCT glucose (11/29/2024 12:05 AM CDT) Glucose, POC 90 70 - 199 mg/dL Comment:Testing performed by : [address] [address] Glucose comment 1 RN/MD Notified SHEELA Comment:Testing performed by : [address] [address] Blood 11/29/2024 12:0 5 AM CDT 11/29/2024 12:05 AM CDT Guille Dwyer MD LAB POCT ORDERABLES - DEVICE Final Result Performing Organization Address [facility] Co de Phone Number [address] [employer] [place] [address] * (ABNORMAL) POCT glucose (11/28/2024 8:40 PM CDT) Glucose, POC 253(H) 70 - 199 mg/dL Comment:Testing performed by : [address] [address] Blood 11/28/2024 8:40 PM CDT 11/28/2024 8:40 PM CDT Guille Dwyer MD LAB POCT ORDERABLES - DEVICE Final Result Performing Organization Address [facility] Co de Phone Number [address] [employer] [place] [address] * POCT glucose (11/28/2024 3:24 PM CDT) Glucose, POC 163 70 - 199 mg/dL Comment:Testing performed by : [address] [address] Blood 11/28/2024 3:24 PM CDT 11/28/2024 3:24 PM CDT us Guille Dwyer MD LAB POCT ORDERABLES - DEVICE Final Result SHEELA [facility] [address] [facility] [place] [address] * BENI MAJOR CORONARY, CORONARY OCT, 1ST VESSEL, LEFT CORONARY ANGIOGRAPHY (11/28/2024 1:51 PM CDT) Anatomical Region Laterality Modality X-Ray Angiograph y Addenda Addendum by John Dougherty MD on 11/29/2024 1:20 PM CDT CORONARY ANGIOGRAM AND PERCUTANEOUS CORONARY INTERVENTION REPORT Patient: Megan Vela : 1950 Date of Service: 11/28/2024 Attending Diamond Wheel Molder: John Dougherty MD Referring physician: Sandro Wilson MD PATIENT CLINICAL PROFILE: Megan Vela is a 74 y.o. female with a history of multiple coronary risk factors. She is being worked up for a left carotid stenting procedure. She recently had a SPECT in office that was abnormal demonstrating inferior wall ischemia. She has been having some possible anginal equivalent symptoms and presented to the ER. She is here now for coronary angiography and possible intervention. PROCEDURE: The risks, benefits and alternatives of the procedures and moderate sedation were explained to the patient and informed consent was obtained. The patient was brought to the aquatic life laborer and placed on the table. Right radial site and bilateral groins were prepped and draped in the usual sterile fashion. The right radial artery site was infiltrated with 2 % lidocaine. The vessel was accessed using a Cook needle and the modified Seldinger technique and a 6 Fr slender sheath was advanced over the wire into the vessel. Unfractionated heparin was administered to a goal ACT of 250-300 seconds and maintained at this level throughout the procedure. Left Coronary Artery Angiogram was performed using a tiger Catheter. Right Coronary Artery Angiogram was performed using a tiger Catheter. Coronary Intervention performed on lesion #1 proximal, mid, and distal right coronary artery At the end of the procedure, hemostasis was obtained via TR band Patient was transferred to holding area in stable condition. RESULTS: Coronary Arteriography: Left main coronary: Normal Left Anterior Decending: There is mild narrowing in the proximal vessel. There is a moderate-sized diagonal branch with roughly 80% proximal to mid narrowing. Left Circumflex: The proximal circumflex and 1st obtuse marginal branch have mild disease. Distal to this there is a focal area of narrowing of about 80% extending into the 2nd obtuse marginal branch. Right Coronary Artery: Right Dominant System. Critical narrowing of roughly 95% proximally with a a diffuse area of disease extending through the distal vessel. CORONARY INTERVENTION REPORT: Decision was made to intervene on the right coronary artery. This was engaged using a Pina right 4 guide catheter. A christine blue wire was advanced to the distal vessel. Angioplasty was performed using a 2.75 x 20 noncompliant balloon throughout the diseased area. Intravascular ultrasound was performed for vessel assessment and stent sizing. Based on this, a 3.0 x 38 tim drug-eluting stent was advanced distally and deployed. In partially overlapping fashion proximally, a 3.5 x 38 tim drug-eluting stent was advanced and deployed. The stent balloon was then used to post dilate the overlap. At the most proximal portion of the vessel extending nearly to the ostium, a 3.5 x 15 tim drug-eluting stent was used. This was once again used to post dilate the overlap. This yielded a good final angiographic result throughout the vessel. COMPLICATIONS: none Estimated Blood Loss: 10 cc Specimens: none DIAGNOSTIC IMPRESSION: Diffuse narrowing in the right coronary artery up to 95% in severity status post placement of 3 overlapping tim drug-eluting stents. Focal 80% lesions in the obtuse marginal and diagonal as described. THERAPEUTIC RECOMMENDATIONS: Continue aspirin and Plavix. As noted, there is still unrevascularized disease in the obtuse marginal and diagonal. I do not think that these will prevent safe completion of her carotid procedure. Following recovery from this, we will decide on revascularization depending on her clinical situation. I discussed these findings and decision making with Dr. Wilson her primary record systems analyst as well as Dr. Norman her vascular surgeon. Explained to her that it is important that she meticulously control her risk factors in order to prevent progression of her coronary disease and other atherosclerotic disease. us John Dougherty MD CV CARDIAC CATH PROCEDURE S Edited Result - Final * ECG 12 lead (11/28/2024 1:49 PM CDT) Ventricular Rate EKG/Min 61 BPM [facility] Atrial Rate 61 BPM [facility] IA-Interval (MSEC) 146 ms [facility] QRS-Interval (MSEC) 90 ms [facility] QT-Interval (MSEC) 470 ms [facility] QTc 473 ms [facility] P Cascade 70 degrees [facility] R Cascade 80 degrees [facility] T Cascade 85 degrees [facility] Diagnosis Normal sinus rhythm Nonspecific ST and T wave abnormality Prolonged QT Abnormal ECG When compared with ECG of 27-NOV-2024 18:43 Confirmed by MD YOLANDA, DALLAS ([id number]) on 11/29/2024 11:57:44 AM [facility] 11/28/2024 1:49 PM CDT 11/29/2024 11:57 AM CDT us John Dougherty MD ECG ORDERABLES Final Res ult [facility] * TRANSTHORACIC ECHO (TTE) LIMITED/FOLLOW UP W LTD DOPPLER/CF W CONTRAST (11/28/2024 10:27 AM CDT) Pathologist [facility] EF Mod BP 68 % CONS SCIMAGE Anatomical Region Laterality Modality Ultrasound 11/28/2024 9:54 AM CDT Narrative 11/28/2024 4:47 PM CDT Transthoracic Echocardiographic Report Patient Name: MEGAN VELA G : 1950 (74y ) Sex: F Study Date: 11/28/2024 09:54:32 AM Ht(Inch): 62 Wt(Lb): 135.01 BSA: 1.62 Planogrammer: Alicia Varghese RDCS Location: [place] [address] Order Provider: KEVEN PEREIRA Heart Rate: 60 BMI: 24.69 BP: 142 / 73 Ref Provider: KEVEN PEREIRA PROCEDURES: Echocardiographic Report: ([id number]) Limited Echocardiography with contrast, transthoracic, 2D, includes M-mode recording,color and spectral doppler when performed, limited study. Contrast: A contrast injection of Definity was performed to improve assessment of LV function. Definity Lot Number: [id number]. INDICATIONS: Chest pain. FINDINGS: Left Ventricle: Normal left ventricular cavity size. Normal Left ventricular wall thickness. The Ejection Fraction (Molina's) is measured at 68 %. Diastolic Function Left ventricular diastolic parameters are consistent with Grade I diastolic dysfunction (normal LA pressure). Right Ventricle: Normal right ventricular size. Normal right ventricular systolic function. Left Atrium: The left atrium is normal in size. Right Atrium: The right atrium is normal in size. Atrial Septum: No shunt by color Doppler. Mitral Valve: Normal mitral valve leaflet structure. No mitral regurgitation seen. No mitral valve stenosis. Aortic Valve: Trileaflet aortic valve. No aortic regurgitation seen. No aortic valve stenosis. The mean transaortic gradient is 3 mmHg. The aortic valve area by the continuity equation (using VTI) is 2.35 cm2. Tricuspid Valve: The tricuspid valve demonstrates normal leaflet structure. No tricuspid regurgitation seen. No tricuspid valve stenosis. Pulmonic Valve: No evidence of pulmonic regurgitation. Pericardium: Normal pericardium without evidence of pericardial effusion. Aorta: Normal aortic root. The aortic sinus is normal in size. The ascending aorta is normal in size. IVC: IVC is normal in size. CONCLUSIONS: 1. Normal left ventricular cavity size. Normal Left ventricular wall thickness. The Ejection Fraction (Molina's) is measured at 68 %. Diastolic Function Left ventricular diastolic parameters are consistent with Grade I diastolic dysfunction (normal LA pressure). 2. Normal right ventricular size. Normal right ventricular systolic function. 3. IVC is normal in size. MEASUREMENTS: 2D/MM Value Range Doppler Value LVIDd 2D 4.20 cm [ 3.50 - 5.70 ] AV Peak Enrico 1.15 m/s LVIDs 2D 2.50 cm [ 3.10 - 4.60 ] AV Peak PG 5.29 mmHg IVSd 2D 1.00 cm [ 0.60 - 1.20 ] AV Mean PG 3.00 mmHg LVPWd 2D 1.00 cm [ 0.60 - 1.10 ] AV VTI 26.10 cm LV Thickness Ratio 1.00 LVOT Peak Enrico 0.91 m/s LV Mass 2D 139.62 g LVOT Peak PG 3.31 mmHg LV Mass Index 2D 86.32 g/m2 LVOT Mean PG 2.00 mmHg RWT 0.48 LVOT VTI 21.60 cm EDV Mod BP 71.10 ml [ 46.00 - 106.00 ] LVOT Diam 1.90 cm LV EDV Index 43.96 ml/m2 SV LVOT 61.00 cm3 ESV Mod BP 22.70 ml [ 14.00 - 42.00 ] MARIA C VTI 2.35 cm2 EF Mod BP 68 % [ 54 - 74 ] MARIA C Vmax 2.24 cm2 LA Dimension 2D 3.40 cm [ 1.90 - 4.00 ] LVOT/AV VTI 0.83 - Dimensionless index (DVI) RVDd 2D 3.20 cm [ 2.00 - 3.00 ] TR Peak Enrico 2.63 m/s TR Peak PG 27.7 mmHg - ATTESTATION: I have reviewed and interpreted the pertinent images and measurements of this study. I attest to the conclusions in the final report that is provided above. DISCLAIMER: The study images and the final report will be retained in the patient chart by the [facility] for the legally required time period. This chart constitutes the legal record of any testing performed. Electronically Signed By: John Dougherty MD 11/28/2024 4:46:54 PM CDT Procedure Note John Dougherty MD - 11/28/2024 Transthoracic Echocardiographic Report Patient Name: MEGAN VELA G : 1950 (74y ) Sex: F Study Date: 11/28/2024 09:54:32 AM Ht(Inch): 62 Wt(Lb): 135.01 BSA: 1.62 Planogrammer: Alicia Varghese RDCS Location: [place] [address] Order Provider: KEVEN PEREIRA Heart Rate: 60 BMI: 24.69 BP: 142 / 73 Ref Provider:KEVEN PEREIRA PROCEDURES: Echocardiographic Report: ([id number]) Limited Echocardiography with contrast,transthoracic, 2D, includes M-mode recording,color and spectral doppler when performed,limited study. Contrast: A contrast injection of Definity was performed to improveassessment of LV function. Definity Lot Number: [id number]. INDICATIONS: Chest pain. FINDINGS: Left Ventricle: Normal left ventricular cavity size. Normal Leftventricular wall thickness. The Ejection Fraction (Molina's) is measured at 68 %.Diastolic Function Left ventricular diastolic parameters are consistent with Grade I diastolicdysfunction (normal LA pressure). Right Ventricle: Normal right ventricular size. Normal right ventricularsystolic function. Left Atrium: The left atrium is normal in size. Right Atrium: The right atrium is normal in size. Atrial Septum: No shunt by color Doppler. Mitral Valve: Normal mitral valve leaflet structure. No mitralregurgitation seen. No mitral valve stenosis. Aortic Valve: Trileaflet aortic valve. No aortic regurgitation seen. Noaortic valve stenosis. The mean transaortic gradient is 3 mmHg. The aortic valve areaby the continuity equation (using VTI) is 2.35 cm2. Tricuspid Valve: The tricuspid valve demonstrates normal leafletstructure. No tricuspid regurgitation seen. No tricuspid valve stenosis. Pulmonic Valve: No evidence of pulmonic regurgitation. Pericardium: Normal pericardium without evidence of pericardialeffusion. Aorta: Normal aortic root. The aortic sinus is normal in size. Theascending aorta is normal in size. IVC: IVC is normal in size. CONCLUSIONS: 1. Normal left ventricular cavity size. Normal Left ventricular wallthickness. The Ejection Fraction (Molina's) is measured at 68 %. Diastolic Function Leftventricular diastolic parameters are consistent with Grade I diastolic dysfunction(normal LA pressure). 2. Normal right ventricular size. Normal right ventricular systolicfunction. 3. IVC is normal in size. MEASUREMENTS: 2D/MM Value Range DopplerValue LVIDd 2D 4.20 cm [ 3.50 - 5.70 ] AV Peak Vel1.15 m/s LVIDs 2D 2.50 cm [ 3.10 - 4.60 ] AV Peak PG5.29 mmHg IVSd 2D 1.00 cm [ 0.60 - 1.20 ] AV Mean PG3.00 mmHg LVPWd 2D 1.00 cm [ 0.60 - 1.10 ] AV VTI26.10 cm LV Thickness Ratio 1.00 LVOT Peak Vel0.91 m/s LV Mass 2D 139.62 g LVOT Peak PG3.31 mmHg LV Mass Index 2D 86.32 g/m2 LVOT Mean PG2.00 mmHg RWT 0.48 LVOT VTI21.60 cm EDV Mod BP 71.10 ml [ 46.00 - 106.00 ] LVOT Diam1.90 cm LV EDV Index 43.96 ml/m2 SV LVOT61.00 cm3 ESV Mod BP 22.70 ml [ 14.00 - 42.00 ] MARIA C VTI2.35 cm2 EF Mod BP 68 % [ 54 - 74 ] MARIA C Vmax2.24 cm2 LA Dimension 2D 3.40 cm [ 1.90 - 4.00 ] LVOT/AV VTI0.83 - Dimensionless index (DVI) RVDd 2D 3.20 cm [ 2.00 - 3.00 ] TR Peak Vel2.63 m/s TR Peak PG 27.7 mmHg - ATTESTATION: I have reviewed and interpreted the pertinent images and measurements ofthis study. I attest to the conclusions in the final report that is provided above. DISCLAIMER: The study images and the final report will be retained in the patientchart by the [facility] for the legally required time period. This chart constitutesthe legal record of any testing performed. Electronically Signed By: John Dougherty MD 11/28/2024 4:46:54 PM CDT John Dougherty MD CV ECHO PROCEDURES Final Result * POCT glucose (11/28/2024 8:33 AM CDT) Glucose, POC 195 70 - 199 mg/dL Comment:Testing performed by : [address] [address] Blood 11/28/2024 8:33 AM CDT 11/28/2024 8:33 AM CDT Guille Dwyer MD LAB POCT ORDERABLES - DEVICE Final Result Performing Organization Address [facility] Co de Phone Number [address] [employer] [place] [address] * POCT glucose (11/28/2024 4:46 AM CDT) Glucose, POC 159 70 - 199 mg/dL Comment:Testing performed by : [address] [address] Glucose comment 1 RN/MD Notified [facility] Comment:Testing performed by : [address] [address] Blood 11/28/2024 4:46 AM CDT 11/28/2024 4:46 AM CDT Keven Pereira MD LAB POCT ORDERA BLES - DEVICE Final Result Performing Organization Address City/[facility] Co de Phone Number [address] [place] [employer] [place] [address] * Troponin T high-sensitivity 6-hour (11/28/2024 12:55 AM CDT) Trop T hs 9 <=14 ng/L Comment: Interpretive Data For further hscTnT resources including the diagnostic algorithm and an aid in interpretation, copy and paste this link: https://nrl.testcatalog.org/show/hsTrop Current Interpretive Data last revised 2019. Testing performed by: [facility], [address] [place] [address]., [address] Trop T hs delta 0 ng/L SHEELA PERDOMO Comment:Testing performed by : [facility], [address] [place] [address], [place]., [address] Trop T hs interp Insignificant SHEELA Comment:Testing performed by : [facility], [address] [place] [address]., [address] Blood 11/28/2024 12:5 5 AM CDT 11/28/2024 1:31 AM CDT Gomez Mack MD LAB BLOOD ORDERABLES F inal Result SHEELA [address] [facility] of [facility] [place], [place] [id number] * eGFR (11/28/2024 12:55 AM CDT) eGFR 73 >=60 mL/min/1. 73 m2 Comment: Interpretive Data Reference Interval Normal >/= 90 mL/min/1.73m2 Mildly decreased* 60 - 89 mL/min/1.73m2 Mildly to moderately decreased 45 - 59 mL/min/1.73m2 Moderately to severely decreased 30 - 44 mL/min/1.73m2 Severely decreased 15 - 29 mL/min/1.73m2 Kidney Failure < 15 mL/min/1.73m2 *Relative to young adult level Estimated glomerular filtration rate is determined by the 2020 CKD-EPI equation recommended by the National Kidney Foundation (A Unifying Approach to GFR Estimation: Recommendations of the NKF-ASK Task Force on Reassessing the Inclusion of Race in Diagnosing Kidney Disease, JASN 2020). The CKD-EPI equation should not be used for patients with unstable renal function and has not been validated in children and those over 70. Current interpretive data was last reviewed 2020. Testing performed by: [address] [address] Blood 11/28/2024 12:5 5 AM CDT 11/28/2024 1:31 AM CDT Keven Pereira MD LAB BLOOD ORDER CADEN Final Result Performing Organization Address City/[facility] Co de Phone Number [address] [place] [employer] [place] [address] * Thyroid Function [place] (11/28/2024 12:55 AM CDT) Pathologist [facility] TSH 1.06 0.30 - 4.20 mcIUnit/mL Comment:Testing performed by : [address] [address] Blood 11/28/2024 12:5 5 AM CDT 11/28/2024 1:31 AM CDT Keven Pereira MD LAB BLOOD ORDER CADEN Final Result Performing Organization Address [facility] de Phone Number [address] [address] * (ABNORMAL) CBC without differential (11/28/2024 12:55 AM CDT) Pathologist [facility] WBC 5.75 3.80 - 9.90 K/cumm Comment:Testing performed by : [address] [address] Hgb 12.1 11.9 - 15.5 g/dL SHEELA PERDOMO Comment:Testing performed by : [address] [address] Hct 34.3(L) 35.6 - 45.5 % SHEELA PERDOMO Comment:Testing performed by : [address] [address] Plt 196 150 - 400 K/cumm SHEELA PERDOMO Comment:Testing performed by : [address] [address] MPV 9.6 9.1 - 12.3 fL SHEELA Comment:Testing performed by : [address] [address] RBC 3.45(L) 3.90 - 5.20 M/cumm SHEELA Comment:Testing performed by : [address] [address] MCV 99.4(H) 81.3 - 96.4 fL SHEELA Comment:Testing performed by : [address] [address] MCH 35.1(H) 27.1 - 33.3 pg SHEELA Comment:Testing performed by : [address] [address] MCHC 35.3 32.3 - 35.7 g/dL SHEELA Comment:Testing performed by : [address], [address] RDW CV 12.2 11.1 - 14.9 % SHEELA Comment:Testing performed by : [address], [address] RDW SD 44.2 35.7 - 48.1 fL SHEELA Comment:Testing performed by : [address], [address] NRBC abs 0.00 0.00 - 0.01 K/cumm SHEELA Comment:Testing performed by : [address], [address] Blood 11/28/2024 12:5 5 AM CDT 11/28/2024 1:33 AM CDT Keven Pereira MD LAB BLOOD ORDER CADEN Final Result SHEELA [address] [facility] [place], [place] [id number] * (ABNORMAL) Lipid panel (11/28/2024 12:55 AM CDT) [facility] Signature Cholesterol 189 30 - 199 mg/dL Comment: Interpretive Data Ages < or = 19 years Acceptable: <170 mg/dL Borderline high: 170-199 mg/dL High: >or= 200 mg/dL Ages > or = 20 years Desirable: <200 mg/dL Borderline high: 200-239 mg/dL High: >or= 240 mg/dL Literature References: 1. Expert Panel on Integrated Guidelines for Cardiovascular Health and Risk Reduction in Children and Adolescents. Pediatrics 2011;128:S213 2. NCEP Expert Panel. Circulation 2004;110:227 Current Interpretive Data was last revised on 2017. Testing performed by: [address] [address] Triglycerides 211(H) <=149 mg/dL SHEELA Comment: Interpretive Data Ages < or = 9 years Acceptable: <75 mg/dL Borderline high: 75-99 mg/dL High: >or= 100 mg/dL Ages 10 to 20 years Acceptable: <90 mg/dL Borderline high: 90-129 mg/dL High: >or= 130 mg/dL Ages > or = 20 years Desirable: <150 mg/dL Borderline high: 150-199 mg/dL High: 200-499 mg/dL Very high: >or= 499 mg/dL Literature References: 1. Expert Panel on Integrated Guidelines for Cardiovascular Health and Risk Reduction in Children and Adolescents. Pediatrics 2011;128:S213 2. NCEP Expert Panel. Circulation 2004;110:227 Current Interpretive Data was last revised on 2017. Testing performed by: [address] [address] HDL 41 >=40 mg/dL SHEELA Comment: Interpretive Data Ages < or = 19 years Acceptable: >45 mg/dL Borderline low: 40-45 mg/dL Low: <40 mg/dL Ages > or = 20 years Desirable: >or= 60 mg/dL Low: <40 mg/dL Literature References: 1. Expert Panel on Integrated Guidelines for Cardiovascular Health and Risk Reduction in Children and Adolescents. Pediatrics 2011;128:S213 2. NCEP Expert Panel. Circulation 2004;110:227 Current Interpretive Data was last revised on 2017. Testing performed by: [address] [address] LDL, calculated 111 <=129 mg/dL SHEELA Comment: Interpretive Data Ages < or = 19 years Acceptable: <110 mg/dL Borderline high: 110-129 mg/dL High: >or= 130 mg/dL Ages > or = 20 years Optimal: <100 mg/dL Near optimal: 100-129 mg/dL Borderline high: 130-159 mg/dL High: >160 mg/dL Calculated using the Raúl LDL-C estimating equation. This equation was implemented on 2023. Prior to this date LDL-C was estimated using the Friedewald equation. Literature References: 1. Expert Panel on Integrated Guidelines for Cardiovascular Health and Risk Reduction in Children and Adolescents. Pediatrics 2011;128:S213 2. NCEP Expert Panel. Circulation 2004;110:227 3. Raúl Uribe et al. BRIAN Cardiol. 2020 June 14;5(5):540-548. doi: 10.1001/jamacardio.2020.0013 Current Interpretive Data was last revised on 2023. Testing performed by: [address] [address] Non-HDL Cholesterol 148 mg/dL SHEELA Comment: Interpretive Data Ages < or = 19 years Acceptable: <120 mg/dL Borderline high: 120-144 mg/dL High: >145 mg/dL Ages > or = 20 years When triglycerides are >200 mg/dL, Non-HDL cholesterol is a secondary target of therapy with treatment goals that are 30 mg/dL greater than the LDL cholesterol target. Literature References: 1. Expert Panel on Integrated Guidelines for Cardiovascular Health and Risk Reduction in Children and Adolescents. Pediatrics 2011;128:S213 2. NCEP Expert Panel. Circulation 2004;110:227 Current Interpretive Data was last revised on 2017. Testing performed by: [address] [address] Chol/HDL ratio 5 [facility] Comment:Testing performed by : [address] [address] Blood 11/28/2024 12:5 5 AM CDT 11/28/2024 1:31 AM CDT Keven Pereira MD LAB BLOOD ORDER CADEN Final Result SHEELA [address] [facility] [place] [address] * Basic metabolic panel (11/28/2024 12:55 AM CDT) Sodium 138 135 - 145 mmol/L Comment:Testing performed by : [address] [address] Potassium, pl 3.8 3.3 - 4.9 mmol/L SHEELA Comment:Testing performed by : [address], [place]., [address] Chloride 102 97 - 110 mmol/L SHEELA Comment:Testing performed by : [address] [address] CO2 25 22 - 32 mmol/L SHEELA Comment:Testing performed by : [address], [place]., [address] Anion gap 11 2 - 15 mmol/L SHEELA Comment:Testing performed by : [address] [address] BUN 24 6 - 25 mg/dL SHEELA Comment:Testing performed by : [address] [address] Creatinine 0.84 0.60 - 1.10 mg/dL SHEELA Comment:Testing performed by : [address] [address] Glucose 193 70 - 199 mg/dL [facility] Comment: Interpretive Data Fasting glucose >/= 126 mg/dl is diagnostic for diabetes. Fasting is defined as no caloric intake for at least 8 hours. Fasting glucose between 100 mg/dl to 125 mg/dl is diagnostic of prediabetes. In a patient with classic symptoms of hyperglycemia or hyperglycemic crisis, a random glucose >/= 200 mg/dl is diagnostic for diabetes. In the absence of unequivocal hyperglycemia, results should be confirmed by repeat testing. The classification and Diagnosis of Diabetes Diabetes Care 2021; 46: S19-S40. Current interpretive data was last revised 2022. Testing performed by: [address], [place]., [address] Calcium 9.8 8.5 - 10.3 mg/dL SHEELA Comment:Testing performed by : [address] [address] Blood 11/28/2024 12:5 5 AM CDT 11/28/2024 1:31 AM CDT Keven Pereira MD LAB BLOOD ORDER CADEN Final Result Performing Organization Address City/[facility]/ZIP Co de Phone Number SHEELA [address] [place] [address] * Troponin T high-sensitivity 4-hour (11/27/2024 11:06 PM CDT) Pathologist [facility] Trop T hs 9 <=14 ng/L Comment: Interpretive Data For further hscTnT resources including the diagnostic algorithm and an aid in interpretation, copy and paste this link: https://nrl.testcatalog.org/show/hsTrop Current Interpretive Data last revised 2019. Testing performed by: [address] [address] Trop T hs delta 0 ng/L SHEELA Comment:Testing performed by : [address] [address] Trop T hs interp Insignificant SHEELA Comment:Testing performed by : [address] [address] Blood 11/27/2024 11:0 6 PM CDT 11/27/2024 11:29 PM CDT us Gomez Mack MD LAB BLOOD ORDERABLES F inal Result Performing Organization Address City/[facility]/ZIP Co de Phone Number [address] [place] [address] * (ABNORMAL) POCT glucose (11/27/2024 10:32 PM CDT) Glucose, POC 241(H) 70 - 199 mg/dL Comment:Testing performed by : [address] [address] Glucose comment 1 RN/MD Notified SHEELA Comment:Testing performed by : [facility], [address] [place] [address]., [address] Blood 11/27/2024 10:3 2 PM CDT 11/27/2024 10:32 PM CDT Keven Pereira MD LAB POCT ORDERA BLES - DEVICE Final Result Performing Organization Address City/[facility] Co de Phone Number SHEELA [address] [facility] [place] [address] * Troponin T high-sensitivity 2-hour (11/27/2024 8:40 PM CDT) Trop T hs 8 <=14 ng/L Comment: Interpretive Data For further hscTnT resources including the diagnostic algorithm and an aid in interpretation, copy and paste this link: https://nrl.testcatalog.org/show/hsTrop Current Interpretive Data last revised 2019. Testing performed by: [facility], [address] [place] [address]., [address] Trop T hs delta -1 ng/L SHEELA Comment:Testing performed by : [address] [address] Trop T hs interp Insignificant SHEELA Comment:Testing performed by : [address] [address] Blood 11/27/2024 8:40 PM CDT 11/27/2024 8:43 PM CDT us Gomez Mack MD LAB BLOOD ORDERABLES F inal Result Performing Organization Address [facility] Co de Phone Number SHEELA [address] [facility] [place] [address] * XR Chest 1 Vw Portable (If patient hemodynamically UNstable or UNable to ambulate) (11/27/2024 7:06PM CDT) Anatomical Region Laterality Modality Body, Chest N/A Computed Radiogr aphy 11/27/2024 9:06 PM CDT Narrative 11/27/2024 9:07 PM CDT EXAM DESCRIPTION: XR CHEST 1 VIEW REASON FOR STUDY: chest pain Pt to ed via triage with c/o headache started tonight that she thought was from the nuclear study. Pt states that she received a call from the record systems analyst today and was told to come to the ed because based on her outpatient stress test she had today she needs to be admitted for a cardiac cath. TECHNIQUE: 1 radiographic view(s) of the chest. COMPARISON: None FINDINGS: LUNGS: The lungs are clear. No pleural effusion. No pneumothorax. HEART/MEDIASTINUM: Cardiac silhouette normal in size. Mediastinal and hilar contours appear normal. LINES/TUBES: None. BONES: No acute osseous abnormality. IMPRESSION: No acute cardiopulmonary abnormality. THIS IS AN ELECTRONICALLY VERIFIED FINAL REPORT 11/27/2024 9:07 PM - Electronically signed by Mich Webster M.D. KT: BRANDON Report ID: [id number] Reading Location: [place] [address] Procedure Note Mich Webster MD - 11/27/2024 EXAM DESCRIPTION: XR CHEST 1 VIEW REASON FOR STUDY: chest pain Pt to ed via triage with c/o headache started tonight that she thought was from the nuclear study. Pt states that she received a call from the record systems analyst today and was told to come to the ed because based on her outpatient stress test she had today she needs to be admitted for acardiac cath. TECHNIQUE: 1 radiographic view(s) of the chest. COMPARISON: None FINDINGS: LUNGS: The lungs are clear. No pleural effusion. Nopneumothorax. HEART/MEDIASTINUM: Cardiac silhouette normal in size. Mediastinal andhilar contours appear normal. LINES/TUBES: None. BONES: No acute osseous abnormality. IMPRESSION: No acute cardiopulmonary abnormality. THIS IS AN ELECTRONICALLY VERIFIED FINAL REPORT 11/27/2024 9:07 PM - Electronically signed by Mich Webster M.D. KT: BRANDON Report ID: [id number] Reading Location: [id number] us Gomez Mack MD IMG XR PROCEDURES Guera l Result * Troponin T high-sensitivity series (baseline, 2hr, 4hr, 6hr) (11/27/2024 6:47 PM CDT) Trop T hs 9 <=14 ng/L Comment: Interpretive Data For further hscTnT resources including the diagnostic algorithm and an aid in interpretation, copy and paste this link: [email or web address].testcatalog.org/[email or web address] Current Interpretive Data last revised 2019. Testing performed by: [facility], [address] [place] [address]., [address] Blood 11/27/2024 6:47 PM CDT 11/27/2024 7:01 PM CDT Gomez Mack MD LAB BLOOD ORDERABLES F inal Result [facility] [address] [facility] [place] [address] * eGFR (11/27/2024 6:47 PM CDT) eGFR 78 >=60 mL/min/1. 73 m2 Comment: Interpretive Data Reference Interval Normal >/= 90 mL/min/1.73m2 Mildly decreased* 60 - 89 mL/min/1.73m2 Mildly to moderately decreased 45 - 59 mL/min/1.73m2 Moderately to severely decreased 30 - 44 mL/min/1.73m2 Severely decreased 15 - 29 mL/min/1.73m2 Kidney Failure < 15 mL/min/1.73m2 *Relative to young adult level Estimated glomerular filtration rate is determined by the 2020 CKD-EPI equation recommended by the National Kidney Foundation (A Unifying Approach to GFR Estimation: Recommendations of the NKF-ASK Task Force on Reassessing the Inclusion of Race in Diagnosing Kidney Disease, JASN 2020). The CKD-EPI equation should not be used for patients with unstable renal function and has not been validated in children and those over 70. Current interpretive data was last reviewed 2020. Testing performed by: [address] [address] Blood 11/27/2024 6:47 PM CDT 11/27/2024 7:01 PM CDT us Gomez Mack MD LAB BLOOD ORDERABLES F inal Result [facility] [address] [facility] [place] [address] * Differential, auto (11/27/2024 6:47 PM CDT) Neutrophil abs 3.21 1.50 - 6.50 K/cumm Comment:Testing performed by : [address] [address] Imm gran abs 0.02 0.00 - 0.10 K/cumm SHEELA Comment:Testing performed by : [address] [address] Lymphocyte abs 2.05 0.80 - 3.30 K/cumm SHEELA Comment:Testing performed by : [address] [address] Monocyte abs 0.74 0.20 - 0.80 K/cumm SHEELA Comment:Testing performed by : [address] [address] Eosinophil abs 0.28 0.00 - 0.50 K/cumm SHEELA Comment:Testing performed by : [address] [address] Basophil abs 0.06 0.00 - 0.10 K/cumm SHEELA Comment:Testing performed by : [address] [address] Neutrophil pct 50.6 % SHEELA Comment: Interpretive Data Percent cell count reference ranges are not reported, since discordance with absolute values may lead to misinterpretation of CBC data. Current Interpretive Data was last revised on 2017. Testing performed by: [address] [place]., [address] Imm gran pct 0.3 % [facility] Comment: Interpretive Data Percent cell count reference ranges are not reported, since discordance with absolute values may lead to misinterpretation of CBC data. Current Interpretive Data was last revised on 2017. Testing performed by: [address] [address] Lymphocyte pct 32.2 % [facility] Comment: Interpretive Data Percent cell count reference ranges are not reported, since discordance with absolute values may lead to misinterpretation of CBC data. Current Interpretive Data was last revised on 2017. Testing performed by: [address] [address] Monocyte pct 11.6 % [facility] Comment: Interpretive Data Percent cell count reference ranges are not reported, since discordance with absolute values may lead to misinterpretation of CBC data. Current Interpretive Data was last revised on 2017. Testing performed by: [address] [address] Eosinophil pct 4.4 % [facility] Comment: Interpretive Data Percent cell count reference ranges are not reported, since discordance with absolute values may lead to misinterpretation of CBC data. Current Interpretive Data was last revised on 2017. Testing performed by: [address] [address] Basophil pct 0.9 % [facility] Comment: Interpretive Data Percent cell count reference ranges are not reported, since discordance with absolute values may lead to misinterpretation of CBC data. Current Interpretive Data was last revised on 2017. Testing performed by: [address] [address] Blood 11/27/2024 6:47 PM CDT 11/27/2024 7:01 PM CDT us Gomez Mack MD LAB BLOOD ORDERABLES F inal Result SHEELA [address] [facility] [place] [address] * (ABNORMAL) CBC with auto differential (11/27/2024 6:47 PM CDT) [facility] WBC 6.36 3.80 - 9.90 K/cumm Comment:Testing performed by : [address] [address] Hgb 13.5 11.9 - 15.5 g/dL SHEELA Comment:Testing performed by : [address] [address] Hct 37.7 35.6 - 45.5 % SHEELA Comment:Testing performed by : [address] [address] Plt 221 150 - 400 K/cumm SHEELA Comment:Testing performed by : [address] [address] MPV 9.3 9.1 - 12.3 fL SHEELA Comment:Testing performed by : [address], [address] RBC 3.90 3.90 - 5.20 M/cumm SHEELA Comment:Testing performed by : [address] [address] MCV 96.7(H) 81.3 - 96.4 fL SHEELA Comment:Testing performed by : [address] [address] MCH 34.6(H) 27.1 - 33.3 pg SHEELA Comment:Testing performed by : [address], [address] MCHC 35.8(H) 32.3 - 35.7 g/dL SHEELA Comment:Testing performed by : [address] [address] RDW CV 12.3 11.1 - 14.9 % SHEELA Comment:Testing performed by : [address] [address] RDW SD 43.2 35.7 - 48.1 fL SHEELA Comment:Testing performed by : [address], [address] NRBC abs 0.00 0.00 - 0.01 K/cumm SHEELA Comment:Testing performed by : [address] [address] Blood Venous blood specimen / Unknown 11/27/2024 6:47 PM CDT 11/27/2024 7:01 PM CDT us Gomez Mack MD LAB BLOOD ORDERABLES F inal Result SHEELA [address] [facility] [place] [address] * (ABNORMAL) Comprehensive metabolic panel (11/27/2024 6:47 PM CDT) Sodium 136 135 - 145 mmol/L Comment:Testing performed by : [address] [address] Potassium, pl 4.1 3.3 - 4.9 mmol/L SHEELA Comment: Hemolyzed; Potassium value may be falsely elevated by as much as 1.0 mmol/L. Suggest redraw and reanalysis. Testing performed by: [address] [address] Chloride 99 97 - 110 mmol/L SHEELA Comment:Testing performed by : [address] [address] CO2 24 22 - 32 mmol/L SHEELA Comment:Testing performed by : [address] [address] Anion gap 13 2 - 15 mmol/L SHEELA Comment:Testing performed by : [address] [address] BUN 24 6 - 25 mg/dL SHEELA Comment:Testing performed by : [address] [address] Creatinine 0.79 0.60 - 1.10 mg/dL SHEELA Comment:Testing performed by : [address] [address] Glucose 143 70 - 199 mg/dL SHEELA Comment: Interpretive Data Fasting glucose >/= 126 mg/dl is diagnostic for diabetes. Fasting is defined as no caloric intake for at least 8 hours. Fasting glucose between 100 mg/dl to 125 mg/dl is diagnostic of prediabetes. In a patient with classic symptoms of hyperglycemia or hyperglycemic crisis, a random glucose >/= 200 mg/dl is diagnostic for diabetes. In the absence of unequivocal hyperglycemia, results should be confirmed by repeat testing. The classification and Diagnosis of Diabetes Diabetes Care 2021; 46: S19-S40. Current interpretive data was last revised 2022. Testing performed by: [address] [address] Calcium 10.5(H) 8.5 - 10.3 mg/dL SHEELA Comment:Testing performed by : [address] [address] Bilirubin, total 0.3 0.1 - 1.2 mg/dL SHEELA Comment:Testing performed by : [address] [address] Protein, pl 6.8 6.5 - 8.5 g/dL SHEELA Comment:Testing performed by : [address] [address] Albumin 4.5 3.5 - 5.0 g/dL SHEELA Comment:Testing performed by : [address] [address] Alk phos 96 40 - 130 Units/L SHEELA Comment:Testing performed by : [address] [address] ALT 22 7 - 45 Units/L SHEELA Comment:Testing performed by : [address] [address] AST 21 10 - 45 Units/L SHEELA Comment: Hemolyzed; result may be falsely elevated Testing performed by: [address] [address] Blood 11/27/2024 6:47 PM CDT 11/27/2024 7:01 PM CDT us Gomez Mack MD LAB BLOOD ORDERABLES F inal Result SHEELA [address] Department [place] [address] * ECG 12 lead (11/27/2024 6:43 PM CDT) Ventricular Rate EKG/Min 80 BPM [facility] Atrial Rate 80 BPM [facility] IA-Interval (MSEC) 138 ms [facility] QRS-Interval (MSEC) 82 ms [facility] QT-Interval (MSEC) 384 ms [facility] QTc 442 ms [facility] P Cascade 26 degrees [facility] R Cascade 65 degrees [facility] T Cascade 44 degrees [facility] Diagnosis Normal sinus rhythm Nonspecific ST abnormality When compared with ECG of 29-OCT-2024 18:57, No significant change was found Confirmed by ELSA BENTLEY D.O. ([id number]) on 11/28/2024 7:16:58 AM [facility] 11/27/2024 6:43 PM CDT 11/28/2024 7:16 AM CDT us Gomez Mack MD ECG ORDERABLES Final Result [facility] * eGFR (11/12/2024 3:06 PM CDT) Pathologist [facility] eGFR 74 >=60 mL/min/1. 73 m2 Comment: Interpretive Data Reference Interval Normal >/= 90 mL/min/1.73m2 Mildly decreased* 60 - 89 mL/min/1.73m2 Mildly to moderately decreased 45 - 59 mL/min/1.73m2 Moderately to severely decreased 30 - 44 mL/min/1.73m2 Severely decreased 15 - 29 mL/min/1.73m2 Kidney Failure < 15 mL/min/1.73m2 *Relative to young adult level Estimated glomerular filtration rate is determined by the 2020 CKD-EPI equation recommended by the National Kidney Foundation (A Unifying Approach to GFR Estimation: Recommendations of the NKF-ASK Task Force on Reassessing the Inclusion of Race in Diagnosing Kidney Disease, JASN 2020). The CKD-EPI equation should not be used for patients with unstable renal function and has not been validated in children and those over 70. Current interpretive data was last reviewed 2020. Blood 11/12/2024 3:06 PM CDT 11/12/2024 3:18 PM CDT Mary Norman MD LAB BLOOD ORDERABLES Final Resul t [facility] [address] [facility] [address] [place] [address] * Differential, auto (11/12/2024 3:06 PM CDT) Pathologist [facility] Neutrophil abs 3.70 1.50 - 6.50 K/cumm Imm gran abs 0.02 0.00 - 0.10 K/cumm [facility] Lymphocyte abs 2.03 0.80 - 3.30 K/cumm [facility] Monocyte abs 0.64 0.20 - 0.80 K/cumm [facility] Eosinophil abs 0.30 0.00 - 0.50 K/cumm [facility] Basophil abs 0.04 0.00 - 0.10 K/cumm [facility] Neutrophil pct 54.9 % [facility] Comment: Interpretive Data Percent cell count reference ranges are not reported, since discordance with absolute values may lead to misinterpretation of CBC data. Current Interpretive Data was last revised on 2017. Imm gran pct 0.3 % [facility] Comment: Interpretive Data Percent cell count reference ranges are not reported, since discordance with absolute values may lead to misinterpretation of CBC data. Current Interpretive Data was last revised on 2017. Lymphocyte pct 30.2 % [facility] Comment: Interpretive Data Percent cell count reference ranges are not reported, since discordance with absolute values may lead to misinterpretation of CBC data. Current Interpretive Data was last revised on 2017. Monocyte pct 9.5 % [facility] Comment: Interpretive Data Percent cell count reference ranges are not reported, since discordance with absolute values may lead to misinterpretation of CBC data. Current Interpretive Data was last revised on 2017. Eosinophil pct 4.5 % [facility] Comment: Interpretive Data Percent cell count reference ranges are not reported, since discordance with absolute values may lead to misinterpretation of CBC data. Current Interpretive Data was last revised on 2017. Basophil pct 0.6 % [facility] Comment: Interpretive Data Percent cell count reference ranges are not reported, since discordance with absolute values may lead to misinterpretation of CBC data. Current Interpretive Data was last revised on 2017. Blood 11/12/2024 3:06 PM CDT 11/12/2024 3:18 PM CDT Mary Norman MD LAB BLOOD ORDERABLES Final Resul t Performing Organization Address [facility] de Phone Number [address] [address] * Ver[employer]Now clopidogrel (11/12/2024 3:06 PM CDT) [facility] Ver[employer]Now clopidogrel 166 PRU Comment:Testing performed by : [facility], [address] [place]., [address] Blood 11/12/2024 3:06 PM CDT 11/12/2024 6:01 PM CDT Narrative SHEELA - 11/15/2024 3:52 PM CDT Ruthie at [place] customer service talked with a bench tech and they have started investigating why the specimen has not been completed or canceled yet 11/15/2024 15:04:19 CDT [id number] Mary Norman MD LAB BLOOD ORDERABLES Final Resul t Performing Organization Address [facility] de Phone Number [place] [address] [place] [address] * (ABNORMAL) CBC with auto differential (11/12/2024 3:06 PM CDT) Pathologist [facility] WBC 6.73 3.80 - 9.90 K/cumm Hgb 13.7 11.9 - 15.5 g/dL [facility] Hct 39.4 35.6 - 45.5 % [facility] Plt 209 150 - 400 K/cumm [facility] MPV 9.6 9.1 - 12.3 fL [facility] RBC 3.99 3.90 - 5.20 M/cumm [facility] MCV 98.7(H) 81.3 - 96.4 fL [facility] MCH 34.3(H) 27.1 - 33.3 pg [facility] MCHC 34.8 32.3 - 35.7 g/dL [facility] RDW CV 12.0 11.1 - 14.9 % [facility] RDW SD 43.8 35.7 - 48.1 fL [facility] NRBC abs 0.00 0.00 - 0.01 K/cumm [facility] Blood 11/12/2024 3:06 PM CDT 11/12/2024 3:18 PM CDT Mary Norman MD LAB BLOOD ORDERABLES Final Resul t Performing Organization Address [facility] de Phone Number [address] [employer] [place] [address] * ABO/Rh (11/12/2024 3:06 PM CDT) Pathologist [facility] ABO/Rh O Positive Blood 11/12/2024 3:06 PM CDT 11/12/2024 3:18 PM CDT Narrative [facility] - 11/12/2024 4:03 PM CDT Is this test being ordered in advance for a procedure?->Yes Expected date of procedure:->12/03/24 Has the patient been transfused in the past 3 months?->No Has the patient been in the past 3 months?->No Mary Norman MD LAB BLOOD BANK TEST ORDERABLES F inal Result Performing Organization Address [facility] Co de Phone Number [address] [employer] [place], [place] [id number] * aPTT (11/12/2024 3:06 PM CDT) aPTT 25 22 - 37 sec Comment: Interpretive data aPTT test has not been evaluated for monitoring heparin therapy. The anti-Xa is the preferred test. Current interpretive data was last revised on 2019. Blood 11/12/2024 3:06 PM CDT 11/12/2024 3:18 PM CDT Result [facility] Mary Norman MD LAB BLOOD ORDERABLES Final Resul t Performing Organization Address [facility] de Phone Number [address] [address] * Protime-INR (11/12/2024 3:06 PM CDT) PT 12.80 12.00 - 14.60 sec INR 0.95 0.90 - 1.20 SHEELA Comment: Interpretive data Oral anticoagulant therapeutic ranges: Venous thromboembolism prophylaxis or treatment: 2.0-3.0 CARDIOLOGY Standard range: 2.0-3.0 High-intensity range: 2.5-3.5 Refer to indication-specific guidelines for appropriate target ranges for prosthetic heart valve replacement. Current interpretive data was last revised on 2019. Blood 11/12/2024 3:06 PM CDT 11/12/2024 3:18 PM CDT Result [facility] Mary Norman MD LAB BLOOD ORDERABLES Final Resul t Performing Organization Address [facility] de Phone Number [address] [address] * Antibody screen (11/12/2024 3:06 PM CDT) Kuldeep, indirect, Gel Interpretation Negative [facility]SC Blood 11/12/2024 3:06 PM CDT 11/12/2024 3:18 PM CDT Narrative SHEELA - 11/12/2024 4:03 PM CDT Is this test being ordered in advance for a procedure?->Yes Expected date of procedure:->12/03/24 Has the patient been transfused in the past 3 months?->No Has the patient been in the past 3 months?->No Result [facility] Mary Norman MD LAB BLOOD BANK TEST ORDERABLES F inal Result Performing Organization Address [facility] Co de Phone Number SHEELA [address] [facility] [place] [address] * Basic metabolic panel (11/12/2024 3:06 PM CDT) Sodium 138 135 - 145 mmol/L Potassium, pl 4.4 3.3 - 4.9 mmol/L [facility] Chloride 103 97 - 110 mmol/L [facility] CO2 24 22 - 32 mmol/L [facility] Anion gap 11 2 - 15 mmol/L [facility] BUN 21 6 - 25 mg/dL [facility] Creatinine 0.83 0.60 - 1.10 mg/dL [facility] Glucose 103 70 - 199 mg/dL [facility] Comment: Interpretive Data Fasting glucose >/= 126 mg/dl is diagnostic for diabetes. Fasting is defined as no caloric intake for at least 8 hours. Fasting glucose between 100 mg/dl to 125 mg/dl is diagnostic of prediabetes. In a patient with classic symptoms of hyperglycemia or hyperglycemic crisis, a random glucose >/= 200 mg/dl is diagnostic for diabetes. In the absence of unequivocal hyperglycemia, results should be confirmed by repeat testing. The classification and Diagnosis of Diabetes Diabetes Care 2021; 46: S19-S40. Current interpretive data was last revised 2022. Calcium 9.8 8.5 - 10.3 mg/dL [facility] Blood 11/12/2024 3:06 PM CDT 11/12/2024 3:18 PM CDT Mary Norman MD LAB BLOOD ORDERABLES Final Resul t Performing Organization Address [facility] Co de Phone Number SHEELA [address] [facility] [place] [address] * CTA Head Neck W WO Contrast (10/30/2024 2:56 PM CDT) Anatomical Region Laterality Modality Head and Neck N/A Computed Tomogra phy 10/30/2024 4:12 PM CDT Narrative 10/30/2024 4:43 PM CDT EXAM DESCRIPTION: CTA HEAD NECK W WO CONTRAST REASON FOR STUDY: Stroke/TIA, determine embolic source Stroke/TIA, determine embolic source TECHNIQUE: Axial images were first obtained through the brain without contrast. Axial dynamic scanning technique with dynamic contrast enhancement through the intracranial and extracranial carotid and vertebral arteries. Multiplanar reconstruction. All stenosis measurements are based on NASCET criteria. 3D MIP images rendered on scanning unit and reviewed at time of interpretation. Automated exposure control was used as a dose optimization technique for this examination. CONTRAST TYPE/DOSE: 100mL of IOVERSOL 350 MG IODINE/ML INTRAVENOUS SYRINGE injected via intravenous COMPARISON: Brain MRI from earlier today. FINDINGS: BRAIN CEREBRUM: No hemorrhage, edema or mass effect. No recent infarct. Brain parenchyma volume well-maintained. WHITE MATTER: Patchy areas of low density of white matter in periventricular regions again noted some left-sided predominance, with in keeping with small recent white matter infarcts.. POSTERIOR FOSSA: No masses. No hemorrhage. No evidence for acute infarction. EXTRA-AXIAL SPACES: No fluid collections. No masses. ORBITS: No significant abnormality. CALVARIUM: No fracture. SINUSES/MASTOIDS: No fluid or mucosal thickening. OTHER: No other significant abnormality. INTRACRANIAL VESSELS CAPITAN GRANDE BAND OF RIVERA: There is scattered atheromatous plaque with narrowing of the cavernous carotid arteries bilaterally. The proximal anterior, middle, posterior cerebral arteries are all patent. No evidence of aneurysm or focal stenosis. The more distal ROYA branches past the A3 branches has a thready incomplete appearance possibly indicating partial stenosis or thrombosis. No proximal high-grade branch occlusion or stenosis is seen. POSTERIOR CIRCULATION: The distal vertebral arteries are patent as is the basilar artery. No aneurysm. BRAIN: No gross enhancing lesions as visualized. CAROTID CTA RIGHT CAROTIDS: There is severe coarse calcific plaque and fatty plaque at the right proximal internal carotid artery with stenosis estimated 80%. LEFT CAROTIDS: Severe circumferential stenosis of the proximal left ICA mostly with fatty plaque. The degree of stenosis of the left internal carotid artery is estimated at 63%. There is also a coarse plaque along the distal left cervical ICA at skull base with mild narrowing. LEFT VERTEBRAL: Patent. No significant stenosis. No dissection. RIGHT VERTEBRAL: Patent. No significant stenosis. No dissection. AORTIC ARCH: There is severe stenosis of the left common carotid artery from the aortic arch. Great vessel origins otherwise appear normal. NECK SOFT TISSUE: No mass, adenopathy. No thyroid nodule greater than 1 cm. INCLUDED LUNGS: No acute abnormality. No worrisome nodules. OTHER: No other significant finding. IMPRESSION: INTRACRANIAL CTA: No proximal high-grade branch occlusion or stenosis identified of the anterior middle or posterior cerebral arteries.. The more distal ROYA branches distal to the A3 branches has a thready incomplete appearance possibly indicating partial stenosis or thrombosis. CAROTID CTA: 1. Severe stenosis of the proximal right internal carotid artery estimated at 80%. 2. Severe stenosis of the proximal left internal carotid artery estimated at 63%. 3. Severe stenosis of the left common carotid artery from the aortic arch. THIS IS AN ELECTRONICALLY VERIFIED FINAL REPORT 10/30/2024 4:43 PM - Electronically signed by Deepa Wheeler M.D. LC: MANSI Report ID: [id number] Reading Location: [place] [address] Procedure Note Roxann Wheeler MD - 10/30/2024 EXAM DESCRIPTION: CTA HEAD NECK W WO CONTRAST REASON FOR STUDY: Stroke/TIA, determine embolic source Stroke/TIA, determine embolic source TECHNIQUE: Axial images were first obtained through the brain without contrast. Axial dynamic scanning technique with dynamic contrast enhancement throughthe intracranial and extracranial carotid and vertebral arteries. Multiplanar reconstruction. All stenosis measurements are based on NASCET criteria. 3D MIP images rendered on scanning unit and reviewed at time of interpretation. Automated exposure control was used as a dose optimization technique forthis examination. CONTRAST TYPE/DOSE: 100mL of IOVERSOL 350 MG IODINE/ML INTRAVENOUSSYRINGE injected via intravenous COMPARISON: Brain MRI from earlier today. FINDINGS: BRAIN CEREBRUM: No hemorrhage, edema or mass effect. No recent infarct. Brain parenchyma volume well-maintained. WHITE MATTER: Patchy areas of low density of white matter inperiventricular regions again noted some left-sided predominance, with in keeping withsmall recent white matter infarcts.. POSTERIOR FOSSA: No masses. No hemorrhage. No evidence for acuteinfarction. EXTRA-AXIAL SPACES: No fluid collections. No masses. ORBITS: No significant abnormality. CALVARIUM: No fracture. SINUSES/MASTOIDS: No fluid or mucosal thickening. OTHER: No other significant abnormality. INTRACRANIAL VESSELS [place] BAND OF [place]: There is scattered atheromatous plaque with narrowingof the cavernous carotid arteries bilaterally. The proximal anterior,middle, posterior cerebral arteries are all patent. No evidence of aneurysm orfocal stenosis. The more distal ROYA branches past the A3 branches has a thready incomplete appearance possibly indicating partial stenosis or thrombosis.No proximal high-grade branch occlusion or stenosis is seen. POSTERIOR CIRCULATION: The distal vertebral arteries are patent as isthe basilar artery. No aneurysm. BRAIN: No gross enhancing lesions as visualized. CAROTID CTA RIGHT CAROTIDS: There is severe coarse calcific plaque and fatty plaqueat the right proximal internal carotid artery with stenosis estimated 80%. LEFT CAROTIDS: Severe circumferential stenosis of the proximal left ICA mostly with fatty plaque. The degree of stenosis of the left internalcarotid artery is estimated at 63%. There is also a coarse plaque along thedistal left cervical ICA at skull base with mild narrowing. LEFT VERTEBRAL: Patent. No significant stenosis. No dissection. RIGHT VERTEBRAL: Patent. No significant stenosis. No dissection. AORTIC ARCH: There is severe stenosis of the left common carotid arteryfrom the aortic arch. Great vessel origins otherwise appear normal. NECK SOFT TISSUE: No mass, adenopathy. No thyroid nodule greater than 1cm. INCLUDED LUNGS: No acute abnormality. No worrisome nodules. OTHER: No other significant finding. IMPRESSION: INTRACRANIAL CTA: No proximal high-grade branch occlusion or stenosis identified of theanterior middle or posterior cerebral arteries.. The more distal ROYA branchesdistal to the A3 branches has a thready incomplete appearance possibly indicating partial stenosis or thrombosis. CAROTID CTA: 1. Severe stenosis of the proximal right internal carotid arteryestimated at 80%. 2. Severe stenosis of the proximal left internal carotid arteryestimated at 63%. 3. Severe stenosis of the left common carotid artery from the aorticarch. THIS IS AN ELECTRONICALLY VERIFIED FINAL REPORT 10/30/2024 4:43 PM - Electronically signed by Deepa Wheeler M.D. LC: MANSI Report ID: [id number] Reading Location: [place] [address] us Ivon Jarrell MD IM CT PROCEDURES Fin al Result * TRANSTHORACIC ECHO (TTE) COMPLETE W DOPPLER/CF WO CONTRAST (10/30/2024 12:50 PM CDT) EF Mod BP 58 % CONS SCIMAGE Anatomical Region Laterality Modality Ultrasound 10/30/2024 12:1 7 PM CDT Narrative 10/30/2024 4:56 PM CDT Transthoracic Echocardiographic Report Patient Name: MEGAN VELA : 1950 (73y 11m) Gender: F Study Date: 10/30/2024 12:17:48 PM Ht(Inch): 62 Wt(Lb): 134 BSA: 1.63 Planogrammer: Irish Angulo RDCS Location: [id number] Order Provider: DEVANTE SWENSON Heart Rate: 77 BMI: 24.51 BP: 167 / 76 Ref Provider: DEVANTE SWENSON PROCEDURES: Echocardiographic Report: ([id number]) Transthoracic complete echo, 2D, spectral and tissue Doppler, color flow Doppler, M-mode. Additional Procedures: Agitated saline bubble study was declined by patient. INDICATIONS: Stroke and Transient ischemic attack. FINDINGS: Left Ventricle: Normal left ventricular cavity size. Mild concentric left ventricular hypertrophy. Normal left ventricular systolic function. The Ejection Fraction (Molina's) is measured at 58 %. Diastolic Function E to A reversal Suggestive of abnormal relaxation during early diastole, E to E' ratio is 8-15 which is in the indeterminate zone and left ventricular diastolic parameters are consistent with Grade I diastolic dysfunction (normal LA pressure). No Thrombus noted in Left Ventricle. Regional Wall Motion: There are no regional wall motion abnormalities. Right Ventricle: Normal right ventricular size. Normal right ventricular systolic function. Left Atrium: Mildly dilated left atrium. Right Atrium: Mildly dilated right atrium. Atrial Septum: There is evidence of an interatrial septal aneurysm, which may be a normal variant. The patient refused the bubble study. Mitral Valve: Valve normal in structure and function. Aortic Valve: The aortic cusps appear mildly sclerosed. No aortic regurgitation seen. No aortic valve stenosis. The mean transaortic gradient is 2 mmHg. Tricuspid Valve: The tricuspid valve demonstrates normal leaflet structure. There is mild tricuspid regurgitation. Pulmonic Valve: Pulmonic Valve not well visualized due to poor echo windows. Pericardium: No pericardial effusion. Aorta: Normal aortic root. IVC: IVC is normal in size. IVC Collapses normally with inspiration. The estimated RA pressure is 0-5 mmHg. CONCLUSIONS: 1. Normal left ventricular systolic function. The Ejection Fraction (Molina's) is measured at 58 %. 2. Atrial septal aneurysm. The patient refused a bubble study. MEASUREMENTS: 2D/MM Value Range Doppler Value LVIDd 2D 4.26 cm [ 3.50 - 5.70 ] AV Peak Enrico 1.01 m/s LVIDs 2D 3.13 cm [ 3.10 - 4.60 ] AV Peak PG 4.08 mmHg IVSd 2D 1.00 cm [ 0.60 - 1.20 ] AV Mean PG 2.00 mmHg LVPWd 2D 0.90 cm [ 0.60 - 1.10 ] AV VTI 23.10 cm LV Thickness Ratio 1.11 LVOT Peak Enrico 1.04 m/s LV Mass 2D 133.23 g LVOT Peak PG 4.33 mmHg LV Mass Index 2D 81.74 g/m2 LVOT Mean PG 2.00 mmHg RWT 0.42 LVOT VTI 22.40 cm EDV Mod BP 58.10 ml [ 46.00 - 106.00 ] LVOT Diam 2.00 cm LV EDV Index 35.64 ml/m2 SV LVOT 70.00 cm3 ESV Mod BP 24.40 ml [ 14.00 - 42.00 ] MARIA C VTI 3.04 cm2 EF Mod BP 58 % [ 54 - 74 ] MARIA C Vmax 3.23 cm2 LA Dimension MM 3.30 cm [ 1.90 - 4.00 ] LVOT/AV VTI 0.97 - Dimensionless index (DVI) LA Length 4C 4.70 cm MV E Peak Enrico 0.64 m/s TAPSE 1.87 cm [ 1.71 - 5.00 ] MV A Peak Enrico 1.01 m/s RA Volume 25.50 ml MV E/A 0.60 ratio RA Volume Index 15.64 ml/m2 MV Decel Time 282.00 msec Med E` Enrico 0.06 m/s Lat E` Enrico 0.08 m/s Average E/E` 914.29 RV S` 0.11 m/s TR Peak Enrico 2.37 m/s TR Peak PG 22.5 mmHg PV Peak Enrico 0.96 m/s PV Peak PG 3.69 mmHg - ATTESTATION: I have reviewed and interpreted the pertinent images and measurements of this study. I attest to the conclusions in the final report that is provided above. DISCLAIMER: The study images and the final report will be retained in the patient chart by the [facility] for the legally required time period. This chart constitutes the legal record of any testing performed. Electronically Signed By: Sultan Hai BALDERAS 10/30/2024 4:55:45 PM CDT Procedure Note Sultan Nirmal Valles MD - 10/30/2024 Transthoracic Echocardiographic Report Patient Name: MEGAN VELA : 1950 (73y 11m) Gender: F Study Date: 10/30/2024 12:17:48 PM Ht(Inch): 62 Wt(Lb): 134 BSA: 1.63 Planogrammer: Irish Angulo [facility] Location: [place] [id number] Order Provider:DEVANTE SWENSON Heart Rate: 77 BMI: 24.51 BP: 167 / 76 Ref Provider: DEVANTE SWENSON PROCEDURES: Echocardiographic Report: ([id number]) Transthoracic complete echo, 2D,spectral and tissue Doppler, color flow Doppler, M-mode. Additional Procedures: Agitated saline bubble study was declined bypatient. INDICATIONS: Stroke and Transient ischemic attack. FINDINGS: Left Ventricle: Normal left ventricular cavity size. Mild concentric leftventricular hypertrophy. Normal left ventricular systolic function. The EjectionFraction (Molina's) is measured at 58 %. Diastolic Function E to A reversal Suggestive ofabnormal relaxation during early diastole, E to E' ratio is 8-15 which is in the indeterminatezone and left ventricular diastolic parameters are consistent with Grade I diastolicdysfunction (normal LA pressure). No Thrombus noted in Left Ventricle. Regional Wall Motion: There are no regional wall motion abnormalities. Right Ventricle: Normal right ventricular size. Normal right ventricularsystolic function. Left Atrium: Mildly dilated left atrium. Right Atrium: Mildly dilated right atrium. Atrial Septum: There is evidence of an interatrial septal aneurysm, whichmay be a normal variant. The patient refused the bubble study. Mitral Valve: Valve normal in structure and function. Aortic Valve: The aortic cusps appear mildly sclerosed. No aorticregurgitation seen. No aortic valve stenosis. The mean transaortic gradient is 2 mmHg. Tricuspid Valve: The tricuspid valve demonstrates normal leafletstructure. There is mild tricuspid regurgitation. Pulmonic Valve: Pulmonic Valve not well visualized due to poor echowindows. Pericardium: No pericardial effusion. Aorta: Normal aortic root. IVC: IVC is normal in size. IVC Collapses normally with inspiration. Theestimated RA pressure is 0-5 mmHg. CONCLUSIONS: 1. Normal left ventricular systolic function. The Ejection Fraction(Molina's) is measured at 58 %. 2. Atrial septal aneurysm. The patient refused a bubble study. MEASUREMENTS: 2D/MM Value Range DopplerValue LVIDd 2D 4.26 cm [ 3.50 - 5.70 ] AV Peak Vel1.01 m/s LVIDs 2D 3.13 cm [ 3.10 - 4.60 ] AV Peak PG4.08 mmHg IVSd 2D 1.00 cm [ 0.60 - 1.20 ] AV Mean PG2.00 mmHg LVPWd 2D 0.90 cm [ 0.60 - 1.10 ] AV VTI23.10 cm LV Thickness Ratio 1.11 LVOT Peak Vel1.04 m/s LV Mass 2D 133.23 g LVOT Peak PG4.33 mmHg LV Mass Index 2D 81.74 g/m2 LVOT Mean PG2.00 mmHg RWT 0.42 LVOT VTI22.40 cm EDV Mod BP 58.10 ml [ 46.00 - 106.00 ] LVOT Diam2.00 cm LV EDV Index 35.64 ml/m2 SV LVOT70.00 cm3 ESV Mod BP 24.40 ml [ 14.00 - 42.00 ] MARIA C VTI3.04 cm2 EF Mod BP 58 % [ 54 - 74 ] MARIA C Vmax3.23 cm2 LA Dimension MM 3.30 cm [ 1.90 - 4.00 ] LVOT/AV VTI0.97 - Dimensionless index (DVI) LA Length 4C 4.70 cm MV E Peak Vel0.64 m/s TAPSE 1.87 cm [ 1.71 - 5.00 ] MV A Peak Vel1.01 m/s RA Volume 25.50 ml MV E/A0.60 ratio RA Volume Index 15.64 ml/m2 MV Decel Cxaj445.00 msec Med E` Enrico 0.06 m/s Lat E` Enrico 0.08 m/s Average E/E` 914.29 RV S` 0.11 m/s TR Peak Enrico 2.37 m/s TR Peak PG 22.5 mmHg PV Peak Enrico 0.96 m/s PV Peak PG 3.69 mmHg - ATTESTATION: I have reviewed and interpreted the pertinent images and measurements ofthis study. I attest to the conclusions in the final report that is provided above. DISCLAIMER: The study images and the final report will be retained in the patientchart by the [facility] for the legally required time period. This chart constitutesthe legal record of any testing performed. Electronically Signed By: Sultan Hai BALDERAS 10/30/2024 4:55:45 PM CDT Devante Swenson MD CV ECHO PROCEDURES F inal Result * US Carotids Duplex Bilateral (10/30/2024 12:35 PM CDT) Anatomical Region Laterality Modality Vascular Bilateral Ultrasound 10/30/2024 11:4 3 AM CDT Narrative 10/31/2024 9:02 AM CDT Carotid Duplex Ultrasound Report Patient Name: MEGAN VELA : 1950 (73y 11m) Study Date: 10/30/2024 11:43:54 AM Sex: F Planogrammer: FERMIN OSLIZ Location: [id number] Ref Provider: DEVANTE SWENSON Quality: Adequate Order Provider: DEVANTE SWENSON PROCEDURES: Carotid Report: Carotid duplex examination of the extracranial arteries was performed using 2D, color and spectral Doppler. Blood Pressure: Right: 173/78 mmHg. Left: 167/76 mmHg. INDICATIONS: Stoke workup. HISTORY: Smoking. Left carotid endarterectomy (2019). COMPARISONS: The previous exam was completed on 04-27-2018. Patient had a stenosis of 40-59% in the right ICA and a normal left ICA. MEASUREMENTS: Right Value Left Value RT Prox CCA PSV 88 cm/sec LT Prox CCA PSV 64 cm/sec RT Prox CCA EDV 17 cm/sec LT Prox CCA EDV 12 cm/sec RT Distal CCA PSV 62 cm/sec LT Distal CCA PSV 50 cm/sec RT Distal CCA EDV 16 cm/sec LT Distal CCA EDV 11 cm/sec RT Prox ICA PSV 236 cm/sec LT Prox ICA PSV 514 cm/sec RT Prox ICA EDV 55 cm/sec LT Prox ICA EDV 167 cm/sec RT Mid ICA PSV 155 cm/sec LT Mid ICA PSV 213 cm/sec RT Mid ICA EDV 30 cm/sec LT Mid ICA EDV 48 cm/sec RT Distal ICA PSV 49 cm/sec LT Distal ICA PSV 66 cm/sec RT Distal ICA EDV 13 cm/sec LT Distal ICA EDV 20 cm/sec RT ECA Prx PSV 182 cm/sec LT ECA Prx PSV 97 cm/sec RT ICA/CCA 3.81 ratio LT ICA/CCA 10.28 ratio Rt Vert PSV 61 cm/sec Lt Vert PSV 43 cm/sec FINDINGS: Rt Common Carotid Artery: The plaque in the right CCA appears to be heterogeneous, soft, and smooth. Rt Internal Carotid Artery: The plaque in the right internal carotid artery appears to be heterogeneous, calcified, soft, and smooth. Significant atherosclerotic changes of the right internal carotid artery with elevated peak systolic velocity and end diastolic velocity, as above. >70% stenosis. Rt External Carotid Artery: Patent right external carotid artery with evidence of atherosclerotic disease present. Rt Vertebral Artery: The right vertebral artery is patent with antegrade flow. Lt Common Carotid Artery: The plaque in the left CCA appears to be heterogeneous and smooth. Lt Internal Carotid Artery: The plaque in the left internal carotid artery appears to be heterogeneous, soft, and smooth. Significant atherosclerotic changes of the left internal carotid artery with elevated peak systolic velocity and end diastolic velocity, as above. >70% stenosis. Lt External Carotid Artery: Patent left external carotid artery with evidence of atherosclerotic disease present. Lt Vertebral Artery: The left vertebral artery is patent with antegrade flow. Provider Notification: Radha Mix RN. CONCLUSIONS: 1. The right internal carotid artery disease is consistent with severe, greater than 70% stenosis. 2. The left internal carotid artery disease is consistent with severe, greater than 70% stenosis. 3. Normal, antegrade flow is noted in bilateral vertebral arteries. ATTESTATION: I have reviewed and interpreted the pertinent images and measurements of this study. I attest to the conclusions in the final report that is provided above. Electronically Signed By: Mary Norman MD 10/31/2024 8:39:45 AM CDT Procedure Note Mary Norman MD - 10/31/2024 Carotid Duplex Ultrasound Report Patient Name: MEGAN VELA : 1950 (73y 11m) Study Date: 10/30/2024 11:43:54 AM Sex: F Planogrammer: FERMIN SOLIZ Location: [id number] Ref Provider: DEVANTE SWENSON Quality: Adequate Order Provider: DEVANTE SWENSON PROCEDURES: Carotid Report: Carotid duplex examination of the extracranial arterieswas performed using 2D, color and spectral Doppler. Blood Pressure: Right: 173/78 mmHg. Left: 167/76 mmHg. INDICATIONS: Stoke workup. HISTORY: Smoking. Left carotid endarterectomy (2019). COMPARISONS: The previous exam was completed on 04-27-2018. Patient had a stenosis of40-59% in the right ICA and a normal left ICA. MEASUREMENTS: Right Value Left Value RT Prox CCA PSV 88 cm/sec LT Prox CCA PSV 64 cm/sec RT Prox CCA EDV 17 cm/sec LT Prox CCA EDV 12 cm/sec RT Distal CCA PSV 62 cm/sec LT Distal CCA PSV 50 cm/sec RT Distal CCA EDV 16 cm/sec LT Distal CCA EDV 11 cm/sec RT Prox ICA PSV 236 cm/sec LT Prox ICA PSV 514 cm/sec RT Prox ICA EDV 55 cm/sec LT Prox ICA EDV 167 cm/sec RT Mid ICA PSV 155 cm/sec LT Mid ICA PSV 213 cm/sec RT Mid ICA EDV 30 cm/sec LT Mid ICA EDV 48 cm/sec RT Distal ICA PSV 49 cm/sec LT Distal ICA PSV 66 cm/sec RT Distal ICA EDV 13 cm/sec LT Distal ICA EDV 20 cm/sec RT ECA Prx PSV 182 cm/sec LT ECA Prx PSV 97 cm/sec RT ICA/CCA 3.81 ratio LT ICA/CCA 10.28 ratio Rt Vert PSV 61 cm/sec Lt Vert PSV 43 cm/sec FINDINGS: Rt Common Carotid Artery: The plaque in the right CCA appears to beheterogeneous, soft, and smooth. Rt Internal Carotid Artery: The plaque in the right internal carotidartery appears to be heterogeneous, calcified, soft, and smooth. Significant atheroscleroticchanges of the right internal carotid artery with elevated peak systolic velocity and enddiastolic velocity, as above. >70% stenosis. Rt External Carotid Artery: Patent right external carotid artery withevidence of atherosclerotic disease present. Rt Vertebral Artery: The right vertebral artery is patent with antegradeflow. Lt Common Carotid Artery: The plaque in the left CCA appears to beheterogeneous and smooth. Lt Internal Carotid Artery: The plaque in the left internal carotid arteryappears to be heterogeneous, soft, and smooth. Significant atherosclerotic changes ofthe left internal carotid artery with elevated peak systolic velocity and end diastolicvelocity, as above. >70% stenosis. Lt External Carotid Artery: Patent left external carotid artery withevidence of atherosclerotic disease present. Lt Vertebral Artery: The left vertebral artery is patent with antegradeflow. Provider Notification: Radha Mix RN. CONCLUSIONS: 1. The right internal carotid artery disease is consistent with severe,greater than 70% stenosis. 2. The left internal carotid artery disease is consistent with severe,greater than 70% stenosis. 3. Normal, antegrade flow is noted in bilateral vertebral arteries. ATTESTATION: I have reviewed and interpreted the pertinent images and measurements ofthis study. I attest to the conclusions in the final report that is provided above. Electronically Signed By: Mary Norman MD 10/31/2024 8:39:45 AM CDT Devante Swenson MD IMG US PROCEDURES Fi nal Result * MRI Brain WO Contrast (10/30/2024 11:45 AM CDT) Anatomical Region Laterality Modality Head and Neck N/A Magnetic Resonan ce 10/30/2024 12:1 1 PM CDT Narrative 10/30/2024 1:03 PM CDT EXAM DESCRIPTION: MRI BRAIN WO CONTRAST REASON FOR STUDY: Transient ischemic attack (TIA) Admit c/o intermittent headaches over the course of the past 3 weeks, typically left frontal headache with radiation to the left side of the occiput, pressure and throbbing in nature. Pt is on 3 different antihypertensives TECHNIQUE: Multiplanar imaging includes non-contrasted T1, T2, FLAIR, and diffusion with ADC map sequences. Additional sequence(s) sensitive to blood products. Images stored on PACS. COMPARISON: Head CT comparison from 10/29/2024. FINDINGS: CEREBRUM: Small T2 hyperintense foci are present in the border zone territory of the left cerebral hemisphere. On ADC maps, several demonstrate diffusion restriction. Findings suggest developing border zone ischemic change possibly related to a flow-limiting lesion or intracranial vascular stenosis.. No abnormality on blood sensitive gradient T2 weighted sequences identified to indicate hemosiderin or other chronic blood breakdown product. WHITE MATTER: Scattered foci of T2 hyperintensity evident in periventricular and subcortical white matter in keeping with likely microvascular change. POSTERIOR FOSSA: Brainstem and cerebellum appear unremarkable. DIFFUSION IMAGING: No recent infarction. EXTRAAXIAL SPACES: No hemorrhage. No mass. BRAIN VOLUME: Within normal limits for age. PITUITARY: Unremarkable. VASCULATURE: No flow disturbance identified. ORBITS: No masses. Globes normal. PARANASAL SINUSES AND MASTOIDS: Well-aerated with no fluid levels. No mucosa thickening. OTHER: No other significant finding. IMPRESSION: 1. Small foci of diffusion restriction in the left cerebral hemisphere in the border zone territory. Findings suggest developing border zone ischemic change possibly related to a flow-limiting lesion or intracranial vascular stenosis. Further evaluation with CTA or MRA may be beneficial. 2. Otherwise, age-related changes. Findings called to patient's nurse, ALIX Garcia, on the floor at the time of this dictation. THIS IS AN ELECTRONICALLY VERIFIED FINAL REPORT 10/30/2024 1:03 PM - Electronically signed by Deepa Wheeler M.D. LC: MANSI Report ID: [id number] Reading Location: [id number] Procedure Note Roxann Wheeler MD - 10/30/2024 EXAM DESCRIPTION: MRI BRAIN WO CONTRAST REASON FOR STUDY: Transient ischemic attack (TIA) Admit c/o intermittent headaches over the course of the past 3 weeks, typically left frontal headache with radiation to the left side of the occiput, pressure and throbbing in nature. Pt is on 3 different antihypertensives TECHNIQUE: Multiplanar imaging includes non-contrasted T1, T2, FLAIR, and diffusion with ADC map sequences. Additional sequence(s) sensitive toblood products. Images stored on PACS. COMPARISON: Head CT comparison from 10/29/2024. FINDINGS: CEREBRUM: Small T2 hyperintense foci are present in the border zone territory of the left cerebral hemisphere. On ADC maps, several demonstrate diffusion restriction. Findings suggest developing borderzone ischemic change possibly related to a flow-limiting lesion or intracranial vascular stenosis.. No abnormality on blood sensitive gradient [id number] sequences identified to indicate hemosiderin or other chronic bloodbreakdown product. WHITE MATTER: Scattered foci of T2 hyperintensity evident inperiventricular and subcortical white matter in keeping with likely microvascular change. POSTERIOR FOSSA: Brainstem and cerebellum appear unremarkable. DIFFUSION IMAGING: No recent infarction. EXTRAAXIAL SPACES: No hemorrhage. No mass. BRAIN VOLUME: Within normal limits for age. PITUITARY: Unremarkable. VASCULATURE: No flow disturbance identified. ORBITS: No masses. Globes normal. PARANASAL SINUSES AND MASTOIDS: Well-aerated with no fluid levels. [place] thickening. OTHER: No other significant finding. IMPRESSION: 1. Small foci of diffusion restriction in the left cerebral hemispherein the border zone territory. Findings suggest developing border zoneischemic change possibly related to a flow-limiting lesion or intracranial vascular stenosis. Further evaluation with CTA or MRA may be beneficial. 2. Otherwise, age-related changes. Findings called to patient's nurse, ALIX Garcia, on the floor at the time of this dictation. THIS IS AN ELECTRONICALLY VERIFIED FINAL REPORT 10/30/2024 1:03 PM - Electronically signed by Deepa Wheeler M.D. LC: MANSI Report ID: [id number] Reading Location: [id number] Devante Swenson MD IMG MRI PROCEDURES F inal Result * eGFR (10/30/2024 6:02 AM CDT) eGFR 79 >=60 mL/min/1. 73 m2 Comment: Interpretive Data Reference Interval Normal >/= 90 mL/min/1.73m2 Mildly decreased* 60 - 89 mL/min/1.73m2 Mildly to moderately decreased 45 - 59 mL/min/1.73m2 Moderately to severely decreased 30 - 44 mL/min/1.73m2 Severely decreased 15 - 29 mL/min/1.73m2 Kidney Failure < 15 mL/min/1.73m2 *Relative to young adult level Estimated glomerular filtration rate is determined by the 2020 CKD-EPI equation recommended by the [employer] (A Unifying Approach to GFR Estimation: Recommendations of the NKF-ASK Task Force on Reassessing the Inclusion of Race in Diagnosing Kidney Disease, JASN 2020). The CKD-EPI equation should not be used for patients with unstable renal function and has not been validated in children and those over 70. Current interpretive data was last reviewed 2020. Testing performed by: [facility], [address] [place] [address], [place]., [address] Blood 10/30/2024 6:02 AM CDT 10/30/2024 6:40 AM CDT Devante Swenson MD LAB BLOOD ORDERABLES Final Result [facility] [address] [place] [address] * Differential, auto (10/30/2024 6:02 AM CDT) Neutrophil abs 2.88 1.50 - 6.50 K/cumm Comment:Testing performed by : [address] [address] Imm gran abs 0.02 0.00 - 0.10 K/cumm SHEELA Comment:Testing performed by : [address] [address] Lymphocyte abs 2.70 0.80 - 3.30 K/cumm SHE[facility]A Comment:Testing performed by : [address] [address] Monocyte abs 0.61 0.20 - 0.80 K/cumm SHE[facility]A Comment:Testing performed by : [address] [address] Eosinophil abs 0.32 0.00 - 0.50 K/cumm SHEELA Comment:Testing performed by : [address] [address] Basophil abs 0.05 0.00 - 0.10 K/cumm SHEELA Comment:Testing performed by : [address] [address] Neutrophil pct 43.7 % [facility] Comment: Interpretive Data Percent cell count reference ranges are not reported, since discordance with absolute values may lead to misinterpretation of CBC data. Current Interpretive Data was last revised on 2017. Testing performed by: [address] [address] Imm gran pct 0.3 % [facility]A Comment: Interpretive Data Percent cell count reference ranges are not reported, since discordance with absolute values may lead to misinterpretation of CBC data. Current Interpretive Data was last revised on 2017. Testing performed by: [address] [address] Lymphocyte pct 41.0 % SHEELA Comment: Interpretive Data Percent cell count reference ranges are not reported, since discordance with absolute values may lead to misinterpretation of CBC data. Current Interpretive Data was last revised on 2017. Testing performed by: [address] [address] Monocyte pct 9.3 % [facility]A Comment: Interpretive Data Percent cell count reference ranges are not reported, since discordance with absolute values may lead to misinterpretation of CBC data. Current Interpretive Data was last revised on 2017. Testing performed by: [address] [address] Eosinophil pct 4.9 % SHEELA Comment: Interpretive Data Percent cell count reference ranges are not reported, since discordance with absolute values may lead to misinterpretation of CBC data. Current Interpretive Data was last revised on 2017. Testing performed by: [address] [address] Basophil pct 0.8 % SHEELA Comment: Interpretive Data Percent cell count reference ranges are not reported, since discordance with absolute values may lead to misinterpretation of CBC data. Current Interpretive Data was last revised on 2017. Testing performed by: [address] [address] Blood 10/30/2024 6:02 AM CDT 10/30/2024 6:40 AM CDT Devante Swenson MD LAB BLOOD ORDERABLES Final Result [facility] [address] [facility] [place] [address] * (ABNORMAL) CBC with auto differential (10/30/2024 6:02 AM CDT) WBC 6.58 3.80 - 9.90 K/cumm Comment:Testing performed by : [address] [address] Hgb 13.9 11.9 - 15.5 g/dL SHEELA PERDOMO Comment:Testing performed by : [address] [address] Hct 39.0 35.6 - 45.5 % SHEELA PERDOMO Comment:Testing performed by : [address] [address] Plt 198 150 - 400 K/cumm SHEELA PERDOMO Comment:Testing performed by : [address] [address] MPV 10.0 9.1 - 12.3 fL SHEELA PERDOMO Comment:Testing performed by : [address] [address] RBC 3.97 3.90 - 5.20 M/cumm SHEELA PERDOMO Comment:Testing performed by : [address] [address] MCV 98.2(H) 81.3 - 96.4 fL SHEELA PERDOMO Comment:Testing performed by : [address] [address] MCH 35.0(H) 27.1 - 33.3 pg SHEELA PERDOMO Comment:Testing performed by : [address] [address] MCHC 35.6 32.3 - 35.7 g/dL SHEELA PERDOMO Comment:Testing performed by : [address], [address] RDW CV 12.5 11.1 - 14.9 % SHEELA PERDOMO Comment:Testing performed by : [address] [address] RDW SD 45.0 35.7 - 48.1 fL SHEELA PERDOMO Comment:Testing performed by : [address], [address] NRBC abs 0.00 0.00 - 0.01 K/cumm SHEELA PERDOMO Comment:Testing performed by : [address], [address] Blood 10/30/2024 6:02 AM CDT 10/30/2024 6:40 AM CDT us Devante Swenson MD LAB BLOOD ORDERABLES Final Result SHEELA [address] [facility] [place] [address] * (ABNORMAL) Hemoglobin A1c (10/30/2024 6:02 AM CDT) Hgb A1C 7.3(H) 4.0 - 5.6 % Comment:Testing performed by : [address] [address] Estimated Average Glucose 163 mg/dL SHEELA PERDOMO Comment: The ADA recommends reporting an estimated Average Glucose (eAG) with all Hemoglobin A1c results using the equation derived from a study of 507 normal and diabetic adults. Minority populations were underrepresented and children were not included. (Diabetes Care 31:3597-5902, 2008). The eAG is not equivalent to a fasting glucose. Testing performed by: [address] [address] Blood 10/30/2024 6:02 AM CDT 10/30/2024 6:40 AM CDT Tank Still MD LAB BLOOD ORDERABLES Final Result SHEELA [address] [facility] [place] [address] * (ABNORMAL) Lipid panel (10/30/2024 6:02 AM CDT) Cholesterol 232(H) 30 - 199 mg/dL Comment: Interpretive Data Ages < or = 19 years Acceptable: <170 mg/dL Borderline high: 170-199 mg/dL High: >or= 200 mg/dL Ages > or = 20 years Desirable: <200 mg/dL Borderline high: 200-239 mg/dL High: >or= 240 mg/dL Literature References: 1. Expert Panel on Integrated Guidelines for Cardiovascular Health and Risk Reduction in Children and Adolescents. Pediatrics 2011;128:S213 2. NCEP Expert Panel. Circulation 2004;110:227 Current Interpretive Data was last revised on 2017. Testing performed by: [address] [address] Triglycerides 287(H) <=149 mg/dL SHEELA PERDOMO Comment: Interpretive Data Ages < or = 9 years Acceptable: <75 mg/dL Borderline high: 75-99 mg/dL High: >or= 100 mg/dL Ages 10 to 20 years Acceptable: <90 mg/dL Borderline high: 90-129 mg/dL High: >or= 130 mg/dL Ages > or = 20 years Desirable: <150 mg/dL Borderline high: 150-199 mg/dL High: 200-499 mg/dL Very high: >or= 499 mg/dL Literature References: 1. Expert Panel on Integrated Guidelines for Cardiovascular Health and Risk Reduction in Children and Adolescents. Pediatrics 2011;128:S213 2. NCEP Expert Panel. Circulation 2004;110:227 Current Interpretive Data was last revised on 2017. Testing performed by: [address] [address] HDL 38(L) >=40 mg/dL SHEELA Comment: Interpretive Data Ages < or = 19 years Acceptable: >45 mg/dL Borderline low: 40-45 mg/dL Low: <40 mg/dL Ages > or = 20 years Desirable: >or= 60 mg/dL Low: <40 mg/dL Literature References: 1. Expert Panel on Integrated Guidelines for Cardiovascular Health and Risk Reduction in Children and Adolescents. Pediatrics 2011;128:S213 2. NCEP Expert Panel. Circulation 2004;110:227 Current Interpretive Data was last revised on 2017. Testing performed by: [address] [address] LDL, calculated 142(H) <=129 mg/dL SHEELA Comment: Interpretive Data Ages < or = 19 years Acceptable: <110 mg/dL Borderline high: 110-129 mg/dL High: >or= 130 mg/dL Ages > or = 20 years Optimal: <100 mg/dL Near optimal: 100-129 mg/dL Borderline high: 130-159 mg/dL High: >160 mg/dL Calculated using the Raúl LDL-C estimating equation. This equation was implemented on 2023. Prior to this date LDL-C was estimated using the Friedewald equation. Literature References: 1. Expert Panel on Integrated Guidelines for Cardiovascular Health and Risk Reduction in Children and Adolescents. Pediatrics 2011;128:S213 2. NCEP Expert Panel. Circulation 2004;110:227 3. Raúl Uribe et al. BRIAN Cardiol. 2020 June 14;5(5):540-546. doi: 10.1001/[email or web address] Current Interpretive Data was last revised on 2023. Testing performed by: [address] [address] Non-HDL Cholesterol 194 mg/dL SHEELA PERDOMO Comment: Interpretive Data Ages < or = 19 years Acceptable: <120 mg/dL Borderline high: 120-144 mg/dL High: >145 mg/dL Ages > or = 20 years When triglycerides are >200 mg/dL, Non-HDL cholesterol is a secondary target of therapy with treatment goals that are 30 mg/dL greater than the LDL cholesterol target. Literature References: 1. Expert Panel on Integrated Guidelines for Cardiovascular Health and Risk Reduction in Children and Adolescents. Pediatrics 2011;128:S213 2. NCEP Expert Panel. Circulation 2004;110:227 Current Interpretive Data was last revised on 2017. Testing performed by: [address] [address] Chol/HDL ratio 6 SHEELA Comment:Testing performed by : [address] [address] Blood 10/30/2024 6:02 AM CDT 10/30/2024 6:40 AM CDT Tank Still MD LAB BLOOD ORDERABLES Final Result [facility] [address] [facility] of [facility] [place], [place] [id number] * Comprehensive metabolic panel (10/30/2024 6:02 AM CDT) Sodium 138 135 - 145 mmol/L Comment:Testing performed by : [address] [address] Potassium, pl 4.1 3.3 - 4.9 mmol/L SHEELA PERDOMO Comment:Testing performed by : [address] [address] Chloride 103 97 - 110 mmol/L SHEELA PERDOMO Comment:Testing performed by : [address] [address] CO2 24 22 - 32 mmol/L SHEELA Comment:Testing performed by : [address] [address] Anion gap 11 2 - 15 mmol/L SHEELA Comment:Testing performed by : [address], [place]., [address] BUN 17 6 - 25 mg/dL SHEELA Comment:Testing performed by : [address], [place]., [address] Creatinine 0.79 0.60 - 1.10 mg/dL SHEELA Comment:Testing performed by : [address] [address] Glucose 178 70 - 199 mg/dL SHEELA Comment: Interpretive Data Fasting glucose >/= 126 mg/dl is diagnostic for diabetes. Fasting is defined as no caloric intake for at least 8 hours. Fasting glucose between 100 mg/dl to 125 mg/dl is diagnostic of prediabetes. In a patient with classic symptoms of hyperglycemia or hyperglycemic crisis, a random glucose >/= 200 mg/dl is diagnostic for diabetes. In the absence of unequivocal hyperglycemia, results should be confirmed by repeat testing. The classification and Diagnosis of Diabetes Diabetes Care 2021; 46: S19-S40. Current interpretive data was last revised 2022. Testing performed by: [address] [address] Calcium 9.5 8.5 - 10.3 mg/dL SHEELA Comment:Testing performed by : [address] [address] Bilirubin, total 0.3 0.1 - 1.2 mg/dL SHEELA Comment:Testing performed by : [address] [address] Protein, pl 6.7 6.5 - 8.5 g/dL SHEELA Comment:Testing performed by : [address] [address] Albumin 4.3 3.5 - 5.0 g/dL SHEELA Comment:Testing performed by : [address] [address] Alk phos 90 40 - 130 Units/L SHEELA PERDOMO Comment:Testing performed by : [address] [address] ALT 9 7 - 45 Units/L SHEELA PERDOMO Comment:Testing performed by : [address] [address] AST 13 10 - 45 Units/L SHEELA PERDOMO Comment:Testing performed by : [address] [address] Blood 10/30/2024 6:02 AM CDT 10/30/2024 6:40 AM CDT Devante Swenson MD LAB BLOOD ORDERABLES Final Result Performing Organization Address City/[facility]/ZIP Co de Phone Number [address] [place] [address] * Erythrocyte sedimentation rate (10/30/2024 12:28 AM CDT) Erythrocyte sedimentation rate 17 1 - 30 mm/hr Comment:Testing performed by : [address], [address] Blood 10/30/2024 12:2 8 AM CDT 10/30/2024 12:43 AM CDT Satya Nunez Jr., MD LAB BLOOD ORDERABLES F inal Result Performing Organization Address City/[facility] Co de Phone Number [address] [address] * Troponin T high-sensitivity 4-hour (10/29/2024 11:03 PM CDT) Trop T hs 8 <=14 ng/L Comment: Interpretive Data For further hscTnT resources including the diagnostic algorithm and an aid in interpretation, copy and paste this link: [email or web address].[email or web address]/[email or web address] Current Interpretive Data last revised 2019. Testing performed by: [address] [address] Trop T hs delta 1 ng/L SHEELA PERDOMO Comment:Testing performed by : [address] [address] Trop T hs interp Insignificant SHEELA PERDOMO Comment:Testing performed by : [address] [address] Blood 10/29/2024 11:0 3 PM CDT 10/29/2024 11:10 PM CDT Loc FAYE LAB BLOOD ORDERABL ES Final Result SHEELA [address] [facility] [place] [address] * (ABNORMAL) Urinalysis reflex to microscopic and culture Urine (10/29/2024 8:58 PM CDT) Color, ur Yellow Yellow Comment:Testing performed by : [address] [address] Clarity, ur Cloudy(A) Clear SHEELA Comment:Testing performed by : [address] [address] Specific gravity, ur 1.017 1.003 - 1.030 SHEELA Comment:Testing performed by : [address] [address] pH, urine 5.5 SHEELA Comment: Interpretive Data U rine pH is affected by diet, medications, systemic acid-base disturbances, and renal tubular function. pH may affect urinary stone formation. For example, urine pH below 6.0 may help reduce the tendency for calcium phosphate stones and pH greater than 6.0 may reduce the tendency for uric acid stone formation. Source: [facility] [employer] Current Interpretive Data was last revised on 2017 Testing performed by: [address] [address] Protein, ur ql Negative Negative SHEELA Comment:Testing performed by : [address] [address] Glucose, ur ql 3+(A) Negative SHEELA Comment:Testing performed by : [address] [address] Ketones, ur Negative Negative SHEELA PERDOMO Comment:Testing performed by : [facility], [address] [place] [address]., [address] Bilirubin, ur Negative Negative SHEELA PERDOMO Comment:Testing performed by : [facility], [address] [place] [address], [place]., [address] Blood, ur Negative Negative SHEELA PERDOMO Comment:Testing performed by : [address], [place]., [address] Urobilinogen, ur <2.0 <2.0 mg/dL SHEELA PERDOMO Comment:Testing performed by : [address], [place]., [address] Nitrite, ur Negative Negative SHEELA PERDOMO Comment:Testing performed by : [address] [address] Leukocyte esterase, ur 2+(A) Negative SHEELA PERDOMO Comment:Testing performed by : [address], [place]., [address] UA reflex comment Reflex to microscopic UA will be performed. SHEELA PERDOMO Comment:Testing performed by : [address], [place]., [address] Urine 10/29/2024 8:58 PM CDT 10/29/2024 9:00 PM CDT Satya Nunez Jr., MD LAB MICROBIOLOGY - GEN ERAL ORDERABLES Final Result SHEELA [address] [facility] of [facility] [place], [place] [id number] * (ABNORMAL) Urinalysis, microscopic only (10/29/2024 8:58 PM CDT) WBC, ur 0-5 0 - 5 /HPF Comment:Testing performed by : [address] [address] RBC, ur 3-5(A) 0 - 2 /HPF SHEELA PERDOMO Comment:Testing performed by : [address] [address] Epithelial cells, squamous, ur 11-20(A) 0 - 5 /HPF SHEELA PERDOMO Comment:Testing performed by : [facility], [address] [place] [address]., [address] Mucous, ur Present(A) SHEELA Comment:Testing performed by : [address] [address] Calcium oxalate crystals, ur 1+(A) SHEELA Comment:Testing performed by : [address], [place]., [address] Hyaline casts, ur 1-5 0 - 10 /LPF SHEELA Comment:Testing performed by : [address] [address] Culture Reflex Comment Reflex conditions for urine culture (WBC >10) not met. SHEELA Comment:Testing performed by : [address] [address] Urine 10/29/2024 8:58 PM CDT 10/29/2024 9:00 PM CDT us Satya Nunez Jr., MD LAB URINE ORDERABLES F inal Result [facility] [address] [facility] Department of Laboratories [place], [place] [id number] * Troponin T high-sensitivity 2-hour (10/29/2024 8:49 PM CDT) Trop T hs 8 <=14 ng/L Comment: Interpretive Data For further hscTnT resources including the diagnostic algorithm and an aid in interpretation, copy and paste this link: [email or web address].[email or web address]/show/[email or web address] Current Interpretive Data last revised 2019. Testing performed by: [address] [address] Trop T hs delta 1 ng/L SHEELA Comment:Testing performed by : [address] [address] Trop T hs interp Insignificant SHEELA Comment:Testing performed by : [address] [address] Blood 10/29/2024 8:49 PM CDT 10/29/2024 9:00 PM CDT Loc FAYE LAB BLOOD ORDERABL ES Final Result SHEELA [address] [facility] [place] [address] * CT Head WO Contrast (10/29/2024 7:02 PM CDT) Anatomical Region Laterality Modality Head and Neck N/A Computed Tomogra phy 10/29/2024 8:20 PM CDT Narrative 10/29/2024 8:23 PM CDT EXAM DESCRIPTION: CT HEAD WO CONTRAST REASON FOR STUDY: Headache, sudden, severe c/o NAVAS on/off for a few wks along with some visual issues for 2 wks. Pt states she was seeing wavy lines and spots. Pt today approx 1530 she states she has been having difficulty getting her words out. Pt states NAVAS is always on the LT side TECHNIQUE: Axial images acquired through the brain without intravenous contrast. Images stored on PACS. Automated exposure control was used as a dose optimization technique for this examination. COMPARISON: None available FINDINGS: BRAIN: No hemorrhage, edema or mass effect. No recent infarct. Nonspecific periventricular and subcortical white matter hypoattenuation which can be seen as sequela of chronic small vessel ischemic disease. There is age-appropriate mild cerebral volume loss. No acute intraventricular hemorrhage. Basal cisterns are patent. No midline shift. EXTRA-AXIAL SPACES: No fluid collections. No masses. CALVARIUM: No fracture. SINUSES/MASTOIDS: Mild mucosal thickening of the ethmoid air cells. Otherwise, no fluid or mucosal thickening. ORBITS: No significant abnormality. OTHER: No other significant abnormality. IMPRESSION: No acute intracranial findings. THIS IS AN ELECTRONICALLY VERIFIED FINAL REPORT 10/29/2024 8:23 PM - Electronically signed by Radha Marcos M.D. AT: AT Report ID: [id number] Reading Location: [id number] Procedure Note Radha Marcos MD - 10/29/2024 EXAM DESCRIPTION: CT HEAD WO CONTRAST REASON FOR STUDY: Headache, sudden, severe c/o NAVAS on/off for a few wks along with some visual issues for 2 wks. Ptstates she was seeing wavy lines and spots. Pt today approx 1530 she states shehas been having difficulty getting her words out. Pt states NAVAS is always onthe LT side TECHNIQUE: Axial images acquired through the brain without intravenous contrast. Images stored on PACS. Automated exposure control was used asa dose optimization technique for this examination. COMPARISON: None available FINDINGS: BRAIN: No hemorrhage, edema or mass effect. No recent infarct. Nonspecific periventricular and subcortical white matter hypoattenuationwhich can be seen as sequela of chronic small vessel ischemic disease. There is age-appropriate mild cerebral volume loss. No acute intraventricular hemorrhage. Basal cisterns are patent. No midline shift. EXTRA-AXIAL SPACES: No fluid collections. No masses. CALVARIUM: No fracture. SINUSES/MASTOIDS: Mild mucosal thickening of the ethmoid air cells. Otherwise, no fluid or mucosal thickening. ORBITS: No significant abnormality. OTHER: No other significant abnormality. IMPRESSION: No acute intracranial findings. THIS IS AN ELECTRONICALLY VERIFIED FINAL REPORT 10/29/2024 8:23 PM - Electronically signed by Radha Marcos M.D. AT: AT Report ID: [id number] Reading Location: [id number] Satya Nunez Jr., MD IMG CT PROCEDURES Guera l Result * ECG 12 lead (10/29/2024 6:57 PM CDT) Ventricular Rate EKG/Min 68 BPM [facility] Atrial Rate 68 BPM [facility] IA-Interval (MSEC) 128 ms [facility] QRS-Interval (MSEC) 84 ms [facility] QT-Interval (MSEC) 426 ms [facility] QTc 452 ms [facility] P Cascade 5 degrees [facility] R Cascade 63 degrees [facility] T Cascade 54 degrees [facility] Diagnosis Normal sinus rhythm Low voltage QRS Nonspecific T wave abnormality Abnormal ECG No previous ECGs available Confirmed by RUBEN SCHROEDER M.D. ([id number]) on 10/31/2024 6:41:26 AM [facility] 10/29/2024 6:57 PM CDT 10/31/2024 6:41 AM CDT us Satya Nunez Jr., MD ECG ORDERABLES Final Result Performing Organization Address [facility] Co de Phone Number [facility] * Troponin T high-sensitivity series (baseline, 2hr, 4hr, 6hr) (10/29/2024 6:55 PM CDT) Pathologist [facility] Trop T hs 7 <=14 ng/L Comment: Interpretive Data For further hscTnT resources including the diagnostic algorithm and an aid in interpretation, copy and paste this link: [email or web address].[email or web address]/[email or web address] Current Interpretive Data last revised 2019. Testing performed by: [facility], [address] [place] [address]., [address] Blood 10/29/2024 6:55 PM CDT 10/29/2024 7:04 PM CDT us aStya Nunez Jr., MD LAB BLOOD ORDERABLES F inal Result Performing Organization Address City/[facility]/ZIP Co de Phone Number [place] [phone] [facility] [place] [address] * eGFR (10/29/2024 6:55 PM CDT) eGFR 66 >=60 mL/min/1. 73 m2 Comment: Interpretive Data Reference Interval Normal >/= 90 mL/min/1.73m2 Mildly decreased* 60 - 89 mL/min/1.73m2 Mildly to moderately decreased 45 - 59 mL/min/1.73m2 Moderately to severely decreased 30 - 44 mL/min/1.73m2 Severely decreased 15 - 29 mL/min/1.73m2 Kidney Failure < 15 mL/min/1.73m2 *Relative to young adult level Estimated glomerular filtration rate is determined by the 2020 CKD-EPI equation recommended by the National Kidney Foundation (A Unifying Approach to GFR Estimation: Recommendations of the NKF-ASK Task Force on Reassessing the Inclusion of Race in Diagnosing Kidney Disease, JASN 2020). The CKD-EPI equation should not be used for patients with unstable renal function and has not been validated in children and those over 70. Current interpretive data was last reviewed 2020. Testing performed by: [address] [address] Blood 10/29/2024 6:55 PM CDT 10/29/2024 7:04 PM CDT Satya Nunez Jr., MD LAB BLOOD ORDERABLES F inal Result [facility] [place] [address] * (ABNORMAL) Differential, auto (10/29/2024 6:55 PM CDT) Neutrophil abs 4.60 1.50 - 6.50 K/cumm Comment:Testing performed by : [address] [address] Imm gran abs 0.03 0.00 - 0.10 K/cumm SHEELA Comment:Testing performed by : [address] [address] Lymphocyte abs 3.17 0.80 - 3.30 K/cumm SHEELA Comment:Testing performed by : [address] [address] Monocyte abs 0.82(H) 0.20 - 0.80 K/cumm SHEELA Comment:Testing performed by : [address] [address] Eosinophil abs 0.33 0.00 - 0.50 K/cumm SHEELA Comment:Testing performed by : [address] [address] Basophil abs 0.05 0.00 - 0.10 K/cumm SHEELA Comment:Testing performed by : [address] [address] Neutrophil pct 51.1 % SHEELA Comment: Interpretive Data Percent cell count reference ranges are not reported, since discordance with absolute values may lead to misinterpretation of CBC data. Current Interpretive Data was last revised on 2017. Testing performed by: [address] [address] Imm gran pct 0.3 % [facility] Comment: Interpretive Data Percent cell count reference ranges are not reported, since discordance with absolute values may lead to misinterpretation of CBC data. Current Interpretive Data was last revised on 2017. Testing performed by: [address] [address] Lymphocyte pct 35.2 % [facility] Comment: Interpretive Data Percent cell count reference ranges are not reported, since discordance with absolute values may lead to misinterpretation of CBC data. Current Interpretive Data was last revised on 2017. Testing performed by: [address] [address] Monocyte pct 9.1 % [facility] Comment: Interpretive Data Percent cell count reference ranges are not reported, since discordance with absolute values may lead to misinterpretation of CBC data. Current Interpretive Data was last revised on 2017. Testing performed by: [address] [address] Eosinophil pct 3.7 % [facility] Comment: Interpretive Data Percent cell count reference ranges are not reported, since discordance with absolute values may lead to misinterpretation of CBC data. Current Interpretive Data was last revised on 2017. Testing performed by: [address] [address] Basophil pct 0.6 % [facility] Comment: Interpretive Data Percent cell count reference ranges are not reported, since discordance with absolute values may lead to misinterpretation of CBC data. Current Interpretive Data was last revised on 2017. Testing performed by: [address] [address] Blood 10/29/2024 6:55 PM CDT 10/29/2024 7:04 PM CDT us Satya Nunez Jr., MD LAB BLOOD ORDERABLES F inal Result [facility] [address] [facility] [place] [address] * (ABNORMAL) CBC with auto differential (10/29/2024 6:55 PM CDT) [facility] WBC 9.00 3.80 - 9.90 K/cumm Comment:Testing performed by : [address] [address] Hgb 14.8 11.9 - 15.5 g/dL SHEELA Comment:Testing performed by : [address] [address] Hct 41.9 35.6 - 45.5 % SHEELA Comment:Testing performed by : [address] [address] Plt 233 150 - 400 K/cumm SHEELA Comment:Testing performed by : [address] [address] MPV 9.7 9.1 - 12.3 fL SHEELA Comment:Testing performed by : [address] [address] RBC 4.18 3.90 - 5.20 M/cumm SHEELA Comment:Testing performed by : [address] [address] MCV 100.2(H) 81.3 - 96.4 fL SHEELA Comment:Testing performed by : [address] [address] MCH 35.4(H) 27.1 - 33.3 pg SHEELA PERDOMO Comment:Testing performed by : [address] [address] MCHC 35.3 32.3 - 35.7 g/dL SHEELA PERDOMO Comment:Testing performed by : [address] [address] RDW CV 12.6 11.1 - 14.9 % SHEELA PERDOMO Comment:Testing performed by : [address] [address] RDW SD 46.5 35.7 - 48.1 fL SHEELA PERDOMO Comment:Testing performed by : [address] [address] NRBC abs 0.00 0.00 - 0.01 K/cumm SHEELA Comment:Testing performed by : [address] [address] Blood 10/29/2024 6:55 PM CDT 10/29/2024 7:04 PM CDT Satya Nunez Jr., MD LAB BLOOD ORDERABLES F inal Result Performing Organization Address [facility] Co de Phone Number [address] [place] [address] * aPTT (10/29/2024 6:55 PM CDT) aPTT 25 22 - 37 sec Comment: Interpretive data aPTT test has not been evaluated for monitoring heparin therapy. The anti-Xa is the preferred test. Current interpretive data was last revised on 2019. Testing performed by: [address] [address] Blood 10/29/2024 6:55 PM CDT 10/29/2024 7:04 PM CDT Satya Nunez Jr., MD LAB BLOOD ORDERABLES F inal Result Performing Organization Address [facility] Co de Phone Number [address] [place] [address] * Protime-INR (10/29/2024 6:55 PM CDT) PT 13.1 12.0 - 14.6 sec Comment:Testing performed by : [address] [address] INR 1.0 0.9 - 1.2 SHEELA PERDOMO Comment: Interpretive data Oral anticoagulant therapeutic ranges: Venous thromboembolism prophylaxis or treatment: 2.0-3.0 CARDIOLOGY Standard range: 2.0-3.0 High-intensity range: 2.5-3.5 Refer to indication-specific guidelines for appropriate target ranges for prosthetic heart valve replacement. Current interpretive data was last revised on 2019. Testing performed by: [address] [address] Blood 10/29/2024 6:55 PM CDT 10/29/2024 7:04 PM CDT us Satya Nunez Jr., MD LAB BLOOD ORDERABLES F inal Result SHEELA [address] [facility] [place] [address] * Comprehensive metabolic panel (10/29/2024 6:55 PM CDT) Sodium 138 135 - 145 mmol/L Comment:Testing performed by : [address] [address] Potassium, pl 4.3 3.3 - 4.9 mmol/L SHEELA Comment: Hemolyzed; Potassium value may be falsely elevated by as much as 1.0 mmol/L. Suggest redraw and reanalysis. Testing performed by: [address] [address] Chloride 102 97 - 110 mmol/L SHEELA Comment:Testing performed by : [address] [address] CO2 24 22 - 32 mmol/L SHEELA Comment:Testing performed by : [address] [address] Anion gap 12 2 - 15 mmol/L SHEELA Comment:Testing performed by : [address] [address] BUN 22 6 - 25 mg/dL SHEELA Comment:Testing performed by : [address] [address] Creatinine 0.92 0.60 - 1.10 mg/dL SHEELA Comment:Testing performed by : [address] [address] Glucose 93 70 - 199 mg/dL SHEELA Comment: Interpretive Data Fasting glucose >/= 126 mg/dl is diagnostic for diabetes. Fasting is defined as no caloric intake for at least 8 hours. Fasting glucose between 100 mg/dl to 125 mg/dl is diagnostic of prediabetes. In a patient with classic symptoms of hyperglycemia or hyperglycemic crisis, a random glucose >/= 200 mg/dl is diagnostic for diabetes. In the absence of unequivocal hyperglycemia, results should be confirmed by repeat testing. The classification and Diagnosis of Diabetes Diabetes Care 2021; 46: S19-S40. Current interpretive data was last revised 2022. Testing performed by: [address] [address] Calcium 10.1 8.5 - 10.3 mg/dL SHEELA Comment:Testing performed by : [address] [address] Bilirubin, total 0.3 0.1 - 1.2 mg/dL SHEELA Comment:Testing performed by : [address] [address] Protein, pl 7.3 6.5 - 8.5 g/dL SHEELA Comment:Testing performed by : [address] [address] Albumin 4.6 3.5 - 5.0 g/dL SHEELA Comment:Testing performed by : [address] [address] Alk phos 98 40 - 130 Units/L SHEELA Comment:Testing performed by : [address] [address] ALT 9 7 - 45 Units/L SHEELA Comment:Testing performed by : [address] [address] AST 16 10 - 45 Units/L SHEELA Comment: Hemolyzed; result may be falsely elevated Testing performed by: [address] [address] Blood 10/29/2024 6:55 PM CDT 10/29/2024 7:04 PM CDT us Satya Nunez Jr., MD LAB BLOOD ORDERABLES F inal Result Performing Organization Address City/[facility] Co de Phone Number SHEELA [address] [address] * POCT glucose (10/29/2024 6:47 PM CDT) [facility] Signature Glucose, POC 97 70 - 199 mg/dL Comment:Testing performed by : [facility], [address] [place] [address]., [address] Blood 10/29/2024 6:47 PM CDT 10/29/2024 6:47 PM CDT us Notinfile Unknown LAB POCT ORDERABLES - DEVICE F inal Result Performing Organization Address [facility] Co de Phone Number SHEELA [address] [place] [address] from Last 3 Months Insurance MEDICARE [employer] Advance Directives For more information, please contact: [phone] * Full Code (Latest Code Status on File) Date Activated Date Inactivated Comments 12/03/2024 11:59 AM 12/04/2024 6:49 PM * Full Code Date Activated Date Inactivated Comments 11/27/2024 8:49 PM 11/29/2024 3:12 PM * Full Code Date Activated Date Inactivated Comments 10/30/2024 3:03 AM 10/31/2024 3:13 PM Care Teams Claims Investigator Relationship Specialty Start Date End Date Senia Multani NP [address] [place] [address] PCP - General Nurse Practitioner 11/21/24 Sandro Wilson MD Referring Physician Cardiology 11/12/24 Senia Multani NP [address] [place] [address] Nurse Practitioner 11/12/24
--- OUTSIDE RECORDS SUMMARY | 2024-12-20 13:05 | XMS_ITS | Encounter Summary ---
Author Organization [facility] Address [address] [place] [address] Phone Care Team Providers Care Tactical Deception Plans Officer Name Role Phone Senia Multani APRN, NEFTALI Primary Care Pro vider Mikayla Osorio APRN, GRAVITY PROSPECTING OBSERVER HELPER Unavailable Encounter Details Date Type Department Care Team (Late st Contact Info) Description 12/16/2021 [facility] [address] [place] [address] Arely Clemens, PAC [address] [place] [address] Neoplasm of unspecified behavior of [...] on file Legal Sex Female 8:15 PM LATHE SPOTTER Gender Identity Not on file Sexual Orientation Not on file documented as of this encounter Plan of Treatment Upcoming Encounters Date Type Department Care Team (Late st Contact Info) Description 01/02/2025 7:20 AM LATHE SPOTTER Office Visit [facility] - Primary Care [facility] [address] [place] [id number] Senia Multani, REGISTERED NURSE MATERNITY, GRAVITY PROSPECTING OBSERVER HELPER [address] [place] [address] documented as of this encounter Procedures Procedure Name Priority Date/Time Associated Diagnosis Comments PATHOLOGY SURGICAL Routine 12/15/2021 10 :12 AM CDT Neoplasm of unspecified behavior of bone, soft tissue, and skin documented in this encounter Results * PATHOLOGY SURGICAL (12/15/2021 10:12 AM CDT) Case Report Surgical Pathology Report Case: [id number] Authorizing Provider: Arely Clemens PAC Collected: 12/15/2021 10:12 AM Ordering Location: [facility]: 12/16/2021 09:55 AM [facility] Laboratory Services Pathologist: Kevyn Montero MD Specimens: A) - Skin, RIGHT MID ABDOMEN B) - Skin, LEFT MEDIAL ANKLE 12/24/2021 11:40 AM [address] [facility] FINAL DIAGNOSIS A. 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 SKIN LESION, LEFT MEDIAL ANKLE, SHAVE BIOPSY: - BENIGN LENTIGO - NEGATIVE FOR ATYPICAL MELANOCYTIC PROLIFERATION 12/24/2021 11:40 AM LATHE SPOTTER [facility] at 1140 LATHE SPOTTER Comment A. A MART-1/Melan-A immunohistochemical stain was performed with appropriate tissue control which highlights the melanocytes of lentiginous junctional nevus. The lesion is present at the margin of the biopsy. No pagetoid spread of melanocytes, melanocytic atypia or architectural disorder is noted. Clinicopathologic correlation is necessary. B.A MART-1/Melan-A immunohistochemical stain was performed with appropriate tissue control. The immunohistochemical staining pattern is consistent with lentigo. Increased basal layer hyperpigmentation noted. No malignant melanocytic proliferation is identified. Clinicopathologic correlation is necessary. For quality assurance project manager purposes, this case was reviewed by Dr. Steve Plasencia who concurs with the diagnosis. Immunoperoxidase stains are performed on formalin-fixed paraffin-embedded tissue. A validated detection system is utilized. Positive and negative controls are utilized to evaluate the specimen results. Please contact the pathology department at [place], [place], if specific information regarding antibody clone is needed. Per CAP requirements, this lab uses the clone [id number] for ER, clone [id number] for NC, and clone [id number] for HER2/isaias. This test was developed and its performance characteristics determined by [place], [place]. It has not been cleared or approved by the U.S. Food and Drug Administration. The FDA has determined that such clearance or approval is not necessary. This test is used for clinical purposes. It should not be regarded as investigational or for research. This laboratory is certified under the Clinical Laboratory Improvement Amendments of 1988 (CLIA) as qualified to perform high complexity clinical laboratory testing. 12/24/2021 11:40 AM LATHE SPOTTER [facility] Clinical Information Atypical nevus 12/24/2021 11:[address] [facility] Gross Description A. RIGHT MID ABDOMEN The specimen is labeled Cinthia Vela , and are submitted in two parts, A and B. The name and [facility] number match. The specimen is labeled right mid abdomen. Received in formalin is an unoriented shave fragment of villalobos-white skin measuring 0.4 x 0.4 x 0.1 cm. The surface contains a brown discoloration measures 0.1 cm in diameter The specimen is inked with blue ink for identification purposes. The tissue is bisected and submitted in block A1. CE/1/LX3 B. LEFT MEDIAL ANKLE The specimen is labeled left medial ankle. Received in formalin is an unoriented shave fragment of villalobos-white skin measuring 0.4 x 0.4 x 0.1 cm. The surface contains a scabbed lesion. The lesion is present at the margin. The specimen is inked with blue ink for identification purposes. The tissue is bisected and submitted in block B1. CE/1/LX3 12/24/2021 11:40 AM LATHE SPOTTER [facility] Other SPECIMEN FROM SKIN / Unknown 12/15/2021 10:12 AM CDT 12/16/2021 9:55 AM CDT Specimen of unknown material (specimen) SPECIMEN FROM SKIN / Unknown 12/15/2021 10:12 AM CDT 12/16/2021 9:55 AM CDT us Arely Clemens PAC PATHOLOGY/CYTOLOGY ORDERABLES Fi nal Result [facility] [address] [place] [address], documented in this encounter Visit Diagnoses Diagnosis Neoplasm of unspecified behavior of bone, soft tissue, and skin documented in this encounter Additional Health Concerns Infection Onset Date Last Indicated Resolved Time C. difficile Rule-Out 02/04/2024 02/04/20242023 8:25 AM LATHE SPOTTER C. difficile 02/04/2024 02/04/2024 05/04/2024 12:1 6 AM CDT Respiratory Rule-Out 02/13/2024 02/13/2024 024 1:58 PM LATHE SPOTTER Assessment Noted Time PHQ-9 Depression Total Score: 1 08/29/19 21 10:29 AM CDT documented as of this encounter Care Teams Tactical Deception Plans Officer Relationship Specialty Start Date End Date Senia Multani APRN, GRAVITY PROSPECTING OBSERVER HELPER [address] [place] [address] PCP - General Advanced Practice Nurse 06/03/17 Mikayla Osorio APRN, GRAVITY PROSPECTING OBSERVER HELPER [address] [place] [address] Nurse Practitioner Pulmonary Disease 11/06/20 documented as of this encounter
--- OUTSIDE RECORDS SUMMARY | 2024-12-20 13:05 | XMS_ITS | Encounter Summary ---
Author Organization [facility] Address [address] [place] [address] Phone Care Team Providers Care Ticket Collector Or Usher Name Role Phone Senia Multani APRN Primary Care Provider Encounter Details Date Type Department Care Team (Late st Contact Info) Description 07/17/2019 Telephone [facility] [address] [place] [address] Blair Pena MD [address] [place] [address] Social History Tobacco Use Types Packs/Day Years [...] on file Legal Sex Female 8:07 AM METALLURGICAL ANALYST Gender Identity Not on file Sexual Orientation Not on file COVID-19 Exposure Response Date Recorded In the last month, have you been in contact with someone who was confirmed or suspected to have Coronavirus / COVID-19? No / Unsure 07/16/2019 10:21 AM CDT documented as of this encounter Miscellaneous Notes * Telephone Encounter - Erika Lopez RN - 07/17/2019 1:25 PM CDT Informed patient of negative COVID-19 results. Instructed patient to continue to quarantine until surgery or procedure report time. Should you experience any new symptoms of COVID 19 prior to your surgery/ procedure, please notify your surgeon immediately. Patient verbalized understanding of instructions. Routing negative results to provider documented in this encounter Plan of Treatment Upcoming Encounters Date Type Department Care Team (Late st Contact Info) Description 03/21/2025 9:15 AM METALLURGICAL ANALYST Office Visit [facility] Dermatology [address] [address] Arely Clemens PA [address] [place] [address] documented as of this encounter Visit Diagnoses Not on filedocumented in this encounter Care Teams Ticket Collector Or Usher Relationship Specialty Start Date End Date Senia Multani APRN PCP - General Family Medicine 01/20/17 documented as of this encounter
--- OUTSIDE RECORDS SUMMARY | 2024-12-20 13:05 | XMS_ITS | Encounter Summary ---
Author Organization [facility] Address [address] [place] [address] Phone Care Team Providers Care Juke Box Mechanic Name Role Phone Senia Multani APRN, NEFTALI Primary Care Pro vider Mikayla Osorio APRN, GENERAL TELLER Unavailable Reason for Visit * Reason Comments Medication Refill Encounter Details Date Type Department Care Team (Late st Contact Info) Description 12/10/2022 Refill [facility] [address] [place] [address] Senia Multani APRN, GENERAL TELLER [address] [place] [address] Medication Refill Social History Tobacco [...] on file Legal Sex Female 8:15 PM RN TRANSPLANT Gender Identity Not on file Sexual Orientation Not on file documented as of this encounter Miscellaneous Notes * Telephone Encounter - Senia Multani APRN, CNP - 12/10/2022 12:31 PM CDT This statement is for verification that Senia Hadley APRN, CNP have reviewed the [place] Narcotic Prescription Monitoring Program documents for Cinthia Vela 1950 on 12/10/22. I have discussed with Primary Physician who is in agreement with the use of schedule II medication. Medication Dispense History (from 08/12/2022 to 12/10/2022) ALPRAZolam Dispensed Written Strength Quantity Refills Days Supply Provider Pharmacy ALPRAZOLAM 09/15/2022 05/12/2022 0.5 MG 90 2 30 , SENIA MULTANI [facility] External Sources Source Last Checked for Updates Status [facility] 12/10/2022 10:19 AM History Response Filed Diagnoses and all orders for this visit: Anxiety, generalized * Telephone Encounter - Tomy, Berna Hinojosa RN - 12/10/2022 10:23 AM CDT Medication failed the protocol, provider to review and approve the medication order if appropriate. Last Refill 05/12/22 90 tabs 2 refills Last OV 09/14/2022 Next OV Visit date not found Requested Prescriptions Pending Prescriptions Disp Refills ALPRAZolam (XANAX) 0.5 MG Tablet [Pharmacy Med Name: ALPRAZOLAM 0.5MG] 90 Tablet 1 Sig: Take 1 Tablet by mouth 3 times daily as needed for Anxiety. Not Delegated - Benzodiazepines Protocol Failed - 12/10/2022 10:19 AM Failed - This refill cannot be delegated Passed - Visit with relevant provider in past 12 months or upcoming 90 days Recent Visits Date Type Provider Dept 09/14/22 Office Visit MultaniSenia okeefe APRN, CNP [place] 05/12/22 Office Visit Senia Multani APRN, CNP [facility] Showing recent visits within past 365 days and meeting all other requirements Future Appointments No visits were found meeting these conditions. Showing future appointments within next 90 days and meeting all other requirements documented in this encounter Plan of Treatment Upcoming Encounters Date Type Department Care Team (Late st Contact Info) Description 01/02/2025 7:20 AM RN TRANSPLANT Office Visit [facility] Medical Group - Primary [facility] [address] [place] [address] Senia Multani APRN, CNP [address] [place], [place] [address] documented as of this encounter Visit Diagnoses Diagnosis Anxiety, generalized Generalized anxiety disorder documented in this encounter Additional Health Concerns Infection Onset Date Last Indicated Resolved Time C. difficile Rule-Out 02/04/2024 02/04/20242023 8:25 AM RN TRANSPLANT C. difficile 02/04/2024 02/04/2024 05/04/2024 12:1 6 AM CDT Respiratory Rule-Out 02/13/2024 02/13/2024 024 1:58 PM RN TRANSPLANT Assessment Noted Time PHQ-9 Depression Total Score: 1 08/29/19 21 10:29 AM CDT documented as of this encounter Care Teams Juke Box Mechanic Relationship Specialty Start Date End Date Senia Multani APRN, CNP [address] [place] [address] PCP - General Advanced Practice Nurse 06/03/17 Mikayla Osorio APRN, CNP [address] [place] [address] Nurse Practitioner Pulmonary Disease 11/06/20 documented as of this encounter
--- OUTSIDE RECORDS SUMMARY | 2024-12-20 13:05 | XMS_ITS | Encounter Summary ---
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, including shoulder documented in this encounter Results * PATHOLOGY SURGICAL (10/10/2020 1:22 PM CDT) Case Report Surgical Pathology Report Case: [id number] Authorizing Provider: Lisa Mcclure MD Collected: 10/10/2020 01:22 PM Ordering Location: [facility] Received: 10/13/2020 08:20 AM [facility] Laboratory Services Pathologist: Sharri Ervin MD Specimen: Skin, LEFT DISTAL DORSAL FOREARM 10/17/2020 4:08 PM CDT [facility] FINAL DIAGNOSIS SKIN LESION, LEFT DISTAL DORSAL FOREARM, UNORIENTED EXCISIONAL BIOPSY: 1) 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 Gross Description A. LEFT DISTAL DORSAL FOREARM The specimen is labeled Cinthia Vela, left distal dorsal forearm. The name and the [facility] number on the requisition and the specimen container match. Received in formalin is an unoriented ellipse of skin and subcutaneous tissue measuring 3 x 1 x 0.2 cm. The surface contains a white callous lesion measuring 0.5 cm in diameter. The lesion is 1 cm from the closest tip and 0.3 cm from the side margin. The external margins are inked with blue ink. The tips of the ellipse are and submitted between sponges in block A1. The remaining portion of the ellipse is transversely sectioned along the short axis. Nonlesional tissue is submitted in block A2. The portion of the specimen containing the lesion is submitted in block A3. 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 difficile Rule-Out 02/04/2024 02/04/20242023 8:25 AM LITIGATION CLAIM REPRESENTATIVE C. difficile 02/04/2024 02/04/2024 05/04/2024 12:1 6 AM CDT Respiratory Rule-Out 02/13/2024 02/13/2024 024 1:58 PM LITIGATION CLAIM REPRESENTATIVE Assessment Noted Time PHQ-9 Depression Total Score: 1 08/29/19 21 10:29 AM CDT documented as of this encounter Care Teams Train Starter Relationship Specialty Start Date End Date Senia Multani APRN, CHEESE TESTER [address] [place] [address] PCP - General Advanced Practice Nurse 06/03/17 Carlitos Renteria MD [address] [place] [address] Consulting Physician Obstetrics & Gynecology 04/03/19 12/14/21 Mikayla Osorio APRN, CHEESE TESTER [address] [place] [address] Nurse Practitioner Pulmonary Disease 11/06/20 documented as of this encounter
--- OUTSIDE RECORDS SUMMARY | 2024-12-20 13:05 | XMS_ITS | Encounter Summary ---
Author Organization [facility] Address [address] [place] [address] Phone Care Team Providers Care Silver Solderer Name Role Phone Senia Multani APRN, VEIN ACCESS TECHNICIAN Primary Care Pro vider Carlitos Renteria MD Unavailable Unavailable [facility], Mikayla Eddy APRN, VEIN ACCESS TECHNICIAN Unavailable Reason for Visit * Reason Comments Medication Refill Encounter Details Date Type Department Care Team (Late st Contact Info) Description 07/07/2021 Refill [facility] [place] [address] [place] [address] Senia Multani APRN, VEIN ACCESS TECHNICIAN [address], [place] [id number] Medication Refill Social History Tobacco Use Types [...] on file Legal Sex Female 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 No / Unsure 06/25/2021 9:45 AM CDT documented as of this encounter Miscellaneous Notes * Telephone Encounter - Senia Multani APRN, CNP - 07/08/2021 3:13 PM CDT This statement is for verification that ISenia APRN, CNP have reviewed the [place] Narcotic Prescription Monitoring Program documents for Cinthia Vela 1950 on 07/08/21. I have discussed with Primary Physician who is in agreement with the use of schedule II medication. Medication Dispense History No medication dispenses to display (since 03/10/2021). Last query status: History Response Filed. External Sources Source Last Checked for Updates Status [facility] 07/07/2021 9:18 AM History Response Filed Diagnoses and all orders for this visit: Anxiety, generalized * Telephone Encounter - Richa Gavin RN - 07/08/2021 1:54 PM CDT Medication failed the protocol, provider to review and approve the medication order if appropriate. Requested Prescriptions Pending Prescriptions Disp Refills ALPRAZolam (XANAX) 0.5 MG Tablet [Pharmacy Med Name: ALPRAZOLAM 0.5MG] 90 Tablet 0 Sig: TAKE 1 TABLET BY MOUTH UP TO 3 TIMES DAILY NEEDED Not Delegated - Benzodiazepines Protocol Failed - 07/07/2021 8:55 AM Failed - This refill cannot be delegated Passed - Visit with relevant provider in past 12 months or upcoming 90 days Recent Visits Date Type Provider Dept 06/25/21 Office Visit Senia Multani APRN, CNP [facility] 03/23/21 Office Visit Senia Multani APRN, CNP [facility] 11/20/20 Office Visit Senia Multani APRN, CNP [facility] 09/25/20 Office Visit Senia Multani APRN, CNP [facility] 08/27/20 Office Visit Senia Multani APRN, CNP [facility] 07/10/20 Office Visit Senia Multani APRN, CNP [facility] [place] Showing recent visits within past 365 days and meeting all other requirements Future Appointments No visits were found meeting these conditions. Showing future appointments within next 90 days and meeting all other requirements Signed Prescriptions Disp Refills metFORMIN (GLUCOPHAGE) 500 MG Tablet 180 Tablet 2 Sig: TAKE 1 TABLET BY MOUTH TWICE DAILY WITH MEALS Biguanides Protocol Passed - 07/07/2021 8:55 AM Passed - Visit with relevant provider in past 6 months or upcoming 90 days Recent Visits Date Type Provider Dept 06/25/21 Office Visit Senia Multani APRN, CNP [facility] 03/23/21 Office Visit Senia Multani APRN, CNP [facility] Showing recent visits within past 182 days and meeting all other requirements Future Appointments No visits were found meeting these conditions. Showing future appointments within next 90 days and meeting all other requirements Passed - HgA1C on record in past 6 months HGB-A1C Date Value Ref Range Status 03/20/2021 7.4 (H) 4.0 - 6.0 % Final Passed - GFR on record in past 6 months GFR, EST. NONAFRICAN Date Value Ref Range Status 03/20/2021 >60 >=60 Final documented in this encounter Plan of Treatment Upcoming Encounters Date Type Department Care Team (Late st Contact Info) Description 01/02/2025 7:20 AM MASTER CHEF Office Visit [facility] [place] [address] [place] [address] Senia Multani APRN, CNP [address], [place] [id number] documented as of this encounter Visit Diagnoses Diagnosis Anxiety, generalized Generalized anxiety disorder Type 2 diabetes mellitus with hyperglycemia, without long-term current use of insulin documented in this encounter Additional Health Concerns Infection Onset Date Last Indicated Resolved Time COVID - 19 08/03/2021 08/03/2021 08/04/2021 12:0 9 PM CDT COVID - 19 Confirmed 08/03/2021 08/03/2021 022 12:16 AM CDT C. difficile Rule-Out 02/04/2024 02/04/20242023 8:25 AM MASTER CHEF C. difficile 02/04/2024 02/04/2024 05/04/2024 12:1 6 AM CDT Respiratory Rule-Out 02/13/2024 02/13/2024 024 1:58 PM MASTER CHEF Assessment Noted Time PHQ-9 Depression Total Score: 1 08/29/19 10:29 AM CDT documented as of this encounter Care Teams Silver Solderer Relationship Specialty Start Date End Date Senia Multani APRN, VEIN ACCESS TECHNICIAN [address] [place] [address] PCP - General Advanced Practice Nurse 06/03/17 Carlitos Renteria MD [address] [place] [address] Consulting Physician Obstetrics & Gynecology 04/03/19 12/14/21 Mikayla Osorio APRN, VEIN ACCESS TECHNICIAN [address] [place] [address] Nurse Practitioner Pulmonary Disease 11/06/20 documented as of this encounter
--- OUTSIDE RECORDS SUMMARY | 2024-12-20 13:05 | XMS_ITS | Encounter Summary ---
Author Organization [facility] Address [address] [place] [address] Phone Care Team Providers Care Credit Advisor Name Role Phone Senia Multani APRN Primary Care Provider Reason for Referral * - Complete Specialty Diagnoses / Procedures Referred By Ann alvarez Referred To Contact Diagnoses Atherosclerosis of [place] artery of both lower extremities with intermittent claudication ([facility]) Procedures US CARLOS EDUARDO US CARLOS EDUARDO W/EXERCISE Celina Caban MD Referral ID Status Reason Start Date Expiration Date V isits Requested Visits Authorized [id number] Complete 03/29/2019 1 1 ITECTURE INTERNSHIP Encounter Details Date Type Department Care Team (Latest Contact Info) Description 08/14/2019 Transcribe Orders [facility] Vein and Vascular Main [address] [place] [address] Celina Caban MD Atherosclerosis of [place] artery of both lower extremities with intermittent claudication ([facility]) Social History Tobacco Use Types Packs/Day Years [...] on file Legal Sex Female 8:07 AM ARCHITECTURE INTERNSHIP Gender Identity Not on file Sexual Orientation [...] st Contact Info) Description 03/21/2025 9:15 AM ARCHITECTURE INTERNSHIP Office Visit [address] [address] Arely Clemens, PA [address] [place] [address] documented as of this encounter Results * US CARLOS EDUARDO (08/14/2019 10:17 AM CDT) Anatomical Region Laterality Modality Ultrasound 08/14/2019 9:53 AM CDT Impressions 08/14/2019 10:26 AM CDT Accession Exam Completed Date/Time [id number] US CARLOS EDUARDO 08/14/2019 10:17 Requesting: CELINA CABAN CARLOS EDUARDO: Technologist: Kelly Metzger, RD, RDCS, RVT Ankle-brachial index with toe pressure and PPG waveform and multi-level continuous Doppler waveforms performed. Previous Exam: Previous exam performed on 09/04/2018 Right: Pressures (mmHg): Brachial: 163 Posterior tibial: 133 Dorsalis pedis: 116 Greater toe: 105 CARLOS EDUARDO (BUS AIDE): 0.80 CARLOS EDUARDO (DPA): 0.69 TBI: 0.63 Waveforms: Femoral: Monophasic Popliteal: Monophasic Posterior tibial: Monophasic Dorsalis pedis: Biphasic Greater toe: Abnormal Left: Pressures (mmHg): Brachial: 167 Posterior tibial: 128 Dorsalis pedis: 124 Greater toe: 82 CARLOS EDUARDO (BUS AIDE): 0.77 CARLOS EDUARDO (DPA): 0.74 TBI: 0.49 Waveforms: Femoral: Biphasic Popliteal: Biphasic Posterior tibial: Biphasic Dorsalis pedis: Biphasic Greater toe: Abnormal Impression: Right: CARLOS EDUARDO demonstrates moderate disease. There are monophasic waveforms throughout evaluated lower extremity arteries suggestive of inflow arterial disease on this side. TBI is within the mild disease range. The greater toe pressure is 105mmHg which is adequate for lower extremity arterial wound healing in the absence or presence of diabetic disease. Left: CARLOS EDUARDO demonstrates moderate disease. There are biphasic waveforms throughout evaluated lower extremity arteries suggestive of inflow arterial disease on this side. TBI is within the moderate disease range suggestive of either small vessel disease in the feet and/or underlying peripheral arterial disease.. The greater toe pressure is 82mmHg which is adequate for lower extremity arterial wound healing in the absence or presence of diabetic disease. Assisted by Kelly Metzger 08/14/2019 10:26 Electronically Signed and Authenticated by Celina Caban 08/14/2019 10:26 Narrative Procedure Note Celina Caban MD - 08/14/2019 IMPRESSION Accession Exam CompletedDate/Time [id number] CARLOS EDUARDO 08/14/201910:17 Requesting: CELINA CABAN CARLOS EDUARDO: Technologist: Kelly Metzger, RD, RDCS, RVT Ankle-brachial index with toe pressure and PPG waveform and multi- levelcontinuous Doppler waveforms performed. Previous Exam: Previous exam performed on 09/04/2018 Right: Pressures (mmHg): Brachial: 163 Posterior tibial: 133 Dorsalis pedis: 116 Greater toe: 105 CARLOS EDUARDO (BUS AIDE): 0.80 CARLOS EDUARDO (DPA): 0.69 TBI: 0.63 Waveforms: Femoral: Monophasic Popliteal: Monophasic Posterior tibial: Monophasic Dorsalis pedis: Biphasic Greater toe: Abnormal Left: Pressures (mmHg): Brachial: 167 Posterior tibial: 128 Dorsalis pedis: 124 Greater toe: 82 CARLOS EDUARDO (BUS AIDE): 0.77 CARLOS EDUARDO (DPA): 0.74 TBI: 0.49 Waveforms: Femoral: Biphasic Popliteal: Biphasic Posterior tibial: Biphasic Dorsalis pedis: Biphasic Greater toe: Abnormal Impression: Right: CARLOS EDUARDO demonstrates moderate disease. There are monophasic waveforms throughout evaluated lower extremityarteries suggestive of inflow arterial disease on this side. TBI is within the mild disease range. The greater toe pressure is 105mmHg which is adequate for lower extremityarterial wound healing in the absence or presence of diabetic disease. Left: CARLOS EDUARDO demonstrates moderate disease. There are biphasic waveforms throughout evaluated lower extremity arteriessuggestive of inflow arterial disease on this side. TBI is within the moderate disease range suggestive of either small vesseldisease in the feet and/or underlying peripheral arterial disease.. The greater toe pressure is 82mmHg which is adequate for lower extremityarterial wound healing in the absence or presence of diabetic disease. Assisted by Kelly Metzger 08/14/2019 10:26 Electronically Signed and Authenticated by Celina Caban 08/14/201910:26 Celina Caban MD [facility] Final Result documented in this encounter Visit Diagnoses Diagnosis Atherosclerosis of [place] artery of both lower extremities with intermittent claudication (CMS-HCC) Atherosclerosis of [place] arteries of the extremities with intermittent claudication Atherosclerosis of [place] artery of both lower extremities with intermittent claudication (CMS-HCC) Atherosclerosis of [place] arteries of the extremities with intermittent claudication documented in this encounter Care Teams Credit Advisor Relationship Specialty Start Date End Date Senia Multani APRN PCP - General Family Medicine 01/20/17 documented as of this encounter
--- OUTSIDE RECORDS SUMMARY | 2024-12-20 13:05 | XMS_ITS | Encounter Summary ---
Author Organization [facility] Address [address] [place] [address] Phone Care Team Providers Care Multicultural Manager Name Role Phone Senia Multani APRN, NEFTALI Primary Care Pro vider Mikayla Osorio APRN, ANIMAL NURSERY WORKER Unavailable Reason for Visit * Reason Onset Date Comments Referral 01/28/2023 Encounter Details Date Type Department Care Team (Late st Contact Info) Description 01/28/2023 Telephone [facility] Referral Management Services [address] [place] [address] Senia Multani APRN, ANIMAL NURSERY WORKER [address] [place] [address] Referral Social History Tobacco Use Types Packs/Day Years [...] on file Legal Sex Female 8:15 PM REAL ESTATE CLERK Gender Identity Not on file Sexual Orientation Not on file documented as of this encounter Miscellaneous Notes * Telephone Encounter - Sadia Moreno - 01/28/2023 4:18 PM CST SITUATION: Clinical Biochemist requesting provider review Nephrology Referral. BACKGROUND: Referral unable to be processed. ASSESSMENT: Request for provider review due to the following reason(s): Referral order inaccurate. RECOMMENDATION: Based on the above information the provider has the following option(s): Cancel existing referral.,Place new referral order. and The order needs to specify a specialty & a possible provider suggestion and have the special works or other specialist in the patient's network. Please cancel thisreferral and put in a new referral with Nephrology and the special wording. Thank you. Sadia Moreno [facility] - Referrals opt 7 ESTATE CLERK documented in this encounter Plan of Treatment Upcoming Encounters Date Type Department Care Team (Late st Contact Info) Description 01/02/2025 7:20 AM REAL ESTATE CLERK Office Visit [facility] - Primary Care [facility] [address] [place] [address] Senia Multani, LINER REROLL TENDER, ANIMAL NURSERY WORKER [address] [place] [address] documented as of this encounter Visit Diagnoses Not on filedocumented in this encounter Additional Health Concerns Infection Onset Date Last Indicated Resolved Time C. difficile Rule-Out 02/04/2024 02/04/20242023 8:25 AM REAL ESTATE CLERK C. difficile 02/04/2024 02/04/2024 05/04/2024 12:1 6 AM CDT Respiratory Rule-Out 02/13/2024 02/13/202402/12/ 024 1:58 PM REAL ESTATE CLERK Assessment Noted Time PHQ-9 Depression Total Score: 1 08/29/19 10:29 AM CDT documented as of this encounter Care Teams Multicultural Manager Relationship Specialty Start Date End Date Senia Multani APRN, NEFTALI [address] [place], [place] [address] PCP - General Advanced Practice Nurse 06/03/17 Mikayla Osorio APRN, CNP [address] [place] [address] Nurse Practitioner Pulmonary Disease 11/06/20 documented as of this encounter
--- OUTSIDE RECORDS SUMMARY | 2024-12-20 13:05 | XMS_ITS | Encounter Summary ---
Author Organization [facility] Address [address] [place] [address] Phone Care Team Providers Care Wirer Name Role Phone Senia Multani APRN Primary Care Provider Reason for Visit * Reason Onset Date Comments Refill Request 02/02/2021 Encounter Details Date Type Department Care Team (Late st Contact Info) Description 02/02/2021 Refill [facility] Cardiology Main [address] [place] [address] Link Alvarez MD Refill Request Social History Tobacco Use Types [...] on file Legal Sex Female 8:07 AM HAND EDGER Gender Identity Not on file Sexual Orientation Not on file 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 Not on file N ot on file documented as of this encounter Miscellaneous Notes * Telephone Encounter - Jessica Blanca MOA - 02/02/2021 12:49 PM HAND EDGER PLEASE DISCARD THIS MESSAGE THE WRONG PROVIDER WAS SELECTED EDGER * Telephone Encounter - Jessica Blanca MOA - 02/02/2021 12:44 PM CSTSummary: Med refill Pharmacy called stating that the pt needs a refill for the following med Carvedilol 12.5 mg x2 tablets daily 60 tablet dispense Pharmacy verified for [facility] [place] EDGER documented in this encounter Plan of Treatment Upcoming Encounters Date Type Department Care Team (Late st Contact Info) Description 03/21/2025 9:15 AM HAND EDGER Office Visit [facility] Dermatology [address] [address] Arely Clemens, PA [address] [place] [address] documented as of this encounter Visit Diagnoses Diagnosis Essential (primary) hypertension Unspecified essential hypertension documented in this encounter Care Teams Wirer Relationship Specialty Start Date End Date Senia Multani APRN PCP - General Family Medicine 01/20/17 documented as of this encounter
--- OUTSIDE RECORDS SUMMARY | 2024-12-20 13:05 | XMS_ITS | Encounter Summary ---
Author Organization [facility] Address [address] [place] [address] Phone Care Team Providers Care Project Lead Name Role Phone Senia Multani APRN, HISTOLOGIC TECHNICIAN Primary Care Pro vider Carlitos Renteria MD Unavailable Unavailable [facility], Mikayla Eddy APRN, HISTOLOGIC TECHNICIAN Unavailable Reason for Visit * Reason Comments Medication Refill Encounter Details Date Type Department Care Team (Late st Contact Info) Description 06/30/2020 Refill [facility] [address] [place] [address] Senia Multani APRN, HISTOLOGIC TECHNICIAN [address] [place], [place] [id number] Medication Refill Social History Tobacco Use Types Packs/Day Years Used Date Smoking Tobacco: Every Day Cigarettes Smokeless Tobacco: Never Alcohol Use Standard Drinks/Week Comments Yes 0 (1 standard drink = 0.6 oz pur e alcohol) rarely PHQ-2 Answer Date Recorded Total Score - Questions 1-9 0 05/15 Education Answer Date Recorded What is the highest level of school you have completed or the highest degree you have received? Associate degree: occupational, technical, or vocational program 05/27/2020 Comments No Sex and Gender Information Value Date Recorded Sex Assigned at Not on file Legal Sex Female 8:15 PM DUCT LAYER HELPER Gender Identity Not on file Sexual Orientation Not on file COVID-19 Exposure Response Date Recorded In the last month, have you been in contact with someone who was confirmed or suspected to have Coronavirus / COVID-19? No / Unsure 07/03/2020 9:16 AM CDT documented as of this encounter Miscellaneous Notes * Telephone Encounter - Berna Huitron RN - 06/30/2020 2:44 PM CDT Last refill: 01/07/20 90 tabs 1 refill MERARY: 05/27/20 NOV: 08/27/20 Labs: 02/28/20 documented in this encounter Plan of Treatment Upcoming Encounters Date Type Department Care Team (Late st Contact Info) Description 01/02/2025 7:20 AM DUCT LAYER HELPER Office Visit [facility] Medical Group - Primary Care [facility] [address] [place] [address] Senia Multani, DIGITAL X RAY SERVICE ENGINEER, HISTOLOGIC TECHNICIAN [address] [place] [address] documented as of this encounter Visit Diagnoses Diagnosis Benign hypertension- Primary Essential hypertension, benign documented in this encounter Additional Health Concerns Infection Onset Date Last Indicated Resolved Time COVID - 19 06/30/2020 06/30/2020 07/20/2020 12:1 6 AM CDT COVID - 19 08/03/2021 08/03/2021 08/04/2021 12:0 9 PM CDT COVID - 19 Confirmed 08/03/2021 08/03/2021 022 12:16 AM CDT C. difficile Rule-Out 02/04/2024 02/04/20242023 8:25 AM DUCT LAYER HELPER C. difficile 02/04/2024 02/04/2024 05/04/2024 12:1 6 AM CDT Respiratory Rule-Out 02/13/2024 02/13/20242 024 1:58 PM DUCT LAYER HELPER Assessment Noted Time PHQ-9 Depression Total Score: 0 05/28/19 21 10:41 AM CDT documented as of this encounter Care Teams Project Lead Relationship Specialty Start Date End Date Senia Multani APRN, HISTOLOGIC TECHNICIAN [address] [place] [address] PCP - General Advanced Practice Nurse 06/03/17 Carlitos Renteria MD [address] [place] [address] Consulting Physician Obstetrics & Gynecology 04/03/19 12/14/21 Mikayla Osorio APRN, HISTOLOGIC TECHNICIAN [address] [place] [address] Nurse Practitioner Pulmonary Disease 11/06/20 documented as of this encounter
--- OUTSIDE RECORDS SUMMARY | 2024-12-20 13:05 | XMS_ITS | Clinical Summary ---
Author Organization [facility] Address [address] [place] [address] Care Team Providers Care Teradata Solution Architect Name Role Phone None, Provider MD Primary Care Provider Unavaila ble Allergies Active Allergy Reactions Criticality Noted Date Comments Ciprofloxacin Hives,Rash Low 11/16/2018 Penicillins Anaphylaxis High 05/31/2017 Hypotension, passed out, N/V, anxiety Hypotension, passed out, N/V, anxiety Medications ALPRAZolam 0.5 MG tablet Take 0.5 mg by mouth daily as needed. 05/27/2020 Active metoprolol succinate ER 50 MG 24 hr tablet Take 50 mg by mouth daily. 06/30/2020 Active losartan 100 MG tablet Take 100 mg by mouth daily. 09/10/2020 Active metFORMIN 500 MG tablet Take 500 mg by mouth 2 (two) times daily with meals. 07/30/2020 Active hydrALAZINE 25 MG tablet Take 1 tablet (25 mg total) by mouth 3 (three) times daily as needed (for elevated blood pressure). 15 tablet 09/18/2020 Active Social History Tobacco Use Types Packs/Day Years Used Date Smoking Tobacco: Every Day Cigarettes Smokeless Tobacco: Never Alcohol Use Standard Drinks/Week Comments Never 0 (1 standard drink = 0.6 oz pur e alcohol) Comments No Sex and Gender Information Value Date Recorded Sex Assigned at Not on file Legal Sex Female 2:32 PM CDT Gender Identity Not on file Sexual Orientation Not on file Last Filed Vital Signs Vital Sign Reading Time Taken Comments Blood Pressure 171/60 09/18/2020 6:30 PM CDT Pulse 73 09/18/2020 6:30 PM CDT Temperature 37 C (98.6 F) 09/18/2020 10:13 AM CDT Respiratory Rate 17 09/18/2020 6:30 PM CDT Oxygen Saturation 96% 09/18/2020 6:30 PM CDT Inhaled Oxygen Concentration - - Weight 64.4 kg (142 lb) 09/18/2020 10:13 AM CDT Height 157.5 cm (5' 2) 09/18/2020 10:13 AM CDT Body Mass Index 25.97 09/18/2020 10:13 AM CDT Plan of Treatment Health Maintenance Due Date Last Done Comments Colorectal Cancer Screening Colonoscopy (10 Years) 1950 Hepatitis C 1968 Mammogram Screening 1990 Zoster Vaccines (1 of 2) 2000 Annual Medicare Wellness Visit 11/27/2015 Dexa Scan (General) 11/27/2015 Pneumococcal Vaccine: 50+ Years (2 of 2 - PCV) 11/11/2017 11/11/2016 COVID-19 Vaccine ( - season) 2024 Influenza Adult (#1) 2024 11/30/2019, 12/02/2018, 12/15/2017, Additional history exists DTaP, Tdap and Td Vaccines (2 - Td or Tdap) 09/19/2025 09/20/2015 RSV Immunization or 60+ Years (1 - 1-dose 75+ series) 2025 Hepatitis A Vaccines Aged Out No long er eligible based on patient's age to complete this topic Meningococcal B Vaccine Aged Out No l onger eligible based on patient's age to complete this topic Meningococcal Vaccine Aged Out No bogdan duane eligible based on patient's age to complete this topic RSV Immunizations Under 20 Months Aged Out No longer eligible based on patient's age to complete this topic Insurance [employer] MEDICARE Care Teams Teradata Solution Architect Relationship Specialty Start Date End Date None, Provider, PCP - General 09/18/20
--- OUTSIDE RECORDS SUMMARY | 2024-12-20 13:05 | XMS_ITS | Encounter Summary ---
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 Not on file N ot on file documented as of this encounter Miscellaneous Notes * Telephone Encounter - Myrtle Alegre - 11/29/2023 11:51 AM CDT Colon AM 01/08 Renetta Dx: lower abd pain; change in bowel habits documented in this encounter Plan of Treatment Upcoming Encounters Date Type Department Care Team (Late st Contact Info) Description 03/21/2025 9:15 AM GRAPHIC ARTS TECHNICIAN Office Visit [address] [address] Arely Clemens, PA [address] [place] [address] documented as of this encounter Visit Diagnoses Not on filedocumented in this encounter Care Teams Aerial Advertiser Relationship Specialty Start Date End Date Senia Multani APRN PCP - General Family Medicine 01/20/17 documented as of this encounter
--- OUTSIDE RECORDS SUMMARY | 2024-12-20 13:05 | XMS_ITS | Encounter Summary ---
Author Organization [facility] Address [address] [place] [address] Phone Care Team Providers Care Expeller Operator Name Role Phone Senia Multani APRN, NEFTALI Primary Care Pro vider Mikayla Osorio APRN, CALLISTHENICS INSTRUCTOR Unavailable Reason for Visit * Reason Comments Medication Refill Encounter Details Date Type Department Care Team (Late st Contact Info) Description 04/01/2023 Refill [facility] [address] [place] [address] Senia Multani APRN, CALLISTHENICS INSTRUCTOR [address] [place] [address] Medication Refill Social History Tobacco [...] on file Legal Sex Female 8:15 PM DIABETIC EDUCATOR Gender Identity Not on file Sexual Orientation Not on file documented as of this encounter Miscellaneous Notes * Telephone Encounter - Berna Huitron RN - 04/01/2023 1:47 PM CST Medication failed the protocol, provider to review and approve the medication order if appropriate. Last Refill 02/22/23 HISTORICAL PROVIDER Last OV 09/14/2022 Next OV 04/07/2023 Lab 09/17/22, 05/07/22 Requested Prescriptions Pending Prescriptions Disp Refills metFORMIN (GLUCOPHAGE) 500 MG Tablet [Pharmacy Med Name: METFORMIN 500MG] 180 Tablet 1 Sig: TAKE 1 TABLET BY MOUTH TWICE DAILY WITH MEALS Biguanides Protocol Failed - 04/01/2023 11:53 AM Failed - HgA1C on record in past 6 months HGB-A1C Date Value Ref Range Status 10/14/2021 6.0 4.0 - 6.0 % Final Failed - GFR on record in past 6 months GFR, EST. NONAFRICAN Date Value Ref Range Status 05/07/2022 >60 >=60 Final Passed - Visit with relevant provider in past 6 months or upcoming 90 days Recent Visits No visits were found meeting these conditions. Showing recent visits within past 182 days and meeting all other requirements Future Appointments Date Type Provider Dept 04/07/23 Appointment Senia Multani APRN, NEFTALI [facility] Showing future appointments within next 90 days and meeting all other requirements ETIC EDUCATOR documented in this encounter Plan of Treatment Upcoming Encounters Date Type Department Care Team (Late st Contact Info) Description 01/02/2025 7:20 AM DIABETIC EDUCATOR Office Visit [facility] - [facility] [address] [place] [address] Senia Multani APRN, CALLISTHENICS INSTRUCTOR [address] [place] [address] documented as of this encounter Visit Diagnoses Not on filedocumented in this encounter Additional Health Concerns Infection Onset Date Last Indicated Resolved Time C. difficile Rule-Out 02/04/2024 02/04/20242023 8:25 AM DIABETIC EDUCATOR C. difficile 02/04/2024 02/04/2024 05/04/2024 12:1 6 AM CDT Respiratory Rule-Out 02/13/2024 02/13/2024 024 1:58 PM DIABETIC EDUCATOR Assessment Noted Time PHQ-9 Depression Total Score: 1 08/29/19 10:29 AM CDT documented as of this encounter Care Teams Expeller Operator Relationship Specialty Start Date End Date Senia Multani, LIFE SKILLS SPECIALIST, CALLISTHENICS INSTRUCTOR [address] [place] [address] PCP - General Advanced Practice Nurse 06/03/17 Mikayla Osorio APRN, CALLISTHENICS INSTRUCTOR [address] [place] [address] Nurse Practitioner Pulmonary Disease 11/06/20 documented as of this encounter
--- OUTSIDE RECORDS SUMMARY | 2024-12-20 13:05 | XMS_ITS | Encounter Summary ---
Author Organization [facility] Address [address] [place] [address] Phone Care Team Providers Care Sheep Clipper Name Role Phone Senia Multani APRN Primary Care Provider Encounter Details Date Type Department Care Team ([facility] st Contact Info) Description 01/06/2024 Telephone [facility] [address] [place], [place] [id number] Shania Jackson MD Social History Tobacco Use [...] on file Legal Sex Female 8:07 AM INDEPENDENT FREIGHT AGENT Gender Identity Not on file Sexual Orientation Not on file Occupation Industry Job Start Date Job End Date [employer] Not on file Not on file N ot on file documented as of this encounter Functional Status documented as of this encounter Mental Status * Question Answer Entry Date Author RASS ([place] Agitation-Sedation Scale) 0-->alert and calm 01/09/2024 9:40 AM INDEPENDENT FREIGHT AGENT Allie Shrestha RN * Question Answer Entry Date Author Level of Consciousness alert 9:40 AM INDEPENDENT FREIGHT AGENT Allie Shrestha RN Cognitive/Neuro/Behavioral WDL level of consciousness 01/09/2024 9:40 AM INDEPENDENT FREIGHT AGENT Allie Shrestha RN documented in this encounter Miscellaneous Notes * Telephone Encounter - Zeb Vasques - 01/06/2024 9:09 AM CST 9:09 AM [id number] LM & DHI CALL BACK NUMBER & MCM. PENDENT FREIGHT AGENT documented in this encounter Plan of Treatment Upcoming Encounters Date Type Department Care Team (Late st Contact Info) Description 03/21/2025 9:15 AM INDEPENDENT FREIGHT AGENT Office Visit [address] [address] Arely Clemens, PA [address] [place] [address] documented as of this encounter Visit Diagnoses Not on filedocumented in this encounter Care Teams Sheep Clipper Relationship Specialty Start Date End Date Senia Multani APRN PCP - General Family Medicine 01/20/17 documented as of this encounter
--- OUTSIDE RECORDS SUMMARY | 2024-12-20 13:05 | XMS_ITS | Encounter Summary ---
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 Gender Identity Not on file Sexual Orientation Not on file documented as of this encounter Plan of Treatment Upcoming Encounters Date Type Department Care Team (Late st Contact Info) Description 03/21/2025 9:15 AM OUTGOING INSPECTOR Office Visit [facility] Dermatology [facility] [address] [place] [address] Arely Clemens, PA [address] [place] [address] documented as of this encounter Results * COVID-19 VIRUS PCR (2019 NOVEL CORONAVIRUS) (08/20/2019 11:00 AM CDT) COVID-19 SOURCE Nasal Swab [facility] No [facility] COVID-19 RESULT NOT DETECTED C [facility] Comment: Test Performed by Mult[employer] manager data warehousing-PCR. The [place] FDA has made this test available under an emergency access mechanism called an Emergency Use Authorization (EUA). The EUA is supported by the [place] of Health and Human Service's (HHS's) declaration that circumstances exist to justify the emergency use of in vitro diagnostics (IVDs) for the detection and/or diagnosis of the virus that causes COVID-19. An IVD made available under an EUA has not undergone the same type of review as an FDA-approved or cleared IVD. FDA may issue an EUA when certain criteria are met, which includes that there are no adequate, approved, available alternatives, and based on the totality of scientific evidence available, it is reasonable to believe that this IVD may be effective in the detection of the virus that causes COVID-19. The EUA for this test is in effect for the duration of the COVID-19 declaration justifying emergency use of IVDs, unless terminated or revoked (after which the test may no longer be used). [facility], [address] [place] [id number] SWAB OF INTERNAL NOSE / Unknown 08/20/2019 11:00 AM CDT 08/20/2019 3:07 PM CDT us Osman Richardson MD HEM/CHEM/[id number] F inal Result [facility] [address] [place] [id number], documented in this encounter Visit Diagnoses Diagnosis Pre-operative laboratory examination- Primary Pre-procedural laboratory examination documented in this encounter Care Teams Package Collector Relationship Specialty Start Date End Date Senia Multani EVELYN PCP - General Family Medicine 01/20/17 documented as of this encounter
== END 2024-12-19 14:40 | disposition home or self-care (01) ==
PROVIDERS: Emergency Provider Nurse Practitioner
DX: R35.0 Frequency of micturition (principal); R39.15 Urgency of urination; H61.22 Impacted cerumen, left ear; H65.02 Acute serous otitis media, left ear; I10 Essential (primary) hypertension; Z86.73 Personal history of transient ischemic attack (TIA), and cerebral infarction without residual deficits; Z95.5 Presence of coronary angioplasty implant and graft
CPT/HCPCS: 69210; 81003; 87077; 87086; 87186; 99213; A9270; G0463